=== PATIENT | female | born 1965 | race Caucasian/White ===

== ENCOUNTER 2016-06-18 18:49 | Emergency (ER) | payer OTHER ==
[~2016-06-18] VITALS: Ht 172.7 cm; Wt 95.0 kg
[~2016-06-18 18:49] MED LIST: ASPI325T PO; CHOL1CAP6 PO; HYDR-2768 PO; METO25 PO; NAPR-576 PO; ROSU40 PO
[2016-06-18 18:52] VITALS: BP 123/90; PULSE 116; RESP 17; TEMP 97.6; O2SAT 98
--- NOTE | 2016-06-19 22:48 | EKG ---
Date Performed: 06/18/2016 Time Performed: 19:31:36 PTAGE: 51 years EKG: Sinus rhythm POSSIBLE LEFT ATRIAL ENLARGEMENT POSSIBLE LEFT VENTRICULAR HYPERTROPHY ABNORMAL ECG PREVIOUS TRACING : 06/20/2015 08.22 DOCTOR: Bill Dennis Interpretating Date/Time 06/19/2016 22:44:56
== END 2016-06-18 20:01 | disposition left against medical advice (07) ==
LOC: NED 18:49
DX: R07.9 Chest pain, unspecified (principal); R94.31 Abnormal electrocardiogram [ECG] [EKG]
CPT/HCPCS: 93005; 99281

== ENCOUNTER 2016-07-01 21:29 | Inpatient (IN) | payer OTHER ==
[2016-07-01 21:31] VITALS: BP 196/85; PULSE 113; RESP 18; TEMP 97.4; O2SAT 100
[2016-07-01 21:43] VITALS: BP 171/98; PULSE 151; RESP 18; O2SAT 99
--- NOTE | 2016-07-01 21:44 | PD ---
HPI Chief Complaint: palpitations, chest pain Time Seen by Provider: 21:38 Travel History International Travel<30 days: No Contact w/Intl Traveler<30days: No History of Present Illness HPI 51-year-old female with a history of atrial fibrillation on metoprolol and aspirin arrives with chest pressure starting while she was operating a chainsaw. He describes a constant chest pain for about 5 hours now. Immediately after the symptoms started she took a metoprolol tablet. she reports strict compliance of aspirin and metoprolol. She denies any recent over exertion. A couple weeks prior she had a URI which resolved. She has no family history of early onset coronary artery disease. She denies a history of diabetes. She does not smoke. She was seen here within the last couple weeks in the waiting room for atrial fibrillation with a rapid ventricular response event however it resolved spontaneously and she left before evaluation. In the ER Valsalva type maneuver does not change heart rate. Lightheadedness/ dizziness accompanied the onset of atrial fibrillation. PFSH Past Medical History Heart Rhythm Problems: Yes (AFIB) Cardiovascular Problems: Yes (HTN, AFIB, ABLATION) Hypertension: Yes Past Surgical History Cardiac Surgery: Yes (CABG) Coronary Artery Bypass Graft: Yes Social History Alcohol Use: Yes Tobacco Use: No Substance Use: No Allergies-Medications (Allergen,Severity, Reaction): Coded Allergies: No Known Allergies (Unverified , 06/18/16) Reported Meds & Prescriptions Reported Meds & Active Scripts Active Reported Crestor (Rosuvastatin Calcium) 20 Mg Tab 20 Mg PO DAILY Metoprolol Tartrate 25 Mg Tab 25 Mg PO BID Aspirin 325 Mg Tab 325 Mg PO DAILY Review of Systems Except as stated in HPI: all other systems reviewed are Neg Physical Exam Narrative GENERAL: 51 yo F, pleasant, mild distress SKIN: Warm and dry. HEAD: Atraumatic. Normocephalic. EYES: Pupils equal and round. No scleral icterus. No injection or drainage. ENT: No nasal bleeding or discharge. Mucous membranes pink and moist. NECK: Trachea midline. No JVD. CARDIOVASCULAR: Tachycardia. Irregular. RESPIRATORY: No accessory muscle use. Clear to auscultation. Breath sounds equal bilaterally. GASTROINTESTINAL: Abdomen soft, non-tender, nondistended. Hepatic and splenic margins not palpable. MUSCULOSKELETAL: Extremities without clubbing, cyanosis, or edema. No obvious deformities. NEUROLOGICAL: Awake and alert. No obvious cranial nerve deficits. Motor grossly within normal limits. Five out of 5 muscle strength in the arms and legs. Normal speech. PSYCHIATRIC: Appropriate mood and affect; insight and judgment normal. Data Data Last Documented VS Vital Signs Date Time Temp Pulse Resp B/P Pulse Ox O2 Delivery O2 Flow Rate FiO2 07/01/16 22:59 52 18 131/104 99 07/01/16 22:06 Nasal Cannula 2 07/01/16 21:31 97.4 Orders Diltiazem Inj (Cardizem Inj) (07/01/16 21:51) Electrocardiogram (07/01/16 21:53) Basic Metabolic Panel (Bmp) (07/01/16 21:53) Ckmb (Isoenzyme) Profile (07/01/16 21:53) Complete Blood Count With Diff (07/01/16 21:53) Magnesium (Mg) (07/01/16 21:53) Prothrombin Time / Inr (Pt) (07/01/16 21:53) Act Partial Throm Time (Ptt) (07/01/16 21:53) Troponin I (07/01/16 21:53) Chest, Single Ap (07/01/16 21:53) Ecg Monitoring (07/01/16 21:53) Iv Access Insert/Monitor (07/01/16 21:53) Oximetry (07/01/16 21:53) Oxygen Administration (07/01/16 21:53) Sodium Chloride 0.9% Flush (Ns Flush) (07/01/16 22:00) Sodium Chlorid 0.9% 500 Ml Inj (Ns 500 M (07/01/16 22:00) Diltiazem Inj (Cardizem Inj) (07/01/16 22:00) Diltiazem Inj (Cardizem Inj) (07/01/16 22:00) Vital Signs (Adult) Q15MX4,Q4H (07/01/16 21:53) Oil Inspector / Telemetry (07/01/16 21:53) Cardiac Rhythm BOYD.Q8H (07/01/16 21:53) ^ Notify Dr: Other (07/01/16 21:53) Diltiazem Inj (Cardizem Inj) (07/01/16 22:00) CKMB (07/01/16 22:04) CKMB% (07/01/16 22:04) Electrocardiogram (07/01/16 ) Admit Order (Ed Use Only) (07/01/16 23:45) Labs Laboratory Tests Test 07/01/16 22:04 White Blood Count 17.3 TH/MM3 Red Blood Count 4.67 MIL/MM3 Hemoglobin 13.9 GM/DL Hematocrit 41.7 % Mean Corpuscular Volume 89.3 FL Mean Corpuscular Hemoglobin 29.8 PG Mean Corpuscular Hemoglobin 33.3 % Concent Red Cell Distribution Width 13.7 % Platelet Count 144 TH/MM3 Mean Platelet Volume 9.3 FL Neutrophils (%) (Auto) 77.0 % Lymphocytes (%) (Auto) 17.4 % Monocytes (%) (Auto) 4.9 % Eosinophils (%) (Auto) 0.1 % Basophils (%) (Auto) 0.6 % Neutrophils # (Auto) 13.4 TH/MM3 Lymphocytes # (Auto) 3.0 TH/MM3 Monocytes # (Auto) 0.8 TH/MM3 Eosinophils # (Auto) 0.0 TH/MM3 Basophils # (Auto) 0.1 TH/MM3 CBC Comment DIFF FINAL Differential Comment Prothrombin Time 10.7 SEC Prothromb Time International 1.0 RATIO Ratio Activated Partial 26.6 SEC Thromboplast Time Sodium Level 138 MEQ/L Potassium Level 4.0 MEQ/L Chloride Level 104 MEQ/L Carbon Dioxide Level 24.4 MEQ/L Anion Gap 10 MEQ/L Blood Urea Nitrogen 24 MG/DL Creatinine 1.06 MG/DL Estimat Glomerular Filtration 54 ML/MIN Rate Random Glucose 116 MG/DL Calcium Level 9.6 MG/DL Magnesium Level 2.0 MG/DL Total Creatine Kinase 117 U/L Creatine Kinase MB 3.2 NG/ML Troponin I 0.16 NG/ML [facility] Medical Decision Making Medical Screen Exam Complete: Yes Emergency Medical Condition: Yes Differential Diagnosis NSTEMI, unstable angina, coronary vasospasm, PE, PTX, aortic dissection, pericarditis, myocarditis, endocarditis, PNA, esophageal disease, aneurysm, musculoskeletal etiologies, anxiety, cocaine/sympathomimetic abuse Narrative Course EKG reveals atrial fibrillation with a rate of [address] changes present Repeat EKG demonstrates a sinus rhythm with a rate of 48 CBC & BMP Diagram 07/01/16 22:04 Tn 0.16 INR 1.0 Last 24 hours Impressions Chest X-Ray 2/1/17 2153 Signed Impressions: Service Date/Time: Friday, July 01, 2016 21:53 - CONCLUSION: No acute disease. Rob Ulloa MD Patient received 20 mg of IV diltiazem in the heart rate dropped to about 110 120. A second 20 mg boluses given about 15 minutes later and the heart rate dropped to about 50. She has no chest pain at 11:05 PM. She is in sinus rhythm. The troponin resulted at 0.16. Patient will be admitted for further investigation. Discussed with Dr. Junior. Critical Care Narrative Aggregate critical care time was 35 minutes. Time to perform other separately billable procedures was not included in the critical care time. My time did not include minutes spent treating any other patients simultaneously or on activities that did not directly contribute to the patient's treatment. The services I provided to this patient were to treat and/or prevent clinically significant deterioration that could result in: Cardiopulmonary arrest I provided critical care services requiring my management, as noted below: Chart data review, documentation time, medication orders and management, vital sign assessments/reviewing monitor data, ordering and reviewing lab tests, ordering and interpreting/reviewing x-rays and diagnostic studies, care of the patient and discussion of the patient with the admitting physicians. Diagnosis Primary Impression: Atrial fibrillation with RVR Additional Impressions: Chest pain Qualified Code: R07.9 - Chest pain, unspecified type Elevated troponin Admitting Information Admitting Physician Requests: Yuniel Blount MD Jul 01, 2016 21:43
[2016-07-01] MEDS ORDERED: DILTIAZEM HCL 25 MG/5 ML VIAL ONE (21:51)
[2016-07-01] MEDS ORDERED: METO25TA3 PO (21:52)
[2016-07-01] MEDS ORDERED: ASPI325T PO (21:52)
[2016-07-01] MEDS ORDERED: ROSU20 PO (21:52)
[2016-07-01] MEDS ORDERED: DILTIAZEM INJ 125 MG in SODIUM CHLORIDE 0.9% INJ 100 ML IV SCH (22:00)
[2016-07-01] MEDS ORDERED: SODIUM CHLORIDE 0.9% FLUSH 5 ML FLUSH IVF PRN (22:00)
[2016-07-01] MEDS ORDERED: SODIUM CHLORID 0.9% 500 ML INJ 500 ML IV ONE (22:00)
[2016-07-01] MEDS ORDERED: DILTIAZEM HCL 25 MG/5 ML VIAL IV ONE ×2 (22:00)
[2016-07-01 22:06] VITALS: RESP 18; O2SAT 98
--- NOTE | 2016-07-01 22:07 | RADRPT ---
EXAM DATE/TIME: 07/01/2016 21:53 [facility] COMPARISON: CHEST SINGLE AP, June 18, 2015, 23:39. INDICATIONS : Intermittent chest pain. MEDICAL HISTORY : None. SURGICAL HISTORY : Heart ablasion. ENCOUNTER: Initial ACUITY: 1 day PAIN SCORE: 10/10 LOCATION: middle chest. FINDINGS: A single view of the chest demonstrates the lungs to be symmetrically aerated without evidence of mas s, infiltrate or effusion. The cardiomediastinal contours are unremarkable. Osseous structures are intact. CONCLUSION: No acute disease. Rob Ulloa MD on July 01, 2016 at 22:06 Board Certified Radiologist. This report was verified electronically.
[2016-07-01 22:18] LABS: AUTOMATED NEUTROPHIL # 13.4 TH/MM3 (1.8-7.7); BASOPHIL # 0.1 TH/MM3 (0-0.2); BASOPHIL % 0.6 % (0.0-2.0); EOSINOPHIL % 0.1 % (0.0-4.0); HEMATOCRIT 41.7 % (35.0-46.0); HEMO FLAGS DIFF FINAL; LYMPH % 17.4 % (9.0-44.0); MEAN CELL VOLUME 89.3 FL (80.0-100.0); MEAN CORPUSCULAR HEMOGLOBIN 29.8 PG (27.0-34.0); MEAN CORPUSCULAR HGB CONC 33.3 % (32.0-36.0); MONO % 4.9 % (0.0-8.0); PLATELET COUNT 144 TH/MM3 (150-450); RED BLOOD COUNT 4.67 MIL/MM3 (4.00-5.30); RED CELL DISTRIBUTION WIDTH 13.7 % (11.6-17.2); WHITE BLOOD COUNT 17.3 TH/MM3 (4.0-11.0)
[2016-07-01 22:32] LABS: ANION GAP 10 MEQ/L (5-15); BICARBONATE 24.4 MEQ/L (21.0-32.0); BLOOD UREA NITROGEN 24 MG/DL (7-18); CHLORIDE 104 MEQ/L (98-107); GLOMERULAR FILTRATION RATE 54 ML/MIN (>89); SODIUM (NA) 138 MEQ/L (136-145)
[2016-07-01 22:35] LABS: CREATINE KINASE 117 U/L (26-192)
[2016-07-01 22:37] LABS: APTT (PATIENT) 26.6 SEC (24.3-30.1); PROTHROMBIN TIME - PATIENT 10.7 SEC (9.8-11.6)
[2016-07-01 22:48] LABS: CKMB 3.2 NG/ML (0.5-3.6)
[2016-07-01 22:59] VITALS: BP 131/104; PULSE 52; RESP 18; O2SAT 99
[2016-07-01] MEDS ORDERED: SODIUM CHLOR 0.9% 1000 ML INJ 1,000 ML IV SCH (23:47)
[2016-07-02] VITALS (7 sets, daily range): BP systolic 121–163; BP diastolic 72–92; PULSE 52–62; RESP 16–18; O2SAT 96–100
[2016-07-02] MEDS ORDERED: NALOXONE HCL 0.4 MG/ML AMP IV PRN
[2016-07-02] MEDS ORDERED: SODIUM CHLORIDE 0.9% FLUSH 5 ML FLUSH FLUSH PRN
--- NOTE | 2016-07-02 04:03 | HHI.HP ---
[facility] Service [facility] Primary Care Physician Unknown Admission Diagnosis AFib RVR, CP, Tn 0.18 Diagnoses: Travel History International Travel<30 Days: No Contact w/Intl Traveler <30 Da: No Traveled to Known Affected Are: No Past Family Social History Allergies: Coded Allergies: No Known Allergies (Unverified , 06/18/16) Physical Exam Vital Signs Vital Signs Date Time Temp Pulse Resp B/P Pulse Ox O2 Delivery O2 Flow Rate FiO2 07/02/16 02:20 54 18 150/79 99 07/02/16 00:12 52 18 133/73 100 Nasal Cannula 2 07/01/16 22:59 52 18 131/104 99 07/01/16 22:06 18 98 Nasal Cannula 2 07/01/16 22:06 97 Nasal Cannula 2 07/01/16 21:46 153 18 97 Nasal Cannula 2 07/01/16 21:43 151 18 171/98 99 07/01/16 21:31 97.4 113 18 196/85 100 Room Air Physical Exam GENERAL: This is a well-nourished, well-developed patient, in no apparent distress. SKIN: No rashes, ecchymoses or lesions. Cool and dry. HEAD: Atraumatic. Normocephalic. No temporal or scalp tenderness. EYES: Pupils equal round and reactive. Extraocular motions intact. No scleral icterus. No injection or drainage. ENT: Nose without bleeding, purulent drainage or septal hematoma. Throat without erythema, tonsillar hypertrophy or exudate. Uvula midline. Airway patent. NECK: Trachea midline. No JVD or lymphadenopathy. Supple, nontender, no meningeal signs. CARDIOVASCULAR: Regular rate and rhythm without murmurs, gallops, or rubs. RESPIRATORY: Clear to auscultation. Breath sounds equal bilaterally. No wheezes , rales, or rhonchi. GASTROINTESTINAL: Abdomen soft, non-tender, nondistended. No hepato-splenomegaly , or palpable masses. No guarding. MUSCULOSKELETAL: Extremities without clubbing, cyanosis, or edema. No joint tenderness, effusion, or edema noted. No calf tenderness. Negative Homans sign bilaterally. NEUROLOGICAL: Awake and alert. Cranial nerves II through XII intact. Motor and sensory grossly within normal limits. Five out of 5 muscle strength in all muscle groups. Normal speech. Laboratory Laboratory Tests Test 07/01/16 22:04 White Blood Count 17.3 Red Blood Count 4.67 Hemoglobin 13.9 Hematocrit 41.7 Mean Corpuscular Volume 89.3 Mean Corpuscular Hemoglobin 29.8 Mean Corpuscular Hemoglobin 33.3 Concent Red Cell Distribution Width 13.7 Platelet Count 144 Mean Platelet Volume 9.3 Neutrophils (%) (Auto) 77.0 Lymphocytes (%) (Auto) 17.4 Monocytes (%) (Auto) 4.9 Eosinophils (%) (Auto) 0.1 Basophils (%) (Auto) 0.6 Neutrophils # (Auto) 13.4 Lymphocytes # (Auto) 3.0 Monocytes # (Auto) 0.8 Eosinophils # (Auto) 0.0 Basophils # (Auto) 0.1 CBC Comment DIFF FINAL Differential Comment Prothrombin Time 10.7 Prothromb Time International 1.0 Ratio Activated Partial 26.6 Thromboplast Time Sodium Level 138 Potassium Level 4.0 Chloride Level 104 Carbon Dioxide Level 24.4 Anion Gap 10 Blood Urea Nitrogen 24 Creatinine 1.06 Estimat Glomerular Filtration 54 Rate Random Glucose 116 Calcium Level 9.6 Magnesium Level 2.0 Total Creatine Kinase 117 Creatine Kinase MB 3.2 Troponin I 0.16 Result Diagram: 07/01/16220307/01/162203 Alfonso Junior MD Jul 02, 2016 04:03
[2016-07-02 04:40] LABS: BICARBONATE 27.6 MEQ/L (21.0-32.0); POTASSIUM 3.7 MEQ/L (3.5-5.1)
[2016-07-02 05:49] LABS: BASOPHIL # 0.1 TH/MM3 (0-0.2); BASOPHIL % 0.8 % (0.0-2.0); EOSINOPHIL # 0.1 TH/MM3 (0-0.4); EOSINOPHIL % 0.5 % (0.0-4.0); HEMATOCRIT 36.1 % (35.0-46.0); HEMO FLAGS DIFF FINAL; LYMPH % 31.4 % (9.0-44.0); LYMPHOCYTE # 4.4 TH/MM3 (1.0-4.8); MEAN CORPUSCULAR HEMOGLOBIN 30.3 PG (27.0-34.0); MEAN CORPUSCULAR HGB CONC 34.1 % (32.0-36.0); MONO % 10.5 % (0.0-8.0); NEUT % 56.8 % (16.0-70.0); PLATELET COUNT 142 TH/MM3 (150-450); RED BLOOD COUNT 4.05 MIL/MM3 (4.00-5.30); RED CELL DISTRIBUTION WIDTH 13.7 % (11.6-17.2)
[2016-07-02] MEDS ORDERED: HEPARIN SODIUM - IV 10,000 UNITS/10 ML VIAL IV ONE (08:00)
[2016-07-02] MEDS ORDERED: HEPARIN-D5W INJ 250 ML IV SCH (08:00)
--- NOTE | 2016-07-02 08:04 | HHI.HP ---
[facility] Admission Diagnosis AFib RVR, CP, Tn 0.18 Diagnoses: Chief Complaint: Palpitations, chest pain Travel History International Travel<30 Days: No Contact w/Intl Traveler <30 Da: No Traveled to Known Affected Are: No History of Present Illness History from patient, ER physician communication, and review of medical records. Patient reported that she was using her chainsaw and all of a sudden started feeling palpitations. She stated that she has history of atrial fibrillation and she knew that she was going into A. fib with RVR. She then started having chest pains, substernal, with radiation to her jaw, and left upper extremity. She therefore called 911. 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 She states she has had ablation done about 4 years ago. She was told at that time that she has hypertrophic cardiomyopathy which is unusual for her age. She was told that if her A. fib does not improve and affects her heart more, she might need AICD. She has had angiograms done previously and was told that she has clean coronaries. She denies any peripheral edema. Denies dyspnea on exertion. Denies any recent fever/nausea/vomiting/diarrhea/urinary burning or pain on urination. Denies any hematemesis/hematochezia/melena/hematuria. In the emergency room, patient was noted to be in A. fib with RVR and was given Cardizem IV boluses. After 2 doses of Cardizem 20 mg IV, patient's heart rate came down to 57. Review of Systems Other 12 point review of system is obtained and is negative apart from what is mentioned in HPI Past Family Social History Past Medical History Atrial fibrillation Hypertension Sleep apnea Hypertrophic cardiomyopathy Past Surgical History Ablation Right knee replacement Reported Medications Patient's medications listed in EMRreviewed Allergies: Coded Allergies: No Known Allergies (Unverified , 06/18/16) Family History Denies any family history of any medical conditions apart from cancers in some members. Social History Denies smoking/alcohol abuse/drug abuse. Physical Exam Vital Signs Vital Signs Date Time Temp Pulse Resp B/P Pulse Ox O2 Delivery O2 Flow Rate FiO2 07/02/16 06:12 54 18 163/92 96 07/02/16 04:16 53 18 148/77 99 07/02/16 02:20 54 18 150/79 99 07/02/16 00:12 52 18 133/73 100 Nasal Cannula 2 07/01/16 22:59 52 18 131/104 99 07/01/16 22:06 18 98 Nasal Cannula 2 07/01/16 22:06 97 Nasal Cannula 2 07/01/16 21:46 153 18 97 Nasal Cannula 2 07/01/16 21:43 151 18 171/98 99 07/01/16 21:31 97.4 113 18 196/85 100 Room Air Physical Exam GENERAL: This is a well-nourished, well-developed patient, in no apparent distress. SKIN: No rashes, ecchymoses or lesions. Cool and dry. HEAD: Atraumatic. Normocephalic. No temporal or scalp tenderness. EYES: No scleral icterus. No injection or drainage. ENT: Nose without bleeding, purulent drainage or septal hematoma. Airway patent. NECK: Trachea midline. No JVD CARDIOVASCULAR: Regular rate and rhythm without murmurs, gallops, or rubs. RESPIRATORY: Clear to auscultation. Breath sounds equal bilaterally. No wheezes , rales, or rhonchi. GASTROINTESTINAL: Abdomen soft, non-tender, nondistended. No guarding. MUSCULOSKELETAL: Extremities without clubbing, cyanosis, or edema. No calf tenderness. NEUROLOGICAL: Awake and alert. Motor and sensory grossly within normal limits. Normal speech. Laboratory Laboratory Tests Test 07/01/16 07/02/16 07/02/16 22:04 03:45 05:09 White Blood Count 17.3 14.0 Red Blood Count 4.67 4.05 Hemoglobin 13.9 12.3 Hematocrit 41.7 36.1 Mean Corpuscular Volume 89.3 89.0 Mean Corpuscular Hemoglobin 29.8 30.3 Mean Corpuscular Hemoglobin 33.3 34.1 Concent Red Cell Distribution Width 13.7 13.7 Platelet Count 144 142 Mean Platelet Volume 9.3 9.5 Neutrophils (%) (Auto) 77.0 56.8 Lymphocytes (%) (Auto) 17.4 31.4 Monocytes (%) (Auto) 4.9 10.5 Eosinophils (%) (Auto) 0.1 0.5 Basophils (%) (Auto) 0.6 0.8 Neutrophils # (Auto) 13.4 8.0 Lymphocytes # (Auto) 3.0 4.4 Monocytes # (Auto) 0.8 1.5 Eosinophils # (Auto) 0.0 0.1 Basophils # (Auto) 0.1 0.1 CBC Comment DIFF FINAL DIFF FINAL Differential Comment Prothrombin Time 10.7 Prothromb Time International 1.0 Ratio Activated Partial 26.6 Thromboplast Time Sodium Level 138 141 Potassium Level 4.0 3.7 Chloride Level 104 107 Carbon Dioxide Level 24.4 27.6 Anion Gap 10 6 Blood Urea Nitrogen 24 20 Creatinine 1.06 0.96 Estimat Glomerular Filtration 54 61 Rate Random Glucose 116 92 Calcium Level 9.6 8.8 Magnesium Level 2.0 Total Creatine Kinase 117 96 Creatine Kinase MB 3.2 Troponin I 0.16 0.22 Result Diagram: 07/02/16 0509 07/02/16 0345 Imaging Last 48 hours Impressions Chest X-Ray 07/01/16 3733 Signed Impressions: Service Date/Time: Friday, July 01, 2016 21:53 - CONCLUSION: No acute disease. Rob Ulloa MD Assessment and Plan Problem List: (1) Chest pain ICD Code: R07.9 Status: Acute (2) Elevated troponin ICD Code: R77.8 Status: Acute (3) Atrial fibrillation with RVR ICD Code: I48.91 Status: Acute Assessment and Plan Impression: Non-ST elevation [place] versus demand ischemia A. fib with RVR Leukocytosis with left shiftsecondary to dehydration/acute stress Hypertension Sleep apnea Hypertrophic cardiomyopathy Plan: Serial cardiac enzymes and EKGs. Aspirin full dose. Started on heparin drip. Telemetry monitoring. Cardiology consult for ischemic workup. Echocardiogram Resume home medications/beta chelsea/statin. DVT prophylaxison heparin drip. Discussed Condition With Patient, ER physician Physician Certification 2 Midnight Certification Type: Admission for Inpatient Services Order for Inpatient Services The services are ordered in accordance with Medicare regulations or non- Medicare payer requirements, as applicable. In the case of services not specified as inpatient-only, they are appropriately provided as inpatient services in accordance with the 2-midnight benchmark. Estimated LOS (days): 2 days is the estimated time the patient will need to remain in the hospital, assuming treatment plan goals are met and no additional complications. Post-Hospital Plan: Home Problem Qualifiers (1) Chest pain: Qualified Code: R07.9 - Chest pain, unspecified type Alfonso Junior MD Jul 02, 2016 08:04
[2016-07-02] MEDS ORDERED: METOPROLOL TARTRATE 25 MG TAB PO SCH (09:00)
[2016-07-02] MEDS ORDERED: ASPIRIN 325 MG TAB PO SCH (09:00)
[2016-07-02] MEDS ORDERED: SODIUM CHLORIDE 0.9% FLUSH 5 ML FLUSH FLUSH SCH (09:00)
[2016-07-02] MEDS ORDERED: ATORVASTATIN 40 MG TAB PO SCH (09:00)
[2016-07-02 09:25] LABS: HEMATOCRIT 37.9 % (35.0-46.0); MEAN CORPUSCULAR HEMOGLOBIN 29.6 PG (27.0-34.0); MEAN CORPUSCULAR HGB CONC 32.9 % (32.0-36.0); PLATELET COUNT 152 TH/MM3 (150-450); RED BLOOD COUNT 4.21 MIL/MM3 (4.00-5.30); REVIEW FLAG FINAL; WHITE BLOOD COUNT 13.1 TH/MM3 (4.0-11.0)
[2016-07-02 09:36] LABS: APTT (PATIENT) 26.1 SEC (24.3-30.1); PROTHROMBIN TIME - PATIENT 11.3 SEC (9.8-11.6)
[2016-07-02] MEDS ORDERED: METOPROLOL TARTRATE 25 MG TAB PO ONE (10:00)
--- NOTE | 2016-07-02 10:05 | MB ---
cc: DUKE GUEVARA DO DATE OF CONSULTATION: July 02, 2016. REASON FOR CONSULTATION Atrial fibrillation with RVR, elevated troponin. HISTORY OF PRESENT ILLNESS Kati Palacio is a pleasant 51-year-old female who presents to [facility] Emergency Room on July 02, 2016 due to palpitations. She states that she was doing yard work including cutting up trees and she started getting somewhat lightheaded. She sat down and then felt her heart go into atrial fibrillation. She started having some chest pain with this and therefore called 9-1-1. She had a similar episode 2-3 weeks ago but by the time she made it to the emergency room she had converted back to normal sinus rhythm and felt that she did not need to be seen at that time. In seeing her at this time she appears well, in no acute distress, currently in normal sinus rhythm. She had a similar type episode around a year ago and at that time had an elevated troponin and underwent cardiac catheterization which showed no significant disease. She is currently down visiting from [place] which she does for a few months in the winter every year. 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 PAST MEDICAL HISTORY 1. Atrial fibrillation. 2. Hypertension. 3. Possible sleep apnea (told 4-5 years ago that she may have some sleep apnea but does not qualify for the machine). 4. Hypertrophic cardiomyopathy. PAST SURGICAL HISTORY 1. Atrial fibrillation ablation (4-5 years ago, done in [place]). 2. Right knee replacement. ALLERGIES NO KNOWN DRUG ALLERGIES. MEDICATIONS 1. Aspirin 325 mg daily. 2. Crestor 20 mg daily. 3. Metoprolol tartrate 25 mg b.i.d. FAMILY HISTORY Denies premature coronary artery disease or sudden cardiac within the family. SOCIAL HISTORY Denies tobacco, alcohol or drug abuse. REVIEW OF SYSTEMS 14 systems were reviewed in the history and physical and above pertinent positives and negatives above, otherwise negative. PHYSICAL EXAMINATION VITAL SIGNS: Temperature 97.4, heart rate 54, blood pressure 163/92, respirations 18, pulse ox 96% on 2 liters. GENERAL: The patient appears well, in no acute distress, alert, awake and oriented x3. Extraocular muscles intact. Mucous membranes moist. NECK: Supple. No JVD at 45 degrees. No carotid bruits heard bilaterally. Carotid upstroke is brisk in nature. HEART: Heart is regular rate and rhythm. Positive first and second heart sounds with a 1/6 early peaking crescendo-decrescendo murmur to the right sternal border. LUNGS: Clear to auscultation bilaterally. No wheezes, rales or rhonchi. ABDOMEN: Soft, nontender, nondistended. No organomegaly noted. EXTREMITIES: Show no clubbing, cyanosis or edema. Femoral and distal pulses are intact bilaterally. NEUROLOGIC: No focal deficits. SKIN: Warm, dry and intact. OSTEOPATHIC: No kyphoscoliosis, lordosis or paraspinal tender points. LABORATORY FINDINGS White blood cells 13.1, hemoglobin 12.5, hematocrit 37.9, platelets 152. Potassium 3.7, BUN 20, creatinine 0.96, troponin 0.16 increasing to 0.22. Electrocardiogram (May 31, 2016 at 2145) atrial fibrillation with rapid ventricular response, nonspecific ST-T wave changes. Electrocardiogram (July 02, 2016 at 0353) sinus bradycardia at 51 beats per minute, possible left atrial enlargement, LVH with secondary changes. IMPRESSION 1. Atrial fibrillation with rapid ventricular response, converting to normal sinus rhythm. 2. History of atrial fibrillation ablation (in [place] 4-5 years ago). 3. Previous cardiac catheterization (June 20, 2015) with no significant coronary artery disease. 4. Mildly elevated troponin most likely due to atrial fibrillation with RVR. 5. Hypertension. 6. Questionable sleep apnea (the patient was tested 4-5 years ago and said that she did not qualify but may have mild sleep apnea). 7. Hypertrophic cardiomyopathy by history. RECOMMENDATIONS 1. Kati Palacio has since converted from atrial fibrillation to normal sinus rhythm. We will attempt to place her on an increased dose of Lopressor to try to control her heart rate. 2. I did express to her that if she continues to have episodes that she has had two in the past few weeks, that consideration could be made for repeat atrial fibrillation ablation. 3. She did have a cardiac catheterization around 1 year ago which showed normal coronary arteries. I feel that her elevation of troponin is most likely from atrial fibrillation with RVR but I feel that we should rule out underlying progression of coronary artery disease. She will be scheduled for a pharmacologic nuclear stress test this afternoon. 4. As far as anticoagulation for atrial fibrillation, she would be a CHADS vasc 2 for hypertension and being a female. I did discuss this with her and she would like to further discuss this with her lay out drafter as he placed her only on aspirin. 5. I also did talk to her about having outpatient sleep study evaluation as she previously was told she may have mild sleep apnea. Thank you for allowing me to see Kati Palacio. If there are any questions please do not hesitate to call. Duke Guevara DO VGP/TLL /9:28 AM /9:46 AM
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
[2016-07-02] MEDS ORDERED: REGADENOSON INJ 0.4 MG/5 ML SYR ONE (12:21)
--- NOTE | 2016-07-02 13:12 | EC ---
Study Study Date:07/02/2016 STUDY CONCLUSIONS SUMMARY - Left ventricle: The cavity size was normal. Wall thickness was increased in a pattern of moderate LVH. There was concentric hypertrophy. Systolic function was normal. The estimated ejection fraction was in the range of 55% to 60%. Wall motion was normal; there were no regional wall motion abnormalities. - Aortic valve: Trace regurgitation. - Left atrium: The atrium was mildly dilated. - Pulmonary arteries: PA peak pressure: 44mm Hg (S). If LV function is below 40, please consider prescribing an ACEI or ARB or document rationale for non-use. PROCEDURE DATA STUDY STATUS: Elective. Procedure: Transthoracic echocardiography. Image quality was good. Scanning was performed from the parasternal, apical, and subcostal acoustic windows. Study completion: The patient tolerated the procedure well. Transthoracic echocardiography. M-mode, complete 2D, complete spectral Doppler, and color Doppler. Patient status: Inpatient. CARDIAC ANATOMY LEFT VENTRICLE: The cavity size was normal. Wall thickness was increased in a pattern of moderate LVH. There was concentric hypertrophy. Systolic function was normal. The estimated ejection fraction was in the range of 55% to 60%. Wall motion was normal; there were no regional wall motion abnormalities. AORTIC VALVE: The valve appears to be grossly normal. Doppler: There was no stenosis. Trace regurgitation. MITRAL VALVE: The valve appears to be grossly normal. Doppler: There was no evidence for stenosis. No significant regurgitation. LEFT ATRIUM: The atrium was mildly dilated. RIGHT VENTRICLE: The cavity size was normal. Systolic function was normal. PULMONIC VALVE: Not well visualized. TRICUSPID VALVE: The valve appears to be grossly normal. Doppler: There was no evidence for stenosis. Trace regurgitation. PERICARDIUM: There was no pericardial effusion. BASIC MEASUREMENTS ADULT Normal Left ventricle LV internal dimension, ED, chordal level, 45.2 mm 43-52 PLAX LV internal dimension, ES, chordal level, 34 mm 23-38 PLAX Fractional shortening, chordal level, PLAX *25 % >29 LV posterior wall thickness, ED 10.5 mm IVS/LVPW ratio, ED *1.64 <1.3 Ventricular septum Septal thickness, ED 17.2 mm Aortic valve Leaflet separation 22 mm 15-26 Right ventricle RV internal dimension, ED, PLAX 27.1 mm 19-38 BASIC MEASUREMENTS ADULT Normal Aortic valve Leaflet separation 22 mm 15-26 Aorta Root diameter, ED 32 mm 20-37 Left atrium Anterior-posterior dimension, ES *46 mm 19-40 LA/aortic root ratio 1.44 DOPPLER MEASUREMENTS ADULT Normal Main pulmonary artery Pressure, S *44 mm Hg =30 Tricuspid valve Regurgitant peak velocity 290 cm/s Peak RV-RA gradient, S 34 mm Hg Maximal regurgitant velocity 290 cm/s Systemic veins Estimated CVP 10 mm Hg Right ventricle RV pressure, S *44 mm Hg <30 LEGEND: Mean values are shown as u=mean value. Asterisk (*) nelson values outside specified normal range. Prepared and signed by Duke Ross [id number]
[2016-07-02] MEDS ORDERED: HEPARIN SODIUM - IV 10,000 UNITS/10 ML VIAL IV PRN ×2 (14:00)
--- NOTE | 2016-07-02 14:40 | RADRPT ---
EXAM DATE/TIME: 07/02/2016 12:04 [facility] COMPARISON: No previous studies available for comparison. INDICATIONS : Chest pain while doing yard work. Atrial fibrillation. Coronary artery bypass graft. DOSE: 25.9 mCi Tc99m Myoview at stress. 8.7 mCi Tc99m Myoview at rest. 0.4 mg Lexiscan STRESS SYMPTOMS: Lightheaded. EJECTION FRACTION: 70% MEDICAL HISTORY : Hypertension. SURGICAL HISTORY : CABG Ablation, right knee surgery and cardiac cath. ENCOUNTER: Initial ACUITY: 1 day PAIN SCALE: 3/10 LOCATION: Bilateral chest TECHNIQUE: The patient underwent pharmacologic stress with infusion of prescribed dose. Continuous ECG tracing was monitored during stress. Gated SPECT imaging was performed after stress and conventional SPECT i maging was performed at rest. The examination was performed on a SPECT/CT scanner, both attenuation and non-corrected datasets were reviewed. FINDINGS: DISTRIBUTION: The maximum perfused segment at stress is in the inferior wall. PERFUSION STUDY: The pattern of perfusion at stress is within normal limits. GATED STUDY: There is intact wall motion and thickening without hypokinetic or dyskinetic segments. CONCLUSION: Unremarkable myocardial perfusion scan. No evidence of fixed or reversible perfusion abnormalities. Normal wall motion and ejection fraction. RISK CATEGORY: Low (<1% Annual Mortality Rate) Juanjo Aguilar MD on July 02, 2016 at 14:37 Board Certified Radiologist. This report was verified electronically.
[2016-07-02] MEDS ORDERED: METO-309 PO ×4 (15:45→17:22)
--- NOTE | 2016-07-02 15:46 | HHI.DCPOC ---
Discharge Care Plan Diagnosis: (1) Atrial fibrillation with RVR (2) Elevated troponin (3) Chest pain Goals to Promote Your Health * To prevent worsening of your condition and complications * To maintain your health at the optimal level Directions to Meet Your Goals Take your medications as prescribed Follow your dietary instruction Follow activity as directed Keep your appointments as scheduled Take your immunizations and boosters as scheduled If your symptoms worsen call your PCP, if no PCP go to Urgent Care Center or Emergency Room Smoking is Dangerous to Your Health. Avoid second hand smoke Call the 24-hour hour crisis hotline for domestic abuse at Anjana Ham PA-C Jul 02, 2016 3:46 pm
[2016-07-02 15:50] LABS: APTT (PATIENT) 25.2 SEC (24.3-30.1)
[2016-07-02] MEDS ORDERED: METOPROLOL TARTRATE 50 MG TAB PO ONE (17:30)
[2016-07-02] MEDS ORDERED: METOPROLOL TARTRATE 50 MG TAB PO SCH (21:00)
--- NOTE | 2016-07-03 06:54 | EKG ---
Date Performed: 07/02/2016 Time Performed: 03:53:25 PTAGE: 51 years EKG: SINUS BRADYCARDIA POSSIBLE LEFT ATRIAL ENLARGEMENT POSSIBLE RIGHT VENTRICULAR CONDUCTION DE LAY LEFT VENTRICULAR HYPERTROPHY AND ST-T CHANGE ABNORMAL ECG PREVIOUS TRACING : 06/18/2016 19.31 Compared to prior tracing no significant change DOCTOR: Christian Fuller Interpretating Date/Time 07/03/2016 06:51:08
--- NOTE | 2016-07-03 06:57 | EKG ---
Date Performed: 07/01/2016 Time Performed: 23:05:32 PTAGE: 51 years EKG: SINUS BRADYCARDIA POSSIBLE LEFT ATRIAL ENLARGEMENT POSSIBLE LEFT VENTRICULAR HYPERTROPHY PA OLONGED QT INTERVAL ABNORMAL ECG PREVIOUS TRACING : 07/01/2016 21.44 Compared to the previous tracing, AFib with RVR is no long er present DOCTOR: Christian Fuller Interpretating Date/Time 07/03/2016 06:55:27
--- NOTE | 2016-07-03 06:59 | EKG ---
Date Performed: 07/01/2016 Time Performed: 21:44:03 PTAGE: 51 years EKG: ATRIAL FIBRILLATION WITH RAPID VENTRICULAR RESPONSE VOLTAGE CRITERIA FOR LVH ST DEVIATION A ND MODERATE T-WAVE ABNORMALITY, CONSIDER LATERAL ISCHEMIA ABNORMAL ECG NO PREVIOUS TRACING DOCTOR: Christian Fuller Interpretating Date/Time 07/03/2016 06:58:11
== END 2016-07-02 17:00 | disposition home or self-care (01) | DRG 310 ==
LOC: NEPE 21:29 → NEDA 23:47 → NEDH 07-02 04:05 → OBSVTOIN 07-02 07:52 → NEDH 07-02 09:46
PROVIDERS: ADMIT Hospitalist; ATTEND Hospitalist
DX: I48.91 Unspecified atrial fibrillation (principal); I42.2 Other hypertrophic cardiomyopathy; I10 Essential (primary) hypertension; E86.0 Dehydration; D72.829 Elevated white blood cell count, unspecified; G47.30 Sleep apnea, unspecified; E78.5 Hyperlipidemia, unspecified; Z96.651 Presence of right artificial knee joint
CPT/HCPCS: 71010; 78452; 80048; 82550; 82552; 83735; 84484; 85025; 85027; 85610; 85730; 93005; 93017; 93306; 96361; 96374; A9502; J2785; J7030; J7040

== ENCOUNTER 2017-07-02 22:35 | Observation (INO) | payer OTHER ==
[~2017-07-02] VITALS: Ht 170.2 cm; Wt 100.5 kg
[~2017-07-02 22:35] MED LIST changes: +ASPI-183 PO; -ASPI325T PO; -CHOL1CAP6 PO; -HYDR-2768 PO; +METO-309 PO; -METO25 PO; -NAPR-576 PO; +ROSU20 PO; -ROSU40 PO
[2017-07-02 22:37] VITALS: BP 210/110; PULSE 62; RESP 18; TEMP 97.8; O2SAT 98
[2017-07-02] MEDS ORDERED: SODIUM CHLORIDE 0.9% FLUSH 10 ML FLUSH IVF PRN (23:00)
[2017-07-02 23:13] VITALS: BP 190/91; PULSE 52; RESP 18; O2SAT 98; O2SAT 99
--- NOTE | 2017-07-02 23:13 | RADRPT ---
EXAM DATE/TIME: 07/02/2017 22:51 [facility] COMPARISON: CHEST SINGLE AP, July 01, 2016, 21:53. INDICATIONS : Chest MEDICAL HISTORY : Atrial fib SURGICAL HISTORY : Ablation ENCOUNTER: Initial ACUITY: 1 day PAIN SCORE: 10/10 LOCATION: Bilateral chest FINDINGS: Cardiomegaly. Degenerative changes of the spine. Clear lungs. CONCLUSION: No acute disease. Anthony Hernandez MD on July 02, 2017 at 23:10 Board Certified Radiologist. This report was verified electronically.
[2017-07-02] MEDS ORDERED: APIX5TAB PO (23:17)
[2017-07-02] MEDS ORDERED: ASPI81CH6 PO (23:17)
[2017-07-02] MEDS ORDERED: SUCR1TAB PO (23:17)
[2017-07-02] MEDS ORDERED: DILT120T PO (23:17)
[2017-07-02] MEDS ORDERED: VITA3000 PO (23:19)
[2017-07-02] MEDS ORDERED: OMEP40CA2 (23:19)
[2017-07-02 23:40] LABS: AUTOMATED NEUTROPHIL # 11.3 TH/MM3 (1.8-7.7); BASOPHIL # 0.1 TH/MM3 (0-0.2); BASOPHIL % 0.6 % (0.0-2.0); EOSINOPHIL # 0.1 TH/MM3 (0-0.4); EOSINOPHIL % 0.6 % (0.0-4.0); HEMOGLOBIN 13.7 GM/DL (11.6-15.3); LYMPH % 22.8 % (9.0-44.0); LYMPHOCYTE # 3.8 TH/MM3 (1.0-4.8); MEAN CELL VOLUME 88.6 FL (80.0-100.0); MEAN CORPUSCULAR HEMOGLOBIN 29.7 PG (27.0-34.0); MEAN CORPUSCULAR HGB CONC 33.5 % (32.0-36.0); MEAN PLATELET VOLUME 9.2 FL (7.0-11.0); MONO % 7.5 % (0.0-8.0); MONOCYTE # 1.2 TH/MM3 (0-0.9); NEUT % 68.5 % (16.0-70.0); PLATELET COUNT 173 TH/MM3 (150-450); RED BLOOD COUNT 4.62 MIL/MM3 (4.00-5.30); WHITE BLOOD COUNT 16.5 TH/MM3 (4.0-11.0)
[2017-07-02 23:51] LABS: PROTHROMBIN TIME - PATIENT 10.4 SEC (9.8-11.6)
[2017-07-03] VITALS (7 sets, daily range): BP systolic 108–171; BP diastolic 64–92; PULSE 51–60; RESP 16–18; TEMP 97.7–98.1; O2SAT 95–99
[2017-07-03] LABS: ALBUMIN 3.6 GM/DL (3.4-5.0); ALT (GPT) 34 U/L (10-53); AST (GOT) 23 U/L (15-37); BICARBONATE 27.9 MEQ/L (21.0-32.0); BLOOD UREA NITROGEN 18 MG/DL (7-18); CALCIUM 9.1 MG/DL (8.5-10.1); CHLORIDE 103 MEQ/L (98-107); CREATININE 0.98 MG/DL (0.50-1.00); GLOMERULAR FILTRATION RATE 59 ML/MIN (>89); GLUCOSE,RANDOM 117 MG/DL (74-106); MAGNESIUM 2.1 MG/DL (1.5-2.5); SODIUM (NA) 137 MEQ/L (136-145)
[2017-07-03 00:02] LABS: ALKALINE PHOSPHATASE 91 U/L (45-117); TOTAL BILIRUBIN ADULT 0.3 MG/DL (0.2-1.0); TROPONIN I 0.45 NG/ML (0.02-0.05)
--- NOTE | 2017-07-03 00:12 | PD ---
HPI Chief Complaint: Chest Pain Time Seen by Provider: 23:42 Travel History International Travel<30 days: No Contact w/Intl Traveler<30days: No Traveled to known affect area: No History of Present Illness HPI Patient is a 52-year-old female presents emergency department for evaluation of epigastric pain radiating up into her neck for the past few days, she states she went to an urgent care center and [place] with a did blood work and an EKG and said it was in her heart and started her on some reflux medication but it is not helping, she has a history of coronary artery disease but no stents, she was last cathed in March 2017 in [place], she states she had no significant blockages only some minor stenoses, she states the pain is in the middle of her chest discomfort was mild nausea no vomiting, states that severe and for the past few days PFSH Past Medical History Heart Rhythm Problems: Yes (AFIB) Cardiovascular Problems: Yes (ABLATION X1) Diminished Hearing: No Hypertension: Yes ?: Not LMP: "ABOUT 5 YEARS AGO" Menopausal: Yes Past Surgical History Cardiac Surgery: Yes (CABG) Coronary Artery Bypass Graft: Yes Social History Alcohol Use: No Tobacco Use: No Substance Use: No Allergies-Medications (Allergen,Severity, Reaction): Coded Allergies: No Known Allergies (Unverified Allergy, Unknown, 07/03/17) Reported Meds & Prescriptions Reported Meds & Active Scripts Active Lopressor (Metoprolol Tartrate) 50 Mg Tab 50 Mg PO BID Reported Vitamin D3 (Cholecalciferol) 3,000 Unit Tab 3,000 Units PO DAILY Omeprazole 40 Mg Cap 40 Mg DAILY Aspirin Low Dose (Aspirin) 81 Mg Chew 81 Mg PO DAILY Diltiazem (Diltiazem HCl) 120 Mg Tab 120 Mg PO DAILY Eliquis (Apixaban) 5 Mg Tab 5 Mg PO BID Sucralfate 1 Gram Tab 1 Gm PO QID on empty stomach Crestor (Rosuvastatin Calcium) 20 Mg Tab 20 Mg PO DAILY Review of Systems Except as stated in HPI: all other systems reviewed are Neg Physical Exam Narrative GENERAL: Well-developed well-nourished in no obvious distress SKIN: Focused skin assessment warm/dry. HEAD: Atraumatic. Normocephalic. EYES: Pupils equal and round. No scleral icterus. No injection or drainage. ENT: No nasal bleeding or discharge. Mucous membranes pink and moist. NECK: Trachea midline. No JVD. CARDIOVASCULAR: Regular rate and rhythm. No murmur appreciated. 2+ bilateral equal pulses in all 4 extremities RESPIRATORY: No accessory muscle use. Clear to auscultation. Breath sounds equal bilaterally. GASTROINTESTINAL: Abdomen soft, non-tender, nondistended. Hepatic and splenic margins not palpable. MUSCULOSKELETAL: No obvious deformities. No clubbing. No cyanosis. No edema. NEUROLOGICAL: Awake and alert. No obvious cranial nerve deficits. Motor grossly within normal limits. Normal speech. PSYCHIATRIC: Appropriate mood and affect; insight and judgment normal. Data Data Last Documented VS Vital Signs Date Time Temp Pulse Resp B/P (MAP) Pulse Ox O2 Delivery O2 Flow Rate FiO2 07/03/17 00:35 54 16 171/85 (113) 95 07/02/17 23:13 Room Air 07/02/17 22:37 97.8 Orders Orders Electrocardiogram (07/02/17 22:48) Ckmb (Isoenzyme) Profile (07/02/17 22:48) Complete Blood Count With Diff (07/02/17 22:48) Comprehensive Metabolic Panel (07/02/17 22:48) Magnesium (Mg) (07/02/17 22:48) Prothrombin Time / Inr (Pt) (07/02/17 22:48) Act Partial Throm Time (Ptt) (07/02/17 22:48) Troponin I (07/02/17 22:48) Lipase (07/02/17 22:48) Chest, Single Ap (07/02/17 22:48) Ecg Monitoring (07/02/17 22:48) Iv Access Insert/Monitor (07/02/17 22:48) Oximetry (07/02/17 22:48) Oxygen Administration (07/02/17 22:48) Sodium Chloride 0.9% Flush (Ns Flush) (07/02/17 23:00) Nitroglycerin Sl (Nitrostat Sl) (07/03/17 00:15) Nitroglycerin 2% Oint (Nitroglycerin 2% (07/03/17 00:15) Admit Order (Ed Use Only) (07/03/17 ) Labs Laboratory Tests Test 07/02/17 23:10 White Blood Count 16.5 TH/MM3 Red Blood Count 4.62 MIL/MM3 Hemoglobin 13.7 GM/DL Hematocrit 41.0 % Mean Corpuscular Volume 88.6 FL Mean Corpuscular Hemoglobin 29.7 PG Mean Corpuscular Hemoglobin Concent 33.5 % Red Cell Distribution Width 14.0 % Platelet Count 173 TH/MM3 Mean Platelet Volume 9.2 FL Neutrophils (%) (Auto) 68.5 % Lymphocytes (%) (Auto) 22.8 % Monocytes (%) (Auto) 7.5 % Eosinophils (%) (Auto) 0.6 % Basophils (%) (Auto) 0.6 % Neutrophils # (Auto) 11.3 TH/MM3 Lymphocytes # (Auto) 3.8 TH/MM3 Monocytes # (Auto) 1.2 TH/MM3 Eosinophils # (Auto) 0.1 TH/MM3 Basophils # (Auto) 0.1 TH/MM3 CBC Comment DIFF FINAL Differential Comment Prothrombin Time 10.4 SEC Prothromb Time International Ratio 1.0 RATIO Activated Partial Thromboplast Time 27.2 SEC Blood Urea Nitrogen 18 MG/DL Creatinine 0.98 MG/DL Random Glucose 117 MG/DL Total Protein 8.0 GM/DL Albumin 3.6 GM/DL Calcium Level 9.1 MG/DL Magnesium Level 2.1 MG/DL Alkaline Phosphatase 91 U/L Aspartate Amino Transf (AST/SGOT) 23 U/L Alanine Aminotransferase (ALT/SGPT) 34 U/L Total Bilirubin 0.3 MG/DL Sodium Level 137 MEQ/L Potassium Level 4.2 MEQ/L Chloride Level 103 MEQ/L Carbon Dioxide Level 27.9 MEQ/L Anion Gap 6 MEQ/L Estimat Glomerular Filtration Rate 59 ML/MIN Total Creatine Kinase 87 U/L Troponin I 0.45 NG/ML Lipase 102 U/L MDM Medical Decision Making Medical Screen Exam Complete: Yes Emergency Medical Condition: Yes Differential Diagnosis ACS, TN, pancreatitis, GERD Narrative Course Patient 52-year-old female history of ablation for atrial fibrillation on Eliquis, last catheterization in [place] in March 2017, elevated troponin here in the emergency department, given aspirin, nitroglycerin, elevated blood pressure, she has been elevated in the past, multiple catheterizations here, unsure the significance of her troponin but at this time will be recommended for observation status for cardiology consultation. Think that her symptoms may be due from GERD, consider cardiomyopathy as a cause of her elevated troponins as they are always somewhat elevated, still her symptoms shakila with nitroglycerin which could be cause for concern of coronary disease. Discussed with Dr. De who will admit. I do not think that her symptoms are strong enough at this time to warrant heparinization especially with Celestina on board. Diagnosis Primary Impression: Elevated troponin Additional Impression: Chest pain Admitting Information Admitting Physician Requests: Admit Condition: Stable Iggy Major MD Jul 03, 2017 00:12
[2017-07-03] MEDS ORDERED: NITROGLYCERIN 0.4 MG SL 25 TABS/BTL SL ONE (00:15)
[2017-07-03] MEDS ORDERED: NITROGLYCERIN 2% OINT 1 GM PACKET TOPICAL ONE (00:15)
[2017-07-03] MEDS ORDERED: BISACODYL 10 MG SUPP RECTAL PRN (00:45)
[2017-07-03] MEDS ORDERED: ONDANSETRON HCL 4 MG/2 ML VIAL IVP PRN (00:45)
[2017-07-03] MEDS ORDERED: LACTULOSE SYRUP 20 GM/30 ML CUP PO PRN (00:45)
[2017-07-03] MEDS ORDERED: MAGNESIUM HYDROXIDE SUSP 30 ML CUP PO PRN (00:45)
[2017-07-03] MEDS ORDERED: ACETAMINOPHEN 325 MG TAB PO PRN (00:45)
[2017-07-03] MEDS ORDERED: NALOXONE HCL 0.4 MG/ML AMP IV PUSH PRN (00:45)
[2017-07-03] MEDS ORDERED: SODIUM CHLORIDE 0.9% FLUSH 10 ML FLUSH IV FLUSH PRN (00:45)
[2017-07-03] MEDS ORDERED: ENOXAPARIN SODIUM 40 MG/0.4 ML SYRINGE SQ SCH (00:45)
[2017-07-03] MEDS ORDERED: SENNOSIDES 8.6 MG TAB PO PRN (00:45)
[2017-07-03] MEDS ORDERED: MORPHINE SULFATE 2 MG/ML INJ IV PUSH PRN (01:15)
--- NOTE | 2017-07-03 01:27 | HHI.HP ---
[facility] No Primary Care Physician Admission Diagnosis Chest Pain Diagnoses: Travel History International Travel<30 Days: No Contact w/Intl Traveler <30 Da: No Traveled to Known Affected Are: No History of Present Illness 52-year-old female with a past medical history significant for atrial fibrillation status post ablation, anticoagulated on [place], cardiomyopathy, hypertension and hyperlipidemia presents to the emergency department for evaluation of chest burning. The patient reports that for the past 5 days she has had what feels like indigestion and increased burping along with light colored stools. She states that today the pain acutely worsened and she describes it as a burning or stabbing coming from her xiphoid process radiating up towards her neck into her right chest. She was seen in urgent care where she was given sucralfate and omeprazole without relief. Patient's pain persists despite treatment with nitroglycerin. Patient denies associated diaphoresis/shortness of breath. Denies nausea/vomiting/diarrhea. No lower extremity edema. 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 Hyperlipidemia Hypertension Past Surgical History Ablation 04/16 Cardiac catheterization 04/16, no stents placed Right knee replacement Bunion removal Reported Medications Reported Meds & Active Scripts Active Lopressor (Metoprolol Tartrate) 50 Mg Tab 50 Mg PO BID Reported Vitamin D3 (Cholecalciferol) 3,000 Unit Tab 3,000 Units PO DAILY Omeprazole 40 Mg Cap 40 Mg DAILY Aspirin Low Dose (Aspirin) 81 Mg Chew 81 Mg PO DAILY Diltiazem (Diltiazem HCl) 120 Mg Tab 120 Mg PO DAILY Eliquis (Apixaban) 5 Mg Tab 5 Mg PO BID Sucralfate 1 Gram Tab 1 Gm PO QID on empty stomach Crestor (Rosuvastatin Calcium) 20 Mg Tab 20 Mg PO DAILY Allergies: Coded Allergies: No Known Allergies (Unverified Allergy, Unknown, 07/03/17) Family History Father with CAD Social History Denies alcohol, tobacco and illicit drugs Physical Exam Vital Signs Vital Signs Date Time Temp Pulse Resp B/P (MAP) Pulse Ox O2 Delivery O2 Flow Rate FiO2 07/03/17 00:35 54 16 171/85 (113) 95 07/02/17 23:13 98 Room Air 07/02/17 23:13 98 Room Air 07/02/17 23:13 52 18 190/91 (124) 99 Room Air 07/02/17 22:37 97.8 62 18 210/110 (143) 98 Room Air Physical Exam GENERAL: female sitting up in bed SKIN: No rashes, ecchymoses or lesions. Cool and dry. HEAD: Atraumatic. Normocephalic. No temporal or scalp tenderness. EYES: Pupils equal round and reactive. Extraocular motions intact. No scleral icterus. No injection or drainage. ENT: Nose without bleeding, purulent drainage or septal hematoma. Throat without erythema, tonsillar hypertrophy or exudate. Uvula midline. Airway patent. NECK: Trachea midline. No JVD or lymphadenopathy. Supple, nontender, no meningeal signs. CARDIOVASCULAR: Regular rate and rhythm without murmurs, gallops, or rubs. RESPIRATORY: Clear to auscultation. Breath sounds equal bilaterally. No wheezes , rales, or rhonchi. GASTROINTESTINAL: Abdomen soft, non-tender, nondistended. No hepato-splenomegaly , or palpable masses. No guarding. MUSCULOSKELETAL: Extremities without clubbing, cyanosis, or edema. No joint tenderness, effusion, or edema noted. No calf tenderness. NEUROLOGICAL: Awake and alert. Cranial nerves II through XII intact. Motor and sensory grossly within normal limits. Normal speech. Laboratory Laboratory Tests Test 07/02/17 23:10 White Blood Count 16.5 Red Blood Count 4.62 Hemoglobin 13.7 Hematocrit 41.0 Mean Corpuscular Volume 88.6 Mean Corpuscular Hemoglobin 29.7 Mean Corpuscular Hemoglobin Concent 33.5 Red Cell Distribution Width 14.0 Platelet Count 173 Mean Platelet Volume 9.2 Neutrophils (%) (Auto) 68.5 Lymphocytes (%) (Auto) 22.8 Monocytes (%) (Auto) 7.5 Eosinophils (%) (Auto) 0.6 Basophils (%) (Auto) 0.6 Neutrophils # (Auto) 11.3 Lymphocytes # (Auto) 3.8 Monocytes # (Auto) 1.2 Eosinophils # (Auto) 0.1 Basophils # (Auto) 0.1 CBC Comment DIFF FINAL Differential Comment Prothrombin Time 10.4 Prothromb Time International Ratio 1.0 Activated Partial Thromboplast Time 27.2 Blood Urea Nitrogen 18 Creatinine 0.98 Random Glucose 117 Total Protein 8.0 Albumin 3.6 Calcium Level 9.1 Magnesium Level 2.1 Alkaline Phosphatase 91 Aspartate Amino Transf (AST/SGOT) 23 Alanine Aminotransferase (ALT/SGPT) 34 Total Bilirubin 0.3 Sodium Level 137 Potassium Level 4.2 Chloride Level 103 Carbon Dioxide Level 27.9 Anion Gap 6 Estimat Glomerular Filtration Rate 59 Total Creatine Kinase 87 Troponin I 0.45 Lipase 102 Result Diagram: 07/02/17230907/02/172309 Caprini VTE Risk Assessment Caprini VTE Risk Assessment: No/Low Risk (score <= 1) Caprini Risk Assessment Model Point Value = 1 Point Value = 2 Point Value = 3 Point Value = 5 Age 41-60 Minor surgery BMI > 25 kg/m2 Swollen legs Varicose veins or History of unexplained or recurrent spontaneous Oral contraceptives or hormone replacement Sepsis (< 1 month) Serious lung disease, including pneumonia (< 1 month) Abnormal pulmonary function Acute myocardial infarction Congestive heart failure (< 1 month) History of inflammatory bowel disease Medical patient at bed rest Age 61-74 Arthroscopic surgery Major open surgery (> 45 min) Laparoscopic surgery (> 45 min) Malignancy Confined to bed (> 72 hours) Immobilizing plaster cast Central venous access Age >= 75 History of VTE Family history of VTE Factor V Leiden Prothrombin [id number] Lupus anticoagulant Anticardiolipin antibodies Elevated serum homocysteine Heparin-induced thrombocytopenia Other congenital or acquired thrombophilia Stroke (< 1 month) Elective arthroplasty Hip, pelvis, or leg fracture Acute spinal cord injury (< 1 month) Prophylaxis Regimen Total Risk Factor Score Risk Level Prophylaxis Regimen 0-1 Low Early ambulation 2 Moderate Order ONE of the following: *Sequential Compression Device (SCD) *Heparin 5000 units SQ BID 3-4 Higher Order ONE of the following medications: *Heparin 5000 units SQ TID *Enoxaparin/Lovenox 40 mg SQ daily (WT < 150 kg, CrCl > 30 mL/min) *Enoxaparin/Lovenox 30 mg SQ daily (WT < 150 kg, CrCl > 10-29 mL/min) *Enoxaparin/Lovenox 30 mg SQ BID (WT < 150 kg, CrCl > 30 mL/min) AND/OR *Sequential Compression Device (SCD) 5 or more Highest Order ONE of the following medications: *Heparin 5000 units SQ TID (Preferred with Epidurals) *Enoxaparin/Lovenox 40 mg SQ daily (WT < 150 kg, CrCl > 30 mL/min) *Enoxaparin/Lovenox 30 mg SQ daily (WT < 150 kg, CrCl > 10-29 mL/min) *Enoxaparin/Lovenox 30 mg SQ BID (WT < 150 kg, CrCl > 30 mL/min) AND *Sequential Compression Device (SCD) Assessment and Plan Assessment and Plan Assessment/plan: 1. Chest pain/elevated troponin EKG significant for T-wave inversions in aVR/aVL and V1/V2, normal sinus rhythm , no ST segment elevations or depressions, personally reviewed Troponin 0.45, patient with history of elevated troponins most recently 0.31 a year ago Chest pain may be related to GERD ACS rule out pending; serial troponins/EKGs Morphine for pain Given patient's history of cardiomyopathy and elevated troponin, cardiology consulted, appreciate recommendations If troponin continues to elevate, will start heparin drip 2. History of A. fib, status post ablation Normal sinus rhythm at this time Continue home medications including anticoagulation with Eliquis 3. Hypertension/hyperlipidemia Continue home medications FEN Heart healthy diet Electrolytes: monitor and replete prn Heparin Esperanza De MD Jul 03, 2017 01:27
[2017-07-03] MEDS ORDERED: NITROGLYCERIN 0.3 MG SL 100 TABS/BTL SL PRN (04:00)
[2017-07-03] MEDS ORDERED: MORPHINE SULFATE 4 MG/ML INJ IV PUSH PRN (04:15)
[2017-07-03 05:16] LABS: TROPONIN I 0.61 NG/ML (0.02-0.05)
[2017-07-03] MEDS ORDERED: HEPARIN SODIUM - IV 10,000 UNITS/10 ML VIAL IV PUSH ONE (06:00)
[2017-07-03] MEDS ORDERED: HEPARIN-D5W 25,000 U/250 ML 250 ML IV PRN (06:00)
[2017-07-03 07:31] LABS: HEMATOCRIT 40.1 % (35.0-46.0); HEMOGLOBIN 13.3 GM/DL (11.6-15.3); MEAN CELL VOLUME 90.3 FL (80.0-100.0); MEAN CORPUSCULAR HGB CONC 33.2 % (32.0-36.0); MEAN PLATELET VOLUME 8.3 FL (7.0-11.0); PLATELET COUNT 138 TH/MM3 (150-450); RED BLOOD COUNT 4.44 MIL/MM3 (4.00-5.30); WHITE BLOOD COUNT 13.5 TH/MM3 (4.0-11.0)
[2017-07-03] MEDS: SUCRALFATE 1 GM TAB PO SCH ×2 (08:44→11:40)
[2017-07-03] MEDS ORDERED: APIXABAN 5 MG TABLET PO SCH (09:00)
[2017-07-03] MEDS ORDERED: ATORVASTATIN 20 MG TAB PO SCH (09:00)
[2017-07-03] MEDS ORDERED: ASPIRIN 81 MG CHEW TAB PO SCH (09:00)
[2017-07-03] MEDS ORDERED: SODIUM CHLORIDE 0.9% FLUSH 10 ML FLUSH IV FLUSH SCH (09:00)
[2017-07-03] MEDS ORDERED: PANTOPRAZOLE SOD 40 MG DELAYED RELEASE TAB PO SCH (09:00)
[2017-07-03] MEDS ORDERED: DILTIAZEM-CD 120 MG CAP ER PO SCH (09:00)
[2017-07-03] MEDS ORDERED: METOPROLOL TARTRATE 50 MG TAB PO SCH (09:00)
[2017-07-03 09:17] LABS: INTERNATIONAL NORMALIZED RATIO 1.1 RATIO; PROTHROMBIN TIME - PATIENT 11.4 SEC (9.8-11.6)
[2017-07-03] MEDS ORDERED: HEPARIN SODIUM - IV 10,000 UNITS/10 ML VIAL IV PUSH PRN ×2 (12:00)
--- NOTE | 2017-07-03 12:43 | MB ---
cc: FATUMA PRIEST MD DATE OF CONSULTATION: 07/03/2017. REASON FOR CONSULTATION: . HISTORY OF PRESENT ILLNESS: The patient is a very pleasant 52-year-old woman who has a history of atrial fibrillation status post ablation this past March. She also has a history of an abnormal EKG and she has had several cardiac catheterizations which were normal, one done here about two years ago by Dr. Alfredo Jiménez and another one apparently done in [place] this past March, which was also normal per the patient. She presents with epigastric discomfort, worse with eating. Her initial troponins were positive, and thus I was consulted. She is currently asymptomatic and denying any residual epigastric or chest discomfort. No shortness of breath, lightheadedness, or dizziness. PAST MEDICAL HISTORY: 1. Atrial fibrillation status post ablation. 2. Normal coronary arteries by two different cardiac catheterizations, most recently 03/2017 (per the patient). 3. Hypertension. 4. Hyperlipidemia. CURRENT MEDICATIONS: 1. Subcutaneous heparin. 2. Aspirin 81 milligrams daily. 3. Lopressor 50 milligrams twice a day. 4. Cardizem 120 milligrams daily. 5. Protonix 40 milligrams daily. 6. Lipitor 40 milligrams daily. 7. Carafate. ALLERGIES: NO KNOWN DRUG ALLERGIES. PHYSICAL EXAMINATION: VITAL SIGNS: Afebrile. Heart rate 59. Respiratory rate 60. Blood pressure 108/64, satting 95% on room air. GENERAL: A pleasant well-appearing woman in no distress. NECK: No jugular venous distention. LUNGS: Clear to auscultation bilaterally. CARDIOVASCULAR: Regular rate and rhythm. No murmurs appreciated. ABDOMEN: Benign. EXTREMITIES: No edema. LABORATORY DATA: Troponin is notable for a slight increase from 0.16 up to 0.61. INR is 1.1. White count 13.5 down from 16.5, hematocrit 40.1, platelets 138. IMAGING STUDIES: Chest x-ray showed no acute disease. EKGS: EKG shows sinus rhythm with nonspecific anterolateral T-wave changes. IMPRESSION: Elevated troponin: The patient's elevated troponin is nonspecific and given that she has had apparently two normal cardiac catheterizations, most recently only three months ago, I do not believe she requires any further coronary/ischemic workup at this time. Her white count is elevated and her systems are pretty convincingly GI related so that may be the cause of her current presentation. Given her extensive workup in the past, she would be cleared for any GI procedure from a cardiac standpoint. Given her extensive previously normal cardiac workup, I will be available on an as-needed basis but I have asked for them to obtain the [place] cardiac catheterization for our records. Please call with any further questions. Thank you again for the opportunity to participate in this patient's care. MD EILEEN Cabrera/VANCE /10:21 AM /12:19 PM
[2017-07-03] MEDS ORDERED: OMEP40CA2 PO (13:24)
[2017-07-03 14:02] LABS: TROPONIN I 1.64 NG/ML (0.02-0.05)
--- NOTE | 2017-07-03 15:43 | EKG ---
Date Performed: 07/03/2017 Time Performed: 05:19:46 PTAGE: 52 years EKG: Sinus bradycardia Left ventricular hypertrophy ST-T change is probably due to LVH Abnormal ECG Compared to PREVIOUS TRACING , this tracing is of improved quality. Otherwise, no change. PREVIOUS TR ACIN07/02/2017 23.00 DOCTOR: Percy Rice Interpretating Date/Time 07/03/2017 15:42:43
--- NOTE | 2017-07-03 15:43 | EKG ---
Date Performed: 07/02/2017 Time Performed: 23:00:43 PTAGE: 52 years EKG: SINUS BRADYCARDIA POSSIBLE LEFT ATRIAL ENLARGEMENT LEFT VENTRICULAR HYPERTROPHY AND ST-T CH [place] ABNORMAL ECG Artifact in V3 makes that lead not interpretable. Compared to PREVIOUS TRACING , T-wave changes anterolaterally have improved slightly, otherwise no si gnificant change. PREVIOUS TRACIN07/02/2016 03.53 DOCTOR: Percy Rice Interpretating Date/Time 07/03/2017 15:41:43
--- NOTE | 2017-07-04 13:23 | EKG ---
Date Performed: 07/03/2017 Time Performed: 11:08:14 PTAGE: 52 years EKG: Sinus bradycardia Prominent voltage Abnormal ECG NO PREVIOUS TRACING DOCTOR: Percy Rice Interpretating Date/Time 07/04/2017 13:22:26
== END 2017-07-03 14:54 | disposition home or self-care (01) ==
LOC: NEPE 22:35 → NEDA 07-03 00:45 → INTOOBSV 07-03 00:45 → UNDOADMOB 07-03 00:45 → NEDA 07-03 02:20 → HCVI 07-03 02:20 → UNDODISOB 07-03 14:54
PROVIDERS: ADMIT Internal Medicine; ATTEND Internal Medicine
DX: R07.9 Chest pain, unspecified (principal); R74.8 Abnormal levels of other serum enzymes; I25.10 Atherosclerotic heart disease of native coronary artery without angina pectoris; I48.91 Unspecified atrial fibrillation; I10 Essential (primary) hypertension; E78.5 Hyperlipidemia, unspecified; I42.9 Cardiomyopathy, unspecified
CPT/HCPCS: 71045; 80053; 80307; 82550; 83690; 83735; 84484; 85025; 85027; 85610; 85730; 93005; 96365; 96375; 99285; G0378; J1644; J2270; J2405

== ENCOUNTER 2017-08-13 02:09 | Inpatient (IN) | payer OTHER ==
[2017-08-13] VITALS (15 sets, daily range): BP systolic 100–173; BP diastolic 59–111; PULSE 49–145; RESP 11–20; TEMP 97.4–98; O2SAT 94–100
[~2017-08-13] VITALS: Ht 170.2 cm; Wt 104.3 kg
[~2017-08-13 02:09] MED LIST changes: +APIX5TAB PO; -ASPI-183 PO; +ASPI81CH6 PO; +DILT120T PO; +OMEP40CA2 PO; +SUCR1TAB PO; +VITA3000 PO
[2017-08-13] MEDS ORDERED: HYDR-3516 PO (02:37)
[2017-08-13] MEDS ORDERED: PANT40TA3 PO (02:37)
[2017-08-13] MEDS ORDERED: ISOS10TA3 PO (02:37)
[2017-08-13] MEDS ORDERED: SODIUM CHLORIDE 0.9% FLUSH 10 ML FLUSH IV FLUSH PRN ×2 (02:45→04:30)
[2017-08-13] MEDS ORDERED: DILTIAZEM HCL 50 MG/10 ML VIAL IV ONE ×2 (02:45→03:00)
[2017-08-13] MEDS ORDERED: DILTIAZEM HCL 25 MG/5 ML VIAL IV ONE ×3 (02:45→03:45)
[2017-08-13] MEDS ORDERED: SODIUM CHLORIDE 0.9% FLUSH 10 ML FLUSH IVF PRN (02:45)
[2017-08-13] MEDS: NITROGLYCERIN 0.4 MG SL 25 TABS/BTL SL SCH ×3 (02:45→03:02)
[2017-08-13 02:48] LABS: AUTOMATED NEUTROPHIL # 15.1 TH/MM3 (1.8-7.7); BASOPHIL # 0.1 TH/MM3 (0-0.2); BASOPHIL % 0.7 % (0.0-2.0); EOSINOPHIL # 0.1 TH/MM3 (0-0.4); EOSINOPHIL % 0.5 % (0.0-4.0); HEMATOCRIT 39.6 % (35.0-46.0); HEMOGLOBIN 13.3 GM/DL (11.6-15.3); LYMPH % 18.7 % (9.0-44.0); LYMPHOCYTE # 3.8 TH/MM3 (1.0-4.8); MEAN CORPUSCULAR HEMOGLOBIN 29.8 PG (27.0-34.0); MEAN CORPUSCULAR HGB CONC 33.5 % (32.0-36.0); MEAN PLATELET VOLUME 8.4 FL (7.0-11.0); MONO % 5.6 % (0.0-8.0); MONOCYTE # 1.1 TH/MM3 (0-0.9); NEUT % 74.5 % (16.0-70.0); PLATELET COUNT 158 TH/MM3 (150-450); RED BLOOD COUNT 4.45 MIL/MM3 (4.00-5.30); RED CELL DISTRIBUTION WIDTH 13.7 % (11.6-17.2); WHITE BLOOD COUNT 20.2 TH/MM3 (4.0-11.0)
[2017-08-13 03:01] LABS: INTERNATIONAL NORMALIZED RATIO 1.1 RATIO; PROTHROMBIN TIME - PATIENT 10.7 SEC (9.8-11.6)
[2017-08-13 03:04] LABS: BICARBONATE 29.1 MEQ/L (21.0-32.0); BLOOD UREA NITROGEN 18 MG/DL (7-18); CHLORIDE 101 MEQ/L (98-107); CREATININE 1.17 MG/DL (0.50-1.00); GLOMERULAR FILTRATION RATE 48 ML/MIN (>89); GLUCOSE,RANDOM 153 MG/DL (74-106); MAGNESIUM 1.9 MG/DL (1.5-2.5); SODIUM (NA) 138 MEQ/L (136-145)
[2017-08-13 03:08] LABS: TROPONIN I 0.33 NG/ML (0.02-0.05)
[2017-08-13] MEDS ORDERED: DILTIAZEM INJ 125 MG in SODIUM CHLORIDE 0.9% INJ 100 ML IV PRN (03:30)
[2017-08-13] MEDS ORDERED: ASPIRIN 325 MG TAB PO ONE (03:30)
[2017-08-13] MEDS ORDERED: MORPHINE SULFATE 4 MG/ML INJ IV PUSH ONE ×3 (03:30→07:15)
[2017-08-13] MEDS ORDERED: ONDANSETRON HCL 4 MG/2 ML VIAL IV PUSH ONE (03:30)
--- NOTE | 2017-08-13 03:33 | RADRPT ---
EXAM DATE/TIME: 08/13/2017 02:51 [facility] COMPARISON: CHEST SINGLE AP, July 02, 2017, 22:51. INDICATIONS : Chest pain about 5 hours ago. MEDICAL HISTORY : HTN, A-fib, Cardiomyopathy. SURGICAL HISTORY : Heart ablasion. ENCOUNTER: Initial ACUITY: 1 day PAIN SCORE: 10/10 LOCATION: Bilateral chest middle of chest FINDINGS: A single view of the chest demonstrates the lungs to be symmetrically aerated without evidence of mas s, infiltrate or effusion. The cardiomediastinal contours are unremarkable. Osseous structures are intact. CONCLUSION: No acute cardiopulmonary process. Jase Edmonds MD on August 13, 2017 at 3:32 Board Certified Radiologist. This report was verified electronically.
--- NOTE | 2017-08-13 03:42 | PD ---
HPI Chief Complaint: Cardiac Complaint Time Seen by Provider: 02:34 Travel History International Travel<30 days: No Contact w/Intl Traveler<30days: No Traveled to known affect area: No History of Present Illness HPI 52-year-old female arrives with chest pain and palpitations along with shortness of breath. She reports a history of atrial fibrillation. She reports symptoms started about 2 hours prior to ER arrival shortly after ingesting metoprolol. She reports compliance with Cardizem. She reports compliance with Eliquis. Timing intermittent. Severity moderate. She reports being in her normal state of health over the past few days with no change in medication or recent illness. She is unaware of any potential cause for the symptoms today. She does express concern that it could be related to weight gain. PFSH Past Medical History Arthritis: Yes (osteoarthritis R knee) Heart Rhythm Problems: Yes (a. fib.) Cardiovascular Problems: Yes High Cholesterol: Yes Chest Pain: Yes (last occurence 07/03/17) Diminished Hearing: No Genitourinary: Yes Hypertension: Yes Sleep Apnea: Yes Ulcer: No Tetanus Vaccination: Unknown Influenza Vaccination: Yes ?: Not Menopausal: Yes Past Surgical History Cardiac Surgery: Yes (x2 ablations for A. fib.) Coronary Artery Bypass Graft: Yes Oral Surgery: Yes (wisdom tooth removal 2007) Other Surgery: Yes (R knee replacement, R bunion, ablation x2) Social History Alcohol Use: No Tobacco Use: No Substance Use: No Allergies-Medications (Allergen,Severity, Reaction): Coded Allergies: No Known Allergies (Unverified Allergy, Unknown, 07/03/17) Reported Meds & Prescriptions Reported Meds & Active Scripts Active Lopressor (Metoprolol Tartrate) 50 Mg Tab 50 Mg PO BID Reported Pantoprazole (Pantoprazole Sodium) 40 Mg Tab 40 Mg PO BID Hydrocodone-Acetaminophen 5-325 mg Tab 1 Tab PO Q8HR PRN Isosorbide Mononitrate 10 Mg Tab 30 Mg PO DAILY Take 2 doses 7 hours apart. Vitamin D3 (Cholecalciferol) 3,000 Unit Tab 3,000 Units PO DAILY Aspirin Low Dose (Aspirin) 81 Mg Chew 81 Mg PO DAILY Diltiazem (Diltiazem HCl) 120 Mg Tab 120 Mg PO DAILY Eliquis (Apixaban) 5 Mg Tab 5 Mg PO BID Sucralfate 1 Gram Tab 1 Gm PO QID on empty stomach Crestor (Rosuvastatin Calcium) 20 Mg Tab 10 Mg PO MON,WED,FRI Review of Systems Except as stated in HPI: all other systems reviewed are Neg General / Constitutional: No: Fever Physical Exam Narrative GENERAL: 52-year-old female pleasant well-nourished well-developed Vital Signs Date Time Temp Pulse Resp B/P (MAP) Pulse Ox O2 Delivery O2 Flow Rate FiO2 08/13/17 03:30 120 18 118/79 (92) 94 Room Air 08/13/17 03:00 128 20 135/69 (91) 95 Room Air 08/13/17 02:27 145 20 162/105 (124) 98 Room Air 08/13/17 02:15 106 20 173/111 (131) 97 SKIN: Warm and dry. HEAD: Atraumatic. Normocephalic. EYES: Pupils equal and round. No scleral icterus. No injection or drainage. ENT: No nasal bleeding or discharge. Mucous membranes pink and moist. NECK: Trachea midline. No JVD. CARDIOVASCULAR: Irregular. Tachycardia. . RESPIRATORY: No accessory muscle use. Clear to auscultation. Breath sounds equal bilaterally. GASTROINTESTINAL: Abdomen soft, non-tender, nondistended. Hepatic and splenic margins not palpable. MUSCULOSKELETAL: Extremities without clubbing, cyanosis, or edema. No obvious deformities. NEUROLOGICAL: Awake and alert. No obvious cranial nerve deficits. Motor grossly within normal limits. Five out of 5 muscle strength in the arms and legs. Normal speech. PSYCHIATRIC: Appropriate mood and affect; insight and judgment normal. Data Data Last Documented VS Vital Signs Date Time Temp Pulse Resp B/P (MAP) Pulse Ox O2 Delivery O2 Flow Rate FiO2 08/13/17 03:53 108 118/79 08/13/17 03:30 97.4 18 94 Room Air Orders Orders Electrocardiogram (08/13/17 ) Electrocardiogram (08/13/17 02:34) Basic Metabolic Panel (Bmp) (08/13/17 02:34) Ckmb (Isoenzyme) Profile (08/13/17 02:34) Complete Blood Count With Diff (08/13/17 02:34) Magnesium (Mg) (08/13/17 02:34) Prothrombin Time / Inr (Pt) (08/13/17 02:34) Act Partial Throm Time (Ptt) (08/13/17 02:34) Troponin I (08/13/17 02:34) Ecg Monitoring (08/13/17 02:34) Iv Access Insert/Monitor (08/13/17 02:34) Oximetry (08/13/17 02:34) Oxygen Administration (08/13/17 02:34) Sodium Chloride 0.9% Flush (Ns Flush) (08/13/17 02:45) Nitroglycerin Sl (Nitrostat Sl) (08/13/17 02:45) Ecg Monitoring (08/13/17 02:34) Blood Pressure (08/13/17 02:34) Iv Access Insert/Monitor (08/13/17 02:34) Oximetry (08/13/17 02:34) Vital Signs (08/13/17 02:34) Sodium Chloride 0.9% Flush (Ns Flush) (08/13/17 02:45) Chest, Single Ap (08/13/17 ) Diltiazem Inj (Cardizem Inj) (08/13/17 02:45) Diltiazem Inj (Cardizem Inj) (08/13/17 02:45) Diltiazem Inj (Cardizem Inj) (08/13/17 03:00) CKMB (08/13/17 02:30) CKMB% (08/13/17 02:30) Morphine Inj (Morphine Inj) (08/13/17 03:30) Ondansetron Inj (Zofran Inj) (08/13/17 03:30) Diltiazem Inj (Cardizem Inj) (08/13/17 03:30) Aspirin (Aspirin) (08/13/17 03:30) Diltiazem Inj (Cardizem Inj) (08/13/17 03:45) Urinalysis - C+S If Indicated (08/13/17 03:45) Influenzae A/B Antigen (08/13/17 03:45) Labs Laboratory Tests Test 08/13/17 02:30 White Blood Count 20.2 TH/MM3 Red Blood Count 4.45 MIL/MM3 Hemoglobin 13.3 GM/DL Hematocrit 39.6 % Mean Corpuscular Volume 89.0 FL Mean Corpuscular Hemoglobin 29.8 PG Mean Corpuscular Hemoglobin Concent 33.5 % Red Cell Distribution Width 13.7 % Platelet Count 158 TH/MM3 Mean Platelet Volume 8.4 FL Neutrophils (%) (Auto) 74.5 % Lymphocytes (%) (Auto) 18.7 % Monocytes (%) (Auto) 5.6 % Eosinophils (%) (Auto) 0.5 % Basophils (%) (Auto) 0.7 % Neutrophils # (Auto) 15.1 TH/MM3 Lymphocytes # (Auto) 3.8 TH/MM3 Monocytes # (Auto) 1.1 TH/MM3 Eosinophils # (Auto) 0.1 TH/MM3 Basophils # (Auto) 0.1 TH/MM3 CBC Comment DIFF FINAL Differential Comment Prothrombin Time 10.7 SEC Prothromb Time International Ratio 1.1 RATIO Activated Partial Thromboplast Time 26.6 SEC Blood Urea Nitrogen 18 MG/DL Creatinine 1.17 MG/DL Random Glucose 153 MG/DL Calcium Level 9.0 MG/DL Magnesium Level 1.9 MG/DL Sodium Level 138 MEQ/L Potassium Level 3.6 MEQ/L Chloride Level 101 MEQ/L Carbon Dioxide Level 29.1 MEQ/L Anion Gap 8 MEQ/L Estimat Glomerular Filtration Rate 48 ML/MIN Total Creatine Kinase 114 U/L Creatine Kinase MB 2.5 NG/ML Troponin I 0.33 NG/ML [facility] Medical Decision Making Medical Screen Exam Complete: Yes Emergency Medical Condition: Yes Medical Record Reviewed: Yes Differential Diagnosis NSTEMI, unstable angina, coronary vasospasm, PE, PTX, aortic dissection, pericarditis, myocarditis, endocarditis, PNA, esophageal disease, aneurysm, musculoskeletal etiologies, anxiety, cocaine/sympathomimetic abuse Narrative Course EKG reveals A. fib with RVR at a rate of about 140 Repeat EKG reveals A. fib with RVR at a rate about 101 CBC & BMP Diagram 08/13/17 02:30 Calcium Level 9.0, Magnesium Level 1.9 Troponin 0 0.33 Troponin has been elevated on numerous prior measurements here and there is a cardiology consultation from about 1 month ago which notes clean coronary catheterization from May 2015. In the setting occlusive coronary disease is considered less likely. Rate control with diltiazem drip. Admission to the hospitalist service. Discussed with Dr. De. Diagnosis Primary Impression: Atrial fibrillation with RVR Additional Impressions: Chest pain Qualified Codes: R07.9 - Chest pain, unspecified Elevated troponin Admitting Information Admitting Physician Requests: Admit Yuniel Ross MD Aug 13, 2017 03:42
[2017-08-13] MEDS ORDERED: ACETAMINOPHEN 325 MG TAB PO PRN (04:30)
[2017-08-13] MEDS ORDERED: ONDANSETRON HCL 4 MG/2 ML VIAL IVP PRN (04:30)
[2017-08-13] MEDS ORDERED: NALOXONE HCL 0.4 MG/ML AMP IV PUSH PRN (04:30)
[2017-08-13 05:01] LABS: BACTERIA, URINE RARE /hpf; BILIRUBIN, URINE NEG (NEG); BLOOD, URINE NEG (NEG); GLUCOSE,URINE NEG (NEG); KETONE, URINE NEG (NEG); NITRITE,URINE NEG (NEG); PH, URINE 6.5 (5.0-8.5); RENAL EPITHELIAL CELLS 1 /hpf; SQUAMOUS EPITHELIAL CELL URINE 1 /hpf (0-5); TRANSITIONAL EPI CELLS, URINE <1 /hpf; URINE COLOR YELLOW (YELLW/STRAW); URINE LEUKOCYTE ESTERASE LARGE (NEG)
[2017-08-13] MEDS: cefTRIAXone INJ 1,000 MG in SODIUM CHLORIDE 0.9% INJ 100 ML IV SCH (09:31)
[2017-08-13] MEDS: SODIUM CHLOR 0.9% 1000 ML INJ 1,000 ML IV SCH ×2 (09:31→22:24)
[2017-08-13] MEDS: SODIUM CHLORIDE 0.9% FLUSH 10 ML FLUSH IV FLUSH SCH ×2 (09:31→22:20)
[2017-08-13] MEDS ORDERED: MORPHINE SULFATE 2 MG/ML INJ IV PUSH PRN (10:00)
[2017-08-13 12:20] LABS: TROPONIN I 0.65 NG/ML (0.02-0.05)
--- NOTE | 2017-08-13 12:58 | HHI.HP ---
[facility] Admission Diagnosis AFIB RVR; Elevated Troponin Diagnoses: Chief Complaint: Palpitation and shortness of breathing Travel History International Travel<30 Days: No Contact w/Intl Traveler <30 Da: No Traveled to Known Affected Are: No History of Present Illness This is a 52-year-old female history of atrial fibrillation status post ablation who presented with palpitations and chest pain. Patient stated that when the symptoms happen she is usually in atrial fibrillation with a fast heart rate. She stated that she checked her heart rate at home it was in the 140s so she went to the hospital. Patient was found to be in atrial fibrillation with RVR. Patient stated that when her heart rate goes in the 150s test when she gets chest pain. Patient was bolused with Cardizem IV for a total of 50 mg in the emergency department was then put on Cardizem drip. This morning patient went to asystole for about 6 seconds with symptoms of dizziness. Then she went into sinus rhythm with bradycardia in the 40s. During my interview with the patient she was running a heart rate in the 50s still in sinus rhythm. Patient stated that this happens a lot where she is put on a Cardizem drip that she goes in a sinus rhythm and her blood pressure goes very low. At the moment she says she feels fatigued but she feels a lot better. She denies any palpitation, shortness of breathing, chest pain. Patient stated that she is very compliant with her medication. She said that she takes her metoprolol and Cardizem. Patient was admitted to the hospital about 1 month ago in which she was evaluated by Dr. Ross triage specialist who stated that if patient goes into RVR she may need another ablation. I spoke to Dr. Batista triage specialist over the phone in regards to the consult since patient went to asystole. All other review of system reviewed and negative. Past Family Social History Past Medical History GERD Atrial fibrillation Hypertension Sleep apnea Hypertrophic cardiomyopathy Past Surgical History Ablation Right knee replacement Reported Medications Reported Meds & Active Scripts Active Lopressor (Metoprolol Tartrate) 50 Mg Tab 50 Mg PO BID Reported Pantoprazole (Pantoprazole Sodium) 40 Mg Tab 40 Mg PO BID Hydrocodone-Acetaminophen 5-325 mg Tab 1 Tab PO Q8HR PRN Isosorbide Mononitrate 10 Mg Tab 30 Mg PO DAILY Take 2 doses 7 hours apart. Vitamin D3 (Cholecalciferol) 3,000 Unit Tab 3,000 Units PO DAILY Aspirin Low Dose (Aspirin) 81 Mg Chew 81 Mg PO DAILY Diltiazem (Diltiazem HCl) 120 Mg Tab 120 Mg PO DAILY Eliquis (Apixaban) 5 Mg Tab 5 Mg PO BID Sucralfate 1 Gram Tab 1 Gm PO QID on empty stomach Crestor (Rosuvastatin Calcium) 20 Mg Tab 10 Mg PO MON,WED,FRI Allergies: Coded Allergies: No Known Allergies (Unverified Allergy, Unknown, 07/03/17) Active Ordered Medications Current Medications Sodium Chloride (NS Flush) 2 ml UNSCH PRN IVF FLUSH AFTER USING IV ACCESS; Start 08/13/17 at 02:45; Stop 08/13/17 at 04:39; Status DC Nitroglycerin (Nitrostat Sl) 0.4 mg Q5M SL Last administered on 08/13/17at 03:02 ; Start 08/13/17 at 02:45; Stop 08/13/17 at 02:56; Status DC Sodium Chloride (NS Flush) 2 ml UNSCH PRN IV FLUSH FLUSH AFTER USING IV ACCESS ; Start 08/13/17 at 02:45; Stop 08/13/17 at 04:39; Status DC Diltiazem HCl (Cardizem Inj) 10 mg ONCE ONCE IV ; Start 08/13/17 at 02:45; Stop 08/13/17 at 02:45; Status DC Diltiazem HCl (Cardizem Inj) 10 mg ONCE ONCE IV ; Start 08/13/17 at 02:45; Stop 08/13/17 at 02:46; Status Cancel Diltiazem HCl (Cardizem Inj) 10 mg ONCE ONCE IV Last administered on at 02:53; Start 08/13/17 at 02:45; Stop 08/13/17 at 02:46; Status DC Diltiazem HCl (Cardizem Inj) 10 mg ONCE ONCE IV Last administered on at 03:17; Start 08/13/17 at 03:00; Stop 08/13/17 at 03:01; Status DC Morphine Sulfate (Morphine Inj) 4 mg ONCE ONCE IV PUSH Last administered on at 03:29; Start 08/13/17 at 03:30; Stop 08/13/17 at 03:31; Status DC Ondansetron HCl (Zofran Inj) 4 mg ONCE ONCE IV PUSH Last administered on at 03:29; Start 08/13/17 at 03:30; Stop 08/13/17 at 03:31; Status DC Diltiazem HCl 125 mg/Sodium Chloride 125 ml @ 5 mls/hr TITRATE PRN IV Tachycardia Last administered on 08/13/17at 03:53; Start 08/13/17 at 03:30 Aspirin (Aspirin) 325 mg ONCE ONCE PO Last administered on 08/13/17at 03:35; Start 08/13/17 at 03:30; Stop 08/13/17 at 03:31; Status DC Diltiazem HCl (Cardizem Inj) 20 mg ONCE ONCE IV Last administered on at 03:43; Start 08/13/17 at 03:45; Stop 08/13/17 at 03:46; Status DC Sodium Chloride 1,000 ml @ 100 mls/hr Q10H IV Last administered on 08/13/17at 09:31; Start 08/13/17 at 04:29 Sodium Chloride (NS Flush) 2 ml UNSCH PRN IV FLUSH FLUSH AFTER USING IV ACCESS ; Start 08/13/17 at 04:30 Sodium Chloride (NS Flush) 2 ml BID IV FLUSH Last administered on 08/13/17at 09: 31; Start 08/13/17 at 09:00 Acetaminophen (Tylenol) 650 mg Q4H PRN PO TEMP > 100.4; Start 08/13/17 at 04:30 Ondansetron HCl (Zofran Inj) 4 mg Q6H PRN IVP NAUSEA OR VOMITING; Start at 04:30 Naloxone HCl (Narcan Inj) 0.4 mg UNSCH PRN IV PUSH SEE LABEL COMMENTS; Start at 04:30 Morphine Sulfate (Morphine Inj) 4 mg ONCE ONCE IV PUSH Last administered on at 05:54; Start 08/13/17 at 06:00; Stop 08/13/17 at 06:01; Status DC Ceftriaxone Sodium 1000 mg/ Sodium Chloride 100 ml @ 200 mls/hr Q24H IV Last administered on 08/13/17at 09:31; Start 08/13/17 at 08:00 Morphine Sulfate (Morphine Inj) 4 mg ONCE ONCE IV PUSH Last administered on at 07:33; Start 08/13/17 at 07:15; Stop 08/13/17 at 07:16; Status DC Morphine Sulfate (Morphine Inj) 1 mg Q4H PRN IV PUSH chest pain; Start at 10:00 Family History Denies any family history of any medical conditions apart from cancers in some members. Social History Denies smoking/alcohol abuse/drug abuse. Physical Exam Vital Signs Vital Signs Date Time Temp Pulse Resp B/P (MAP) Pulse Ox O2 Delivery O2 Flow Rate FiO2 08/13/17 09:27 08/13/17 09:15 104 08/13/17 07:34 115 18 122/80 (94) 99 Room Air 08/13/17 06:30 110 16 118/73 (88) 95 Room Air 08/13/17 05:20 115 18 125/70 (88) 100 Room Air 08/13/17 04:51 120 18 143/91 (108) 98 Room Air 08/13/17 03:53 108 118/79 08/13/17 03:30 97.4 120 18 118/79 (92) 94 Room Air 08/13/17 03:00 128 20 135/69 (91) 95 Room Air 08/13/17 02:27 145 20 162/105 (124) 98 Room Air 08/13/17 02:15 106 20 173/111 (131) 97 Physical Exam GENERAL: This is a well-nourished, well-developed patient, in no apparent distress. SKIN: No rashes, ecchymoses or lesions. Cool and dry. HEAD: Atraumatic. Normocephalic. No temporal or scalp tenderness. EYES: Pupils equal round and reactive. Extraocular motions intact. No scleral icterus. No injection or drainage. ENT: Nose without bleeding, purulent drainage or septal hematoma. Throat without erythema, tonsillar hypertrophy or exudate. Uvula midline. Airway patent. NECK: Trachea midline. No JVD or lymphadenopathy. Supple, nontender, no meningeal signs. CARDIOVASCULAR: Bradycardia in sinus rhythm without murmurs, gallops, or rubs. RESPIRATORY: Clear to auscultation. Breath sounds equal bilaterally. No wheezes , rales, or rhonchi. GASTROINTESTINAL: Abdomen soft, non-tender, nondistended. No hepato-splenomegaly , or palpable masses. No guarding. MUSCULOSKELETAL: Extremities without clubbing, cyanosis, or edema. No joint tenderness, effusion, or edema noted. No calf tenderness. Negative Homans sign bilaterally. NEUROLOGICAL: Awake and alert. Cranial nerves II through XII intact. Motor and sensory grossly within normal limits. Five out of 5 muscle strength in all muscle groups. Normal speech. Laboratory Laboratory Tests Test 08/13/17 02:30 08/13/17 04:40 08/13/17 04:45 08/13/17 11:16 White Blood Count 20.2 Red Blood Count 4.45 Hemoglobin 13.3 Hematocrit 39.6 Mean Corpuscular Volume 89.0 Mean Corpuscular Hemoglobin 29.8 Mean Corpuscular Hemoglobin Concent 33.5 Red Cell Distribution Width 13.7 Platelet Count 158 Mean Platelet Volume 8.4 Neutrophils (%) (Auto) 74.5 Lymphocytes (%) (Auto) 18.7 Monocytes (%) (Auto) 5.6 Eosinophils (%) (Auto) 0.5 Basophils (%) (Auto) 0.7 Neutrophils # (Auto) 15.1 Lymphocytes # (Auto) 3.8 Monocytes # (Auto) 1.1 Eosinophils # (Auto) 0.1 Basophils # (Auto) 0.1 CBC Comment DIFF FINAL Differential Comment Prothrombin Time 10.7 Prothromb Time International Ratio 1.1 Activated Partial Thromboplast Time 26.6 Blood Urea Nitrogen 18 Creatinine 1.17 Random Glucose 153 Calcium Level 9.0 Magnesium Level 1.9 Sodium Level 138 Potassium Level 3.6 Chloride Level 101 Carbon Dioxide Level 29.1 Anion Gap 8 Estimat Glomerular Filtration Rate 48 Total Creatine Kinase 114 99 Creatine Kinase MB 2.5 Troponin I 0.33 0.65 Urine Color YELLOW Urine Turbidity CLEAR Urine pH 6.5 Urine Specific [place] 1.015 Urine Protein TRACE Urine Glucose (UA) NEG Urine Ketones NEG Urine Occult Blood NEG Urine Nitrite NEG Urine Bilirubin NEG Urine Urobilinogen LESS THAN 2.0 Urine Leukocyte Esterase LARGE Urine RBC 1 Urine WBC 45 Urine Squamous Epithelial Cells 1 Urine Transitional Epithelial Cells <1 Urine Renal Epithelial Cells 1 Urine Bacteria RARE Microscopic Urinalysis Comment CULTURE INDICATED Lactic Acid Level 1.2 Date/Time Source Procedure Growth Status 08/13/17 04:45 Blood Peripheral Aerobic Blood Culture Pending Received 08/13/17 04:45 Blood Peripheral Anaerobic Blood Culture Pending Received 08/13/17 04:45 Nasal Aspirate Influenza Types A,B Antigen (IRAJ) - Final NEGATIVE FOR FLU A AND B ANTIGEN.... Complete 08/13/17 04:40 Urine Clean Catch Urine Culture Pending Received Result Diagram: 08/13/17 0230 08/13/17 0230 Imaging Last Impressions Chest X-Ray 08/13/17 0000 Signed Impressions: Service Date/Time: Sunday, August 13, 2017 02:51 - CONCLUSION: No acute cardiopulmonary process. MD Kike Ratliff VTE Risk Assessment Kike VTE Risk Assessment: Mod/High Risk (score >= 2) Caprini Risk Assessment Model Point Value = 1 Point Value = 2 Point Value = 3 Point Value = 5 Age 41-60 Minor surgery BMI > 25 kg/m2 Swollen legs Varicose veins or History of unexplained or recurrent spontaneous Oral contraceptives or hormone replacement Sepsis (< 1 month) Serious lung disease, including pneumonia (< 1 month) Abnormal pulmonary function Acute myocardial infarction Congestive heart failure (< 1 month) History of inflammatory bowel disease Medical patient at bed rest Age 61-74 Arthroscopic surgery Major open surgery (> 45 min) Laparoscopic surgery (> 45 min) Malignancy Confined to bed (> 72 hours) Immobilizing plaster cast Central venous access Age >= 75 History of VTE Family history of VTE Factor V Leiden Prothrombin [id number] Lupus anticoagulant Anticardiolipin antibodies Elevated serum homocysteine Heparin-induced thrombocytopenia Other congenital or acquired thrombophilia Stroke (< 1 month) Elective arthroplasty Hip, pelvis, or leg fracture Acute spinal cord injury (< 1 month) Prophylaxis Regimen Total Risk Factor Score Risk Level Prophylaxis Regimen 0-1 Low Early ambulation 2 Moderate Order ONE of the following: *Sequential Compression Device (SCD) *Heparin 5000 units SQ BID 3-4 Higher Order ONE of the following medications: *Heparin 5000 units SQ TID *Enoxaparin/Lovenox 40 mg SQ daily (WT < 150 kg, CrCl > 30 mL/min) *Enoxaparin/Lovenox 30 mg SQ daily (WT < 150 kg, CrCl > 10-29 mL/min) *Enoxaparin/Lovenox 30 mg SQ BID (WT < 150 kg, CrCl > 30 mL/min) AND/OR *Sequential Compression Device (SCD) 5 or more Highest Order ONE of the following medications: *Heparin 5000 units SQ TID (Preferred with Epidurals) *Enoxaparin/Lovenox 40 mg SQ daily (WT < 150 kg, CrCl > 30 mL/min) *Enoxaparin/Lovenox 30 mg SQ daily (WT < 150 kg, CrCl > 10-29 mL/min) *Enoxaparin/Lovenox 30 mg SQ BID (WT < 150 kg, CrCl > 30 mL/min) AND *Sequential Compression Device (SCD) Assessment and Plan Assessment and Plan This is a 52-year-old female history of atrial fibrillation status post ablation who presented with chest pain and palpitation Atrial fibrillation with RVR -History of ablation. At home on metoprolol and Cardizem. Per patient compliant with medication. Echo done about 1 month ago shows an EF of 55%. -Patient was given a total of 50 mg of IV Cardizem bolus in the emergency department and was put on the Cardizem drip. She converted into sinus rhythm after 6 seconds of asystole. Patient now in sinus rhythm. Spoke to Dr. Batista triage specialist. Will hold all blocking agents. Cardizem discontinued. -Continue to monitor over telemetry. Patient will need to be remain in the IMC. -Management per triage specialist. Leukocytosis -UA suggest possible UTI. Patient was placed on Rocephin we will continue Rocephin pending urine cultures. Chest x-ray shows no signs of pneumonia patient is asymptomatic. -Continue to monitor and trend WBC. Elevated troponin -Most likely secondary to demand ischemia due to atrial fibrillation with RVR. Patient had a cardiac catheterization over over a year ago that was negative. -Continue to monitor and trend troponin. Chronic anti-coagulation secondary to atrial fibrillation -Continue Eliquis. GERD -Continue home medication. DVT prophylaxis -Continue with home Eliquis. Discussed case with patient's nurse Kalee Code Status full Discussed Condition With patient, her nurse Kalee, and Dr. Batista. Physician Certification 2 Midnight Certification Type: Admission for Inpatient Services Order for Inpatient Services The services are ordered in accordance with Medicare regulations or non- Medicare payer requirements, as applicable. In the case of services not specified as inpatient-only, they are appropriately provided as inpatient services in accordance with the 2-midnight benchmark. Estimated LOS (days): 3 3 days is the estimated time the patient will need to remain in the hospital, assuming treatment plan goals are met and no additional complications. Post-Hospital Plan: [place] Charu Silva MD Aug 13, 2017 12:58
[2017-08-13 15:15] LABS: TROPONIN I 0.96 NG/ML (0.02-0.05)
--- NOTE | 2017-08-13 16:49 | MB ---
cc: Andrea Batista MD DATE OF CONSULT: 08/13/2017 REASON FOR CONSULTATION: Atrial fibrillation, prolonged pause, chest pain. HISTORY OF PRESENT ILLNESS: The patient is a 52-year-old white female with a history of paroxysmal atrial fibrillation, status post 2 ablations, 2011 and March 2017, history of hypertension, hyperlipidemia, who was in her usual state of health up until yesterday at about 10 p.m. when she developed rapid irregular palpitations associated with shortness of breath as well as substernal chest tightness. The chest tightness lasted about 2 hours. In the past, she has noted the development of chest tightness when her heart rate exceeds 140 while in atrial fibrillation. The patient is able to feel the exact onset and offset of her atrial fibrillation episodes. She denies pleurisy, syncope, pedal edema, paroxysmal nocturnal dyspnea. She did develop near syncope earlier this morning. She had as long as a 10 second pause on monitoring. PAST MEDICAL HISTORY: 1. Paroxysmal atrial fibrillation, status post ablation procedures up in [place] in 2011 and again in March 2017. 2. Hypertension. 3. Hyperlipidemia. 4. Normal cardiac catheterizations 06/20/2015 and 03/2017. CARDIAC MEDICATIONS AT HOME: 1. Crestor 10 mg Wednesday, Wednesday, Wednesday. 2. Eliquis 5 mg b.i.d. 3. Diltiazem 120 mg daily. 4. Aspirin 81 mg daily. 5. Imdur 30 mg daily. ALLERGIES: NO KNOWN DRUG ALLERGIES. FAMILY HISTORY: Noncontributory. SOCIAL HISTORY: The patient denies any history of alcohol or tobacco abuse. REVIEW OF SYSTEMS: As in the History Of Present Illness, otherwise negative or noncontributory. She also denies headache, visual changes, unilateral weakness or numbness, abdominal pain, melena, dyspepsia, bright red blood per rectum. PHYSICAL EXAMINATION: VITAL SIGNS: Her blood pressure is 122/80 with a pulse of 76, respirations 15. GENERAL: She is a well-developed, well-nourished white female, in no acute distress. HEENT/NECK: Jugular venous pressure is normal. Carotid pulses are 2+ bilaterally and without bruits. RESPIRATORY: Examination of the chest reveals clear lung parikh. CARDIAC EXAMINATION: She has a regular rhythm and rate with a grade 1-2/6 systolic murmur heard throughout the precordium. The S2 heart sound is normal. No gallop is audible. ABDOMEN: On abdominal examination, she has a soft, obese, nontender abdomen. Bowel sounds are present. There is no definite hepatosplenomegaly. EXTREMITIES: Reveals no clubbing, cyanosis or edema. LABORATORY DATA: WBC 20.2, hemoglobin 13.3, platelets 158. Potassium 3.6, BUN 18, creatinine 1.17. CK 114. Troponin 0.96. INR 1.1. Chest x-ray shows no acute disease. IMPRESSION: Recurrent paroxysmal atrial fibrillation, atypical chest pain in this 52-year-old white female with a history of paroxysmal atrial fibrillation dating back several years with 2 ablations in 2011 and again in 2017, history of hypertension, hyperlipidemia. At this time, she is once again back in sinus rhythm. Her chest pain the last 24 hours is atypical for myocardial ischemia. CK levels are negative for infarction despite prolonged chest discomfort. She has had 2 normal cardiac catheterizations, last one about 3 months ago. EKG showed nonspecific ST and T-wave changes. With respect to her prolonged pause (10 seconds), it appears she did receive a large amount of intravenous Cardizem in the Emergency Department (40, possibly 50 mg bolus) as well as being started on a drip. Management of her atrial fibrillation may be difficult. She states she has been tried on sotalol and amiodarone in the past without success. She is somewhat reluctant to undergo a third ablation, although she would be agreeable if recommended. RECOMMENDATIONS: 1. Keep her off metoprolol and Cardizem for the evening. 2. Consider starting propafenone. 3. Continue anticoagulation therapy with Eliquis. 4. No additional ischemia workup at this time. 5. Consider electrophysiology consultation although both of our electrophysiologists in this area are out of town until this coming Wednesday. MD LIO Ruiz/JAMEL , 04:23 PM , 04:48 PM SAMUEL
[2017-08-13] MEDS: SUCRALFATE 1 GM TAB PO SCH ×2 (17:06→22:20)
[2017-08-13] MEDS ORDERED: ATORVASTATIN 20 MG TAB PO SCH (21:00)
[2017-08-13] MEDS: APIXABAN 5 MG TABLET PO SCH (22:20)
[2017-08-13] MEDS: PANTOPRAZOLE SOD 40 MG DELAYED RELEASE TAB PO SCH (22:21)
[2017-08-14] VITALS (9 sets, daily range): BP systolic 122–142; BP diastolic 66–81; PULSE 62–68; RESP 13–17; TEMP 97.8–98.4; O2SAT 93–100
[2017-08-14] MEDS: SODIUM CHLOR 0.9% 1000 ML INJ 1,000 ML IV SCH (00:29)
[2017-08-14 07:14] LABS: BASOPHIL # 0.1 TH/MM3 (0-0.2); BASOPHIL % 0.9 % (0.0-2.0); EOSINOPHIL # 0.3 TH/MM3 (0-0.4); EOSINOPHIL % 2.1 % (0.0-4.0); HEMATOCRIT 37.9 % (35.0-46.0); HEMOGLOBIN 12.4 GM/DL (11.6-15.3); LYMPH % 34.6 % (9.0-44.0); LYMPHOCYTE # 4.6 TH/MM3 (1.0-4.8); MEAN CELL VOLUME 89.9 FL (80.0-100.0); MEAN CORPUSCULAR HEMOGLOBIN 29.4 PG (27.0-34.0); MEAN CORPUSCULAR HGB CONC 32.7 % (32.0-36.0); MEAN PLATELET VOLUME 8.7 FL (7.0-11.0); MONO % 9.7 % (0.0-8.0); MONOCYTE # 1.3 TH/MM3 (0-0.9); NEUT % 52.7 % (16.0-70.0); PLATELET COUNT 152 TH/MM3 (150-450); RED BLOOD COUNT 4.21 MIL/MM3 (4.00-5.30); WHITE BLOOD COUNT 13.2 TH/MM3 (4.0-11.0)
[2017-08-14] MEDS: APIXABAN 5 MG TABLET PO SCH (07:32)
[2017-08-14] MEDS: SUCRALFATE 1 GM TAB PO SCH ×2 (07:32→14:25)
[2017-08-14] MEDS: PANTOPRAZOLE SOD 40 MG DELAYED RELEASE TAB PO SCH (07:32)
[2017-08-14] MEDS: SODIUM CHLORIDE 0.9% FLUSH 10 ML FLUSH IV FLUSH SCH (07:33)
[2017-08-14] MEDS: cefTRIAXone INJ 1,000 MG in SODIUM CHLORIDE 0.9% INJ 100 ML IV SCH (07:33)
[2017-08-14 07:46] LABS: BICARBONATE 26.2 MEQ/L (21.0-32.0); CALCIUM 8.4 MG/DL (8.5-10.1); CREATININE 0.94 MG/DL (0.50-1.00); MAGNESIUM 1.9 MG/DL (1.5-2.5)
[2017-08-14] MEDS ORDERED: CHOLECALCIFEROL (VIT D3) 1000 UNIT TAB PO SCH (09:00)
[2017-08-14] MEDS ORDERED: ASPIRIN 81 MG CHEW TAB PO SCH (09:00)
[2017-08-14] MEDS: PROPAFENONE HCL 150 MG TAB PO SCH ×2 (10:12→16:38)
--- NOTE | 2017-08-14 10:41 | PD.CARD.PN ---
Subjective Subjective Remarks Denies palpitations, dizziness, CP, dyspnea. Objective Medications Item Value Date Time Aspirin 81 mg 08/14/17 0900 (Aspirin Chew) DAILY/PO 08/14/17 0733 Propafenone HCl 150 mg 08/14/17 0900 (Rythmol) Q8H/PO 08/14/17 1012 Apixaban 5 mg 08/13/17 2100 (Eliquis) BID/PO 08/14/17 0732 Atorvastatin 20 mg 08/13/17 2100 Calcium MoWeFr@2100/PO 08/13/17 2220 (Lipitor) Current Medications Medications (Trade) Dose Ordered Sig/Cam Route Start Time Stop Time Status Last Admin Sodium Chloride 1,000 ml @ 100 mls/hr Q10H IV 08/13/17 04:29 08/14/17 00:29 (NS Flush) 2 ml UNSCH PRN IV FLUSH 08/13/17 04:30 (NS Flush) 2 ml BID IV FLUSH 08/13/17 09:00 08/14/17 07:33 (Tylenol) 650 mg Q4H PRN PO 08/13/17 04:30 (Zofran Inj) 4 mg Q6H PRN IVP 08/13/17 04:30 (Narcan Inj) 0.4 mg UNSCH PRN IV PUSH 08/13/17 04:30 Ceftriaxone Sodium 1000 mg/ Sodium Chloride 100 ml @ 200 mls/hr Q24H IV 08/13/17 08:00 08/14/17 07:33 (Morphine Inj) 1 mg Q4H PRN IV PUSH 08/13/17 10:00 (Eliquis) 5 mg BID PO 08/13/17 21:00 08/14/17 07:32 (Aspirin Chew) 81 mg DAILY PO 08/14/17 09:00 08/14/17 07:33 (Vitamin D3) 3,000 units DAILY PO 08/14/17 09:00 08/14/17 07:33 (Protonix) 40 mg BID PO 08/13/17 21:00 08/14/17 07:32 (Carafate) 1 gm QID PO 08/13/17 18:00 08/14/17 07:32 (Lipitor) 20 mg MoWeFr@2100 PO 08/13/17 21:00 08/13/17 22:20 (Rythmol) 150 mg Q8H PO 08/14/17 09:00 08/14/17 10:12 Vital Signs / I&O Vital Signs Date Time Temp Pulse Resp B/P (MAP) Pulse Ox O2 Delivery O2 Flow Rate FiO2 08/14/17 10:00 68 08/14/17 08:00 68 08/14/17 08:00 97.8 68 16 142/77 (98) 98 08/14/17 06:00 63 08/14/17 04:00 98.0 65 17 122/69 (86) 96 08/14/17 04:00 65 08/14/17 02:00 67 08/14/17 00:00 62 08/14/17 00:00 97.9 62 15 122/66 (84) 93 08/13/17 22:00 66 08/13/17 20:00 98.0 68 16 123/64 (83) 100 08/13/17 20:00 68 08/13/17 18:00 60 08/13/17 18:00 60 18 110/59 (76) 100 08/13/17 16:00 50 08/13/17 16:00 50 11 102/65 (77) 97 08/13/17 14:00 50 11 116/67 (83) 98 08/13/17 14:00 51 08/13/17 12:00 97.8 49 18 107/65 (79) 98 08/13/17 12:00 49 I/O 08/13/17 08/13/17 08/13/17 08/14/17 08/14/17 08/14/17 07:00 15:00 23:00 07:00 15:00 23:00 Intake Total 100 ml 1120 ml 100 ml Output Total 1100 ml 1500 ml Balance 100 ml -1100 ml -380 ml 100 ml Intake Oral 120 ml IV Total 100 ml 1000 ml 100 ml Output Urine Total 1100 ml 1500 ml # Bowel Movements 0 Physical Exam GENERAL: Well developed, well nourished. No acute distress. HEENT: Jugular venous pressure is normal. CHEST: Lungs clear to auscultation anteriorly. CARDIAC: Regular rate and rhythm without S3, S4, or murmur. ABDOMEN: Soft, nontender, no hepatosplenomegaly. Bowel sounds present. EXTREMITIES: No clubbing, cyanosis, or edema. Laboratory Laboratory Tests Test 08/13/17 11:16 08/13/17 14:28 08/14/17 06:07 Total Creatine Kinase 99 U/L 103 U/L Troponin I 0.65 NG/ML 0.96 NG/ML White Blood Count 13.2 TH/MM3 Red Blood Count 4.21 MIL/MM3 Hemoglobin 12.4 GM/DL Hematocrit 37.9 % Mean Corpuscular Volume 89.9 FL Mean Corpuscular Hemoglobin 29.4 PG Mean Corpuscular Hemoglobin Concent 32.7 % Red Cell Distribution Width 14.0 % Platelet Count 152 TH/MM3 Mean Platelet Volume 8.7 FL Neutrophils (%) (Auto) 52.7 % Lymphocytes (%) (Auto) 34.6 % Monocytes (%) (Auto) 9.7 % Eosinophils (%) (Auto) 2.1 % Basophils (%) (Auto) 0.9 % Neutrophils # (Auto) 7.0 TH/MM3 Lymphocytes # (Auto) 4.6 TH/MM3 Monocytes # (Auto) 1.3 TH/MM3 Eosinophils # (Auto) 0.3 TH/MM3 Basophils # (Auto) 0.1 TH/MM3 CBC Comment DIFF FINAL Differential Comment Blood Urea Nitrogen 17 MG/DL Creatinine 0.94 MG/DL Random Glucose 90 MG/DL Calcium Level 8.4 MG/DL Magnesium Level 1.9 MG/DL Sodium Level 143 MEQ/L Potassium Level 3.8 MEQ/L Chloride Level 109 MEQ/L Carbon Dioxide Level 26.2 MEQ/L Anion Gap 8 MEQ/L Estimat Glomerular Filtration Rate 62 ML/MIN Assessment and Plan Problem List: (1) Paroxysmal atrial fibrillation ICD Codes: I48.0 - Paroxysmal atrial fibrillation Status: Acute Plan: Remains in NSR. No further pauses. REC continue apixaban, propafenone f/u with Dr. Dennis 1-2 weeks after discharge keep off Cardizem (patient reluctant to continue it any way as feels causes CP) continue metoprolol, lower dose 25 mg bid can discharge later this afternoon after 2nd dose of propafenone, if remains stable (2) Chest pain ICD Codes: R07.9 - Chest pain, unspecified Status: Acute Plan: No further atypical CP. Suspect slight troponin elevations due to the atrial fibrillation with rapid HR's. Reportedly normal cath 3-4 months ago. (3) HTN (hypertension) ICD Codes: I10 - Essential (primary) hypertension Status: Chronic Plan: Stable. Mostly normotensive this admission. (4) HLD (hyperlipidemia) ICD Codes: E78.5 - Hyperlipidemia, unspecified Status: Chronic Plan: Continues on low dose statin therapy. Recommend primary prevention goals , f/u and therapy as per her PCP. Code Status full code Discussed Condition With patient and , at length Problem Qualifiers (1) Chest pain: Qualified Codes: R07.9 - Chest pain, unspecified (2) HTN (hypertension): Qualified Codes: I10 - Essential (primary) hypertension (3) HLD (hyperlipidemia): Qualified Codes: E78.5 - Hyperlipidemia, unspecified Andrea Batista MD Aug 14, 2017 10:41
[2017-08-14] MEDS ORDERED: PROP150T PO (14:50)
[2017-08-14] MEDS ORDERED: METO25TA3 PO (14:50)
--- NOTE | 2017-08-14 14:52 | HHI.DCPOC ---
Discharge Care Plan Diagnosis: (1) Atrial fibrillation with RVR (2) HTN (hypertension) (3) HLD (hyperlipidemia) Goals to Promote Your Health * To prevent worsening of your condition and complications * To maintain your health at the optimal level Directions to Meet Your Goals Take your medications as prescribed Follow your dietary instruction Follow activity as directed Keep your appointments as scheduled Take your immunizations and boosters as scheduled If your symptoms worsen call your PCP, if no PCP go to Urgent Care Center or Emergency Room Smoking is Dangerous to Your Health. Avoid second hand smoke Call the 24-hour hour crisis hotline for domestic abuse at Charu Silva MD Aug 14, 2017 14:52
--- NOTE | 2017-08-14 16:08 | HHI.PR ---
Objective Vitals Vital Signs Date Time Temp Pulse Resp B/P (MAP) Pulse Ox O2 Delivery O2 Flow Rate FiO2 08/14/17 16:00 65 08/14/17 14:00 68 08/14/17 12:00 98.4 64 13 139/70 (93) 97 08/14/17 12:00 64 08/14/17 10:00 68 08/14/17 08:00 68 08/14/17 08:00 97.8 68 16 142/77 (98) 98 08/14/17 06:00 63 08/14/17 04:00 98.0 65 17 122/69 (86) 96 08/14/17 04:00 65 08/14/17 02:00 67 08/14/17 00:00 62 08/14/17 00:00 97.9 62 15 122/66 (84) 93 08/13/17 22:00 66 08/13/17 20:00 98.0 68 16 123/64 (83) 100 08/13/17 20:00 68 08/13/17 18:00 60 08/13/17 18:00 60 18 110/59 (76) 100 I/O 08/13/17 08/13/17 08/13/17 08/14/17 08/14/17 08/14/17 07:00 15:00 23:00 07:00 15:00 23:00 Intake Total 100 ml 1120 ml 100 ml Output Total 1100 ml 1500 ml Balance 100 ml -1100 ml -380 ml 100 ml Intake Oral 120 ml IV Total 100 ml 1000 ml 100 ml Output Urine Total 1100 ml 1500 ml # Bowel Movements 0 Result Diagram: 08/14/17 0608/14/17 0607 A/P Assessment and Plan This is a 52-year-old female history of atrial fibrillation status post ablation who presented with chest pain and palpitation Atrial fibrillation with RVR -History of ablation. -Per thermoplastic technician continue apixaban, propafenone, avoid Cardizem, continue metoprolol at 25 mg p.o. twice daily. Can be discharged later this afternoon after second dose of propafenone, if remains stable, and follow-up with Dr. Dennis in 1-2 weeks after discharge. Leukocytosis -improved. Most likely secondary to age of ablation with RVR. Urine cultures negative contaminant. Chest x-ray was -2. Can stop Rocephin. Elevated troponin -Most likely secondary to demand ischemia due to atrial fibrillation with RVR. Patient had a cardiac catheterization over over a year ago that was negative. -Continue to monitor and trend troponin. Chronic anti-coagulation secondary to atrial fibrillation -Continue Eliquis. GERD -Continue home medication. DVT prophylaxis -Continue with home Eliquis. Discharge Planning Possible discharge this afternoon if patient does want her second dose Charu Silva MD Aug 14, 2017 16:08
--- NOTE | 2017-08-14 17:15 | HHI.DS ---
Discharge Summary Admission Date Aug 13, 2017 at 04:27 Admitting Diagnosis AFIB RVR; Elevated Troponin Brief History - From Admission This is a 52-year-old female history of atrial fibrillation status post ablation who presented with palpitations and chest pain. Patient stated that when the symptoms happen she is usually in atrial fibrillation with a fast heart rate. She stated that she checked her heart rate at home it was in the 140s so she went to the hospital. Patient was found to be in atrial fibrillation with RVR. Patient stated that when her heart rate goes in the 150s test when she gets chest pain. Patient was bolused with Cardizem IV for a total of 50 mg in the emergency department was then put on Cardizem drip. This morning patient went to asystole for about 6 seconds with symptoms of dizziness. Then she went into sinus rhythm with bradycardia in the 40s. During my interview with the patient she was running a heart rate in the 50s still in sinus rhythm. Patient stated that this happens a lot where she is put on a Cardizem drip that she goes in a sinus rhythm and her blood pressure goes very low. At the moment she says she feels fatigued but she feels a lot better. She denies any palpitation, shortness of breathing, chest pain. Patient stated that she is very compliant with her medication. She said that she takes her metoprolol and Cardizem. Patient was admitted to the hospital about 1 month ago in which she was evaluated by Dr. Ross vocational teacher who stated that if patient goes into RVR she may need another ablation. I spoke to Dr. Batista vocational teacher over the phone in regards to the consult since patient went to asystole. All other review of system reviewed and negative. CBC/BMP: 08/14/17 0607 08/14/17 0607 Significant Findings Laboratory Tests Test 08/13/17 02:30 08/13/17 04:40 08/13/17 04:45 08/13/17 09:10 White Blood Count 20.2 TH/MM3 (4.0-11.0) Neutrophils (%) (Auto) 74.5 % (16.0-70.0) Neutrophils # (Auto) 15.1 TH/MM3 (1.8-7.7) Monocytes # (Auto) 1.1 TH/MM3 (0-0.9) Creatinine 1.17 MG/DL (0.50-1.00) Random Glucose 153 MG/DL (74-106) Estimat Glomerular Filtration Rate 48 ML/MIN (>89) Troponin I 0.33 NG/ML (0.02-0.05) Urine Leukocyte Esterase LARGE (NEG) Urine WBC 45 /hpf (0-5) Urine Bacteria RARE /hpf (NONE) Test 08/13/17 11:16 08/13/17 14:28 08/14/17 06:07 Troponin I 0.65 NG/ML (0.02-0.05) 0.96 NG/ML (0.02-0.05) White Blood Count 13.2 TH/MM3 (4.0-11.0) Monocytes (%) (Auto) 9.7 % (0.0-8.0) Monocytes # (Auto) 1.3 TH/MM3 (0-0.9) Calcium Level 8.4 MG/DL (8.5-10.1) Chloride Level 109 MEQ/L (98-107) Estimat Glomerular Filtration Rate 62 ML/MIN (>89) Pt Condition on Discharge: Stable Discharge Disposition: Discharge Home Discharge Instructions DIET: Follow Instructions for: Heart Healthy Diet Activities you can perform: Regular-No Restrictions Charu Silva MD Aug 14, 2017 17:15
--- NOTE | 2017-08-14 18:17 | EKG ---
Date Performed: 08/13/2017 Time Performed: 02:18:22 PTAGE: 52 years EKG: ATRIAL FIBRILLATION WITH RAPID VENTRICULAR RESPONSE SLIGHT RIGHT VENTRICULAR CONDUCTION DIS TURBANCE DIFFUSE NONSPECIFIC ST-T CHANGE ABNORMAL ECG Compared to PREVIOUS TRACING , the rhythm has changed from sinus bradycardia to atrial fibrillation. The ST-T change is more prominent. Clinical correlation is recommended. PREVIOUS TRACIN07/03/2017 11.08 DOCTOR: Percy Rice Interpretating Date/Time 08/14/2017 18:15:58
--- NOTE | 2017-08-14 18:18 | EKG ---
Date Performed: 08/13/2017 Time Performed: 03:48:43 PTAGE: 52 years EKG: ATRIAL FIBRILLATION WITH RAPID VENTRICULAR RESPONSE POSSIBLE RIGHT VENTRICULAR CONDUCTION D ELAY VOLTAGE CRITERIA FOR LVH NONSPECIFIC ST & T-WAVE ABNORMALITY ABNORMAL ECG Compared to PREVIOUS TRACING , the heart rate has decreased. PREVIOUS TRACIN08/13/2017 02.18 DOCTOR: Percy Rice Interpretating Date/Time 08/14/2017 18:16:23
--- NOTE | 2017-08-14 18:19 | EKG ---
Date Performed: 08/13/2017 Time Performed: 19:20:58 PTAGE: 52 years EKG: SINUS BRADYCARDIA LEFT VENTRICULAR HYPERTROPHY AND ST-T CHANGE ABNORMAL ECG Compared to PREVIOUS TRACING , the rhythm has changed from atrial fibrillation to sinus bradycardia. The ST-T changes are somwhat improved. PREVIOUS TRACIN08/13/2017 03.48 DOCTOR: Percy Rice Interpretating Date/Time 08/14/2017 18:17:02
[2017-08-14] MEDS ORDERED: METOPROLOL TARTRATE 25 MG TAB PO SCH (21:00)
== END 2017-08-14 17:40 | disposition home or self-care (01) | DRG 309 ==
LOC: NEPC 02:09 → NEDA 04:27 → HIMW 09:15
PROVIDERS: ADMIT Family Medicine; ATTEND Family Medicine
DX: I48.0 Paroxysmal atrial fibrillation (principal); I24.8 Other forms of acute ischemic heart disease; I42.2 Other hypertrophic cardiomyopathy; I10 Essential (primary) hypertension; E78.5 Hyperlipidemia, unspecified; I46.9 Cardiac arrest, cause unspecified; R00.1 Bradycardia, unspecified; K21.9 Gastro-esophageal reflux disease without esophagitis; D72.829 Elevated white blood cell count, unspecified; G47.30 Sleep apnea, unspecified; Z79.01 Long term (current) use of anticoagulants; Z96.651 Presence of right artificial knee joint
CPT/HCPCS: 71045; 80048; 81001; 82550; 82552; 83605; 83735; 84484; 85025; 85610; 85730; 87040; 87086; 87641; 87804; 93005; 96365; 96375; 96376; J0696; J2270; J2405; J7030

== ENCOUNTER 2017-08-21 01:53 | Inpatient (IN) | payer OTHER ==
[~2017-08-21] VITALS: Ht 170.2 cm; Wt 99.0 kg
[2017-08-21] VITALS (18 sets, daily range): BP systolic 109–170; BP diastolic 59–97; PULSE 54–135; RESP 14–20; TEMP 97.7–98.8; O2SAT 95–100
[~2017-08-21 01:53] MED LIST changes: -ASPI81CH6 PO; -DILT120T PO; +HYDR-3516 PO; -METO-309 PO; +METO25TA3 PO; -OMEP40CA2 PO; +PANT40TA3 PO; +PROP150T PO
[2017-08-21] MEDS ORDERED: SODIUM CHLORIDE 0.9% FLUSH 10 ML FLUSH IV FLUSH PRN ×2 (02:30→05:30)
[2017-08-21] MEDS ORDERED: LORazepam 2 MG/ML VIAL IV PUSH ONE (02:30)
[2017-08-21] MEDS ORDERED: DILTIAZEM HCL 25 MG/5 ML VIAL IV PUSH ONE (02:30)
[2017-08-21] MEDS: METOPROLOL TARTRATE 5 MG/5 ML VIAL IV PUSH PRN ×3 (02:44→03:38)
[2017-08-21] MEDS ORDERED: DILTIAZEM HCL 50 MG/10 ML VIAL IV PUSH ONE (02:45)
[2017-08-21 02:54] LABS: AUTOMATED NEUTROPHIL # 11.9 TH/MM3 (1.8-7.7); BASOPHIL # 0.2 TH/MM3 (0-0.2); EOSINOPHIL # 0.3 TH/MM3 (0-0.4); EOSINOPHIL % 1.4 % (0.0-4.0); HEMATOCRIT 42.3 % (35.0-46.0); LYMPH % 29.1 % (9.0-44.0); LYMPHOCYTE # 5.7 TH/MM3 (1.0-4.8); MEAN CELL VOLUME 89.7 FL (80.0-100.0); MEAN CORPUSCULAR HEMOGLOBIN 29.8 PG (27.0-34.0); MEAN CORPUSCULAR HGB CONC 33.2 % (32.0-36.0); MEAN PLATELET VOLUME 8.3 FL (7.0-11.0); MONOCYTE # 1.6 TH/MM3 (0-0.9); NEUT % 60.5 % (16.0-70.0); PLATELET COUNT 124 TH/MM3 (150-450); RED BLOOD COUNT 4.71 MIL/MM3 (4.00-5.30); RED CELL DISTRIBUTION WIDTH 13.9 % (11.6-17.2); WHITE BLOOD COUNT 19.6 TH/MM3 (4.0-11.0)
[2017-08-21 03:11] LABS: INTERNATIONAL NORMALIZED RATIO 1.1 RATIO; PROTHROMBIN TIME - PATIENT 10.9 SEC (9.8-11.6)
[2017-08-21 03:12] LABS: BICARBONATE 25.9 MEQ/L (21.0-32.0); CALCIUM 9.5 MG/DL (8.5-10.1); CREATININE 1.16 MG/DL (0.50-1.00); MAGNESIUM 1.8 MG/DL (1.5-2.5)
[2017-08-21 03:14] LABS: TROPONIN I 8.81 NG/ML (0.02-0.05)
[2017-08-21 03:17] LABS: D-DIMER 0.65 MG/L FEU (0.00-0.50)
--- NOTE | 2017-08-21 03:25 | RADRPT ---
EXAM DATE/TIME: 08/21/2017 02:39 [facility] COMPARISON: CHEST SINGLE AP, August 13, 2017, 2:51. INDICATIONS : Chest pain MEDICAL HISTORY : Hypercholesterolemia. Hypertension A-fib, Cardiomyopathy. SURGICAL HISTORY : Total knee replacement, right. Cardiac ablations. ENCOUNTER: Initial ACUITY: 4 - 6 days PAIN SCORE: 10/10 LOCATION: Bilateral chest inferior FINDINGS: A single view of the chest demonstrates the lungs to be symmetrically aerated without evidence of mas s, infiltrate or effusion. The cardiomediastinal contours are unremarkable. Osseous structures are intact. CONCLUSION: No acute disease. Damian Melendez MD on August 21, 2017 at 3:23 Board Certified Radiologist. This report was verified electronically.
[2017-08-21] MEDS ORDERED: MORPHINE SULFATE 4 MG/ML INJ IV PUSH ONE (03:30)
--- NOTE | 2017-08-21 03:33 | PD ---
HPI . Chest pain Chief Complaint: Chest Pain Time Seen by Provider: 02:22 Travel History International Travel<30 days: No Contact w/Intl Traveler<30days: No Traveled to known affect area: No History of Present Illness HPI This patient presents with a four-day history of chest pain. She states that she has been in atrial fibrillation since about 11 PM. She has a history of same. She was admitted to the hospital 08/13 for A. fib with RVR. She is on Eliquis. She was treated with a Cardizem bolus and drip. The next morning, she developed bradycardia followed by a 6 second episode of asystole. Therefore , cardiology recommended that Cardizem be avoided. She rates her pain at 10/10 and reports no known modifying factors. PFSH Past Medical History Arthritis: Yes (osteoarthritis R knee) Asthma: No Autoimmune Disease: No Anxiety: No Depression: No Heart Rhythm Problems: Yes (a. fib.) Cancer: No Cardiovascular Problems: Yes (CARDIOMYOPATHY) High Cholesterol: Yes Chemotherapy: No Chest Pain: Yes (last occurence 07/03/17) Congestive Heart Failure: No COPD: No Cerebrovascular Accident: No Diabetes: No Diminished Hearing: No Endocrine: No Gastrointestinal Disorders: No GERD: No Genitourinary: Yes Hiatal Hernia: No Heparin Induced Thrombocytopen: No Hypertension: Yes Immune Disorder: No Implanted Vascular Access Dvce: No Kidney Stones: No Musculoskeletal: No Neurologic: No Psychiatric: No Reproductive: No Respiratory: No Radiation Therapy: No Renal Failure: No Sickle Cell Disease: No Sleep Apnea: Yes Thyroid Disease: No Ulcer: No ?: Not Menopausal: Yes Past Surgical History Abdominal Surgery: No AICD: No Arteriovenous Shunt: No Cardiac Surgery: Yes (x2 ablations for A. fib.) Coronary Artery Bypass Graft: Yes Ear Surgery: No Endocrine Surgery: No Eye Surgery: No Genitourinary Surgery: No Gynecologic Surgery: No Insulin Pump: No Joint Replacement: No Neurologic Surgery: No Oral Surgery: Yes (wisdom tooth removal 2007) Pacemaker: No Thoracic Surgery: No Other Surgery: Yes (R knee replacement, R bunion, ablation x2) Social History Alcohol Use: No Tobacco Use: No Substance Use: No Allergies-Medications (Allergen,Severity, Reaction): Coded Allergies: diltiazem (Verified Allergy, Severe, bradycardia to asystole , 08/21/17) No Known Allergies (Unverified Allergy, Unknown, 08/21/17) Reported Meds & Prescriptions Reported Meds & Active Scripts Active Metoprolol Tartrate 25 Mg Tab 25 Mg PO BID Propafenone (Propafenone HCl) 150 Mg Tab 150 Mg PO Q8H Reported Pantoprazole (Pantoprazole Sodium) 40 Mg Tab 40 Mg PO BID Hydrocodone-Acetaminophen 5-325 mg Tab 1 Tab PO Q8HR PRN Vitamin D3 (Cholecalciferol) 3,000 Unit Tab 3,000 Units PO DAILY Eliquis (Apixaban) 5 Mg Tab 5 Mg PO BID Sucralfate 1 Gram Tab 1 Gm PO QID on empty stomach Crestor (Rosuvastatin Calcium) 20 Mg Tab 10 Mg PO MON,WED,FRI Review of Systems Except as stated in HPI: all other systems reviewed are Neg Cardiovascular: Positive: Chest Pain or Discomfort, Palpitations, Irregular Rhythm, Tachycardia Gastrointestinal: Positive: Nausea Physical Exam Narrative GENERAL: This patient is very whiny making evaluation somewhat difficult. SKIN: warm/dry. HEAD: Normocephalic. Atraumatic. EYES: Pupils equal and round. No scleral icterus. No injection or drainage. ENT: No nasal bleeding or discharge. Mucous membranes pink and moist. NECK: Trachea midline. Full range of motion without pain.. CARDIOVASCULAR: Irregularly irregular rate and rhythm with a rate of about 150. RESPIRATORY: No accessory muscle use. Clear to auscultation. Breath sounds equal bilaterally. MUSCULOSKELETAL: No obvious deformities. NEUROLOGICAL: Awake and alert. No obvious cranial nerve deficits. Motor grossly within normal limits. Normal speech. PSYCHIATRIC: Appropriate mood and affect; insight and judgment normal. Data Data Last Documented VS Vital Signs Date Time Temp Pulse Resp B/P (MAP) Pulse Ox O2 Delivery O2 Flow Rate FiO2 08/21/17 01:58 98.8 120 20 141/97 (112) 100 Room Air Orders Orders Ecg Monitoring (08/21/17 02:24) Blood Pressure (08/21/17 02:24) Iv Access Insert/Monitor (08/21/17 02:24) Oximetry (08/21/17 02:24) Vital Signs (08/21/17 02:24) Diltiazem Inj (Cardizem Inj) (08/21/17 02:30) Sodium Chloride 0.9% Flush (Ns Flush) (08/21/17 02:30) Diltiazem Inj (Cardizem Inj) (08/21/17 02:45) Lorazepam Inj (Ativan Inj) (08/21/17 02:30) Basic Metabolic Panel (Bmp) (08/21/17 02:30) Complete Blood Count With Diff (08/21/17 02:30) D-Dimer (08/21/17 02:30) Magnesium (Mg) (08/21/17 02:30) Prothrombin Time / Inr (Pt) (08/21/17 02:30) Act Partial Throm Time (Ptt) (08/21/17 02:30) Troponin I (08/21/17 02:30) Chest, Single Ap (08/21/17 02:30) Metoprolol Tartrate Inj (Lopressor Inj) (08/21/17 02:45) Morphine Inj (Morphine Inj) (08/21/17 03:30) Esmolol Drip Inj Premix (Brevibloc Drip (08/21/17 04:00) Esmolol Bolus Inj (Brevibloc Bolus Inj) (08/21/17 04:00) Esmolol Bolus Inj (Brevibloc Bolus Inj) (08/21/17 04:00) Labs Laboratory Tests Test 08/21/17 02:30 White Blood Count 19.6 TH/MM3 Red Blood Count 4.71 MIL/MM3 Hemoglobin 14.0 GM/DL Hematocrit 42.3 % Mean Corpuscular Volume 89.7 FL Mean Corpuscular Hemoglobin 29.8 PG Mean Corpuscular Hemoglobin Concent 33.2 % Red Cell Distribution Width 13.9 % Platelet Count 124 TH/MM3 Mean Platelet Volume 8.3 FL Neutrophils (%) (Auto) 60.5 % Lymphocytes (%) (Auto) 29.1 % Monocytes (%) (Auto) 8.0 % Eosinophils (%) (Auto) 1.4 % Basophils (%) (Auto) 1.0 % Neutrophils # (Auto) 11.9 TH/MM3 Lymphocytes # (Auto) 5.7 TH/MM3 Monocytes # (Auto) 1.6 TH/MM3 Eosinophils # (Auto) 0.3 TH/MM3 Basophils # (Auto) 0.2 TH/MM3 CBC Comment AUTO DIFF Prothrombin Time 10.9 SEC Prothromb Time International Ratio 1.1 RATIO Activated Partial Thromboplast Time 23.3 SEC D-Dimer Quantitative (PE/DVT) 0.65 MG/L FEU Blood Urea Nitrogen 22 MG/DL Creatinine 1.16 MG/DL Random Glucose 126 MG/DL Calcium Level 9.5 MG/DL Magnesium Level 1.8 MG/DL Sodium Level 137 MEQ/L Potassium Level 4.0 MEQ/L Chloride Level 101 MEQ/L Carbon Dioxide Level 25.9 MEQ/L Anion Gap 10 MEQ/L Estimat Glomerular Filtration Rate 49 ML/MIN Troponin I 8.81 NG/ML [facility] Medical Decision Making Medical Screen Exam Complete: Yes Emergency Medical Condition: Yes Medical Record Reviewed: Yes (previous history of AF with RVR status post ablation. She also has a history of hypertension.) Interpretation(s) EKG shows atrial fibrillation with rapid ventricular rate. There is diffuse ST segment elevations/T-wave inversion which has not been present on previous EKGs even when she was in AF with RVR. Differential Diagnosis Differential diagnosis of tachycardia includes but is not limited to PSVT, atrial fibrillation with a rapid ventricular response, sinus tachycardia (due to hypovolemia, anemia, thyrotoxicosis, PE) Narrative Course This patient presents with chest pain for 4 days and atrial fibrillation with RVR for a few hours. She has a history of same. She cannot take Cardizem because of bradycardia/asystole. An IV was started and she was given Lopressor. She has been given Ativan as she is extremely anxious appearing. She has been given morphine for pain. CBC & BMP Diagram 08/21/17 02:30 Calcium Level 9.5, Magnesium Level 1.8 Trop 8.81 D-dimer 0.65 She was given Lopressor 5 mg IV 3 minimal relief of her tachycardia. I have subsequently ordered esmolol drip. This patient will need to be admitted to the intensive care unit because of the esmolol. She may also have had a non-STEMI. Critical Care Narrative Aggregate critical care time was 45 minutes. Time to perform other separately billable procedures was not included in the critical care time. My time did not include minutes spent treating any other patients simultaneously or on activities that did not directly contribute to the patient's treatment. The services I provided to this patient were to treat and/or prevent clinically significant deterioration due to AF with RVR, elevated trop, r/o NSTEMI I provided critical care services requiring my management, as noted below: Chart data review, documentation time, medication orders and management, vital sign assessments/reviewing monitor data, ordering and reviewing lab tests, ordering and interpreting/reviewing x-rays and diagnostic studies, care of the patient and discussion of the patient with the admitting physicians Diagnosis Primary Impression: Atrial fibrillation with RVR Admitting Information Admitting Physician Requests: Admit Condition: Stable Kati Calderon MD Aug 21, 2017 03:32
[2017-08-21] MEDS ORDERED: ESMOLOL DRIP INJ PREMIX 250 ML IV PRN (04:00)
[2017-08-21] MEDS ORDERED: ESMOLOL HCL 100 MG/10 ML VIAL IV PUSH PRN (04:00)
[2017-08-21] MEDS ORDERED: ESMOLOL HCL 100 MG/10 ML VIAL IV PUSH ONE (04:00)
[2017-08-21 05:19] LABS: CORRECTED NUCLEATED RBC 1 /100 WBC (0-0); LYMPHOCYTES 24 % (9-44); MONOCYTES 8 % (0-8); NEUTROPHIL # MANUAL DIFF 12.7 TH/MM3 (1.8-7.7); NUCLEATED RED BLOOD CELL 1 (0-0); POLYS (SEG NEUTROPHILS) 65 % (16-70)
[2017-08-21] MEDS ORDERED: TEMAZEPAM 15 MG CAP PO PRN (05:30)
[2017-08-21] MEDS ORDERED: BISACODYL 10 MG SUPP RECTAL PRN (05:30)
[2017-08-21] MEDS ORDERED: SENNOSIDES 8.6 MG TAB PO PRN (05:30)
[2017-08-21] MEDS ORDERED: MAGNESIUM HYDROXIDE SUSP 30 ML CUP PO PRN (05:30)
[2017-08-21] MEDS ORDERED: NON-FORMULARY DRUG (Rosuvastatin (Crestor) 10 MG) PO SCH (05:30)
[2017-08-21] MEDS ORDERED: MISCELLANEOUS NURSING INFORMATION XX SCH (05:30)
[2017-08-21] MEDS ORDERED: CHLORHEXIDINE GLUCONATE 2 % 1 PACK (2 CLOTHS) TOP PRN (05:30)
[2017-08-21] MEDS ORDERED: ACETAMINOPHEN 325 MG TAB PO PRN (05:30)
[2017-08-21] MEDS ORDERED: LACTULOSE SYRUP 20 GM/30 ML CUP PO PRN (05:30)
--- NOTE | 2017-08-21 05:36 | HHI.HP ---
[facility] Service Critical Care Medicine Primary Care Physician [facility] Admission Diagnosis AF with RVR, elevated trop Diagnosis: Travel History International Travel<30 Days: No Contact w/Intl Traveler <30 Da: No Traveled to Known Affected Are: No History of Present Illness 52-year-old female presents with a four-day history of chest pain. She states that she has been in atrial fibrillation since about 11 PM. She has a history of atrial fibrillation with rapid ventricular response. She was admitted to the hospital 08/13 for A. fib with RVR. She is on Eliquis. She was treated with a Cardizem bolus and drip. The next morning, she developed bradycardia followed by a 6 second episode of asystole. Therefore, cardiology recommended that Cardizem be avoided. She rates her pain at 10/10 and reports no known modifying factors. When I came to examine the patient she was comfortably sleeping in the bed with no complaints at that time. Review of Systems Constitutional: DENIES: Diaphoretic episodes, Fatigue, Fever, Weight gain, Weight loss, Chills, Dizziness, Change in appetite, Night Sweats Endocrine: DENIES: Abnorml menstrual pattern, Heat/cold intolerance, Polydipsia , Polyuria, Polyphagia Eyes: DENIES: Blurred vision, Diplopia, Eye inflammation, Eye pain, Vision loss , Photosensitivity, Double Vision Ears, nose, mouth, throat: DENIES: Tinnitus, Hearing loss, Vertigo, Nasal discharge, Oral lesions, Throat pain, Hoarseness, Ear Pain, Running Nose, Epistaxis, Sinus Pain, Toothache, Odynophagia Respiratory: COMPLAINS OF: Shortness of breath, DENIES: Apneas, Cough, Snoring , Wheezing, Hemoptysis, Sputum production Cardiovascular: COMPLAINS OF: Chest pain, Palpitations, DENIES: Syncope, Dyspnea on Exertion, PND, Lower Extremity Edema, Orthopnea, Claudication Gastrointestinal: DENIES: Abdominal pain, Black stools, Bloody stools, Constipation, Diarrhea, Nausea, Vomiting, Difficulty Swallowing, Anorexia Genitourinary: DENIES: Abnormal vaginal bleeding, Dysmenorrhea, Dyspareunia, Sexual dysfunction, Urinary frequency, Urinary incontinence, Urgency, Hematuria , Dysuria, Nocturia, Vaginal discharge Musculoskeletal: DENIES: Joint pain, Muscle aches, Stiffness, Joint Swelling, Back pain, Neck pain Integumentary: DENIES: Abnormal pigmentation, Pruritus, Rash, Nail changes, Breast masses, Breast skin changes, Nipple discharge Hematologic/lymphatic: DENIES: Bruising, Lymphadenopathy Immunologic/allergic: DENIES: Eczema, Urticaria Neurologic: DENIES: Abnormal gait, Headache, Localized weakness, Paresthesias, Seizures, Speech Problems, Tremor, Poor Balance Psychiatric: DENIES: Anxiety, Confusion, Mood changes, Depression, Hallucinations, Agitation, Suicidal Ideation, Homicidal Ideation, Delusions Past Family Social History Allergies: Coded Allergies: diltiazem (Verified Allergy, Severe, bradycardia to asystole , 08/21/17) No Known Allergies (Unverified Allergy, Unknown, 08/21/17) Past Medical History GERD Atrial fibrillation Hypertension Sleep apnea Hypertrophic cardiomyopathy Past Surgical History Ablation Right knee replacement Reported Medications Reported Meds & Active Scripts Active Metoprolol Tartrate 25 Mg Tab 25 Mg PO BID Propafenone (Propafenone HCl) 150 Mg Tab 150 Mg PO Q8H Reported Pantoprazole (Pantoprazole Sodium) 40 Mg Tab 40 Mg PO BID Hydrocodone-Acetaminophen 5-325 mg Tab 1 Tab PO Q8HR PRN Vitamin D3 (Cholecalciferol) 3,000 Unit Tab 3,000 Units PO DAILY Eliquis (Apixaban) 5 Mg Tab 5 Mg PO BID Sucralfate 1 Gram Tab 1 Gm PO QID on empty stomach Crestor (Rosuvastatin Calcium) 20 Mg Tab 10 Mg PO MON,WED,WED Active Ordered Medications Current Medications Medications (Trade) Dose Ordered Sig/Cam Route PRN Reason Start Time Stop Time Status Last Admin Dose Admin Sodium Chloride (NS Flush) 2 ml UNSCH PRN IV FLUSH FLUSH AFTER USING IV ACCESS 08/21/17 02:30 Metoprolol Tartrate (Lopressor Inj) 5 mg Q5M PRN IV PUSH tachycardia 08/21/17 02:45 08/21/17 03:38 Esmolol HCl/ Sodium Chloride 250 ml @ 0 mls/hr TITRATE PRN IV Blood Pressure Management 08/21/17 04:00 08/21/17 04:31 Esmolol HCl (Brevibloc Bolus Inj) 50 mg BOLUS PRN IV PUSH Rebolus 08/21/17 04:00 Cholecalciferol (Vitamin D3) 3,000 units DAILY PO 08/21/17 09:00 Acetaminophen/ Hydrocodone Bitart ([place] 5-325 Mg) 1 tab Q8HR PRN PO PAIN 08/21/17 05:30 Metoprolol Tartrate (Lopressor) 25 mg BID PO 08/21/17 09:00 Pantoprazole Sodium (Protonix) 40 mg BID PO 08/21/17 09:00 Propafenone HCl (Rythmol) 150 mg Q8H PO 08/21/17 06:00 Sucralfate (Carafate) 1 gm QID PO 08/21/17 09:00 Non-Formulary Medication 10 mg MON,WED,WED PO 08/21/17 05:30 Sodium Chloride 1,000 ml @ 84 mls/hr [id number] IV 08/21/17 05:28 Sodium Chloride (NS Flush) 2 ml UNSCH PRN IV FLUSH FLUSH AFTER USING IV ACCESS 08/21/17 05:30 Sodium Chloride (NS Flush) 2 ml BID IV FLUSH 08/21/17 09:00 Acetaminophen (Tylenol) 650 mg Q6H PRN PO FEVER >101F 08/21/17 05:30 Temazepam (Restoril) 15 mg HS PRN PO INSOMNIA 08/21/17 05:30 Miscellaneous Information 1 Q361D XX 08/21/17 05:30 08/21/17 05:30 Chlorhexidine Gluconate (Chlorhexidine 2% Cloth) 3 pack Taper DAILY@04 TOP 08/22/17 04:00 08/18/18 03:59 Chlorhexidine Gluconate (Chlorhexidine 2% Cloth) 3 pack UNSCH PRN TOP HYGIENIC CARE 08/21/17 05:30 Senna/Docusate Sodium (Marlena-Colace) 1 tab BID PO 08/21/17 09:00 Magnesium Hydroxide (Milk Of Magnesia Liq) 30 ml Q12H PRN PO Mild constipation 08/21/17 05:30 Sennosides (Senokot) 17.2 mg Q12H PRN PO Moderate constipation 08/21/17 05:30 Bisacodyl (Dulcolax Supp) 10 mg DAILY PRN RECTAL SEVERE CONSITIPATION 08/21/17 05:30 Lactulose (Lactulose Liq) 30 ml DAILY PRN PO SEVERE CONSITIPATION 08/21/17 05:30 Heparin Sodium (Porcine) (Heparin Inj) 5,000 units UNSCH PRN IV PUSH APTT LESS THAN 25 08/21/17 11:45 Heparin Sodium (Porcine) (Heparin Inj) 2,500 units UNSCH PRN IV PUSH APTT 25 TO 39 08/21/17 11:45 Heparin Sodium/ Dextrose 250 ml @ 10 mls/hr TITRATE PRN IV Coagulation Management 08/21/17 05:45 Family History Denies any family history of any medical conditions apart from cancers in some members. Social History Denies smoking/alcohol abuse/drug abuse. Physical Exam Vital Signs Vital Signs Date Time Temp Pulse Resp B/P (MAP) Pulse Ox O2 Delivery O2 Flow Rate FiO2 08/21/17 05:20 127 18 111/81 (91) 100 08/21/17 04:53 135 16 143/88 (106) 100 08/21/17 04:31 136 136/80 08/21/17 01:58 98.8 120 20 141/97 (112) 100 Room Air Physical Exam GENERAL: Well-nourished, well-developed patient. SKIN: Warm and dry. HEAD: Normocephalic. EYES: No scleral icterus. No injection or drainage. NECK: Supple, trachea midline. No JVD or lymphadenopathy. CARDIOVASCULAR: Regular rate and rhythm without murmurs, gallops, or rubs. RESPIRATORY: Breath sounds equal bilaterally. No accessory muscle use. GASTROINTESTINAL: Abdomen soft, non-tender, nondistended. MUSCULOSKELETAL: No cyanosis, or edema. BACK: Nontender without obvious deformity. NEURO EXAM: GCS: 15 Mental Status: The patient is alert and oriented to person, place, and time with normal speech. Cranial Nerves: Visual acuity intact bilaterally. Visual parikh normal in all quadrants. Pupils are round, reactive to light. Extraocular movements are intact without ptosis. Hearing is normal bilaterally. Voice is normal. Tongue protrudes midline and moves symmetrically. Laboratory Laboratory Tests Test 08/21/17 02:30 White Blood Count 19.6 Red Blood Count 4.71 Hemoglobin 14.0 Hematocrit 42.3 Mean Corpuscular Volume 89.7 Mean Corpuscular Hemoglobin 29.8 Mean Corpuscular Hemoglobin Concent 33.2 Red Cell Distribution Width 13.9 Platelet Count 124 Mean Platelet Volume 8.3 Neutrophils (%) (Auto) 60.5 Lymphocytes (%) (Auto) 29.1 Monocytes (%) (Auto) 8.0 Eosinophils (%) (Auto) 1.4 Basophils (%) (Auto) 1.0 Neutrophils # (Auto) 11.9 Lymphocytes # (Auto) 5.7 Monocytes # (Auto) 1.6 Eosinophils # (Auto) 0.3 Basophils # (Auto) 0.2 CBC Comment AUTO DIFF Differential Total Cells Counted 100 Neutrophils % (Manual) 65 Lymphocytes % 24 Monocytes % 8 Eosinophils % 3 Neutrophils # (Manual) 12.7 Nucleated Red Blood Cells 1 Differential Comment FINAL DIFF MANUAL Platelet Estimate LOW Platelet Morphology Comment NORMAL Prothrombin Time 10.9 Prothromb Time International Ratio 1.1 Activated Partial Thromboplast Time 23.3 D-Dimer Quantitative (PE/DVT) 0.65 Blood Urea Nitrogen 22 Creatinine 1.16 Random Glucose 126 Calcium Level 9.5 Magnesium Level 1.8 Sodium Level 137 Potassium Level 4.0 Chloride Level 101 Carbon Dioxide Level 25.9 Anion Gap 10 Estimat Glomerular Filtration Rate 49 Troponin I 8.81 Result Diagram: 08/21/1722908/21/17 0230 Course Caprini VTE Risk Assessment Caprini VTE Risk Assessment: Mod/High Risk (score >= 2) Caprini Risk Assessment Model Point Value = 1 Point Value = 2 Point Value = 3 Point Value = 5 Age 41-60 Minor surgery BMI > 25 kg/m2 Swollen legs Varicose veins or History of unexplained or recurrent spontaneous Oral contraceptives or hormone replacement Sepsis (< 1 month) Serious lung disease, including pneumonia (< 1 month) Abnormal pulmonary function Acute myocardial infarction Congestive heart failure (< 1 month) History of inflammatory bowel disease Medical patient at bed rest Age 61-74 Arthroscopic surgery Major open surgery (> 45 min) Laparoscopic surgery (> 45 min) Malignancy Confined to bed (> 72 hours) Immobilizing plaster cast Central venous access Age >= 75 History of VTE Family history of VTE Factor V Leiden Prothrombin [id number] Lupus anticoagulant Anticardiolipin antibodies Elevated serum homocysteine Heparin-induced thrombocytopenia Other congenital or acquired thrombophilia Stroke (< 1 month) Elective arthroplasty Hip, pelvis, or leg fracture Acute spinal cord injury (< 1 month) Prophylaxis Regimen Total Risk Factor Score Risk Level Prophylaxis Regimen 0-1 Low Early ambulation 2 Moderate Order ONE of the following: *Sequential Compression Device (SCD) *Heparin 5000 units SQ BID 3-4 Higher Order ONE of the following medications: *Heparin 5000 units SQ TID *Enoxaparin/Lovenox 40 mg SQ daily (WT < 150 kg, CrCl > 30 mL/min) *Enoxaparin/Lovenox 30 mg SQ daily (WT < 150 kg, CrCl > 10-29 mL/min) *Enoxaparin/Lovenox 30 mg SQ BID (WT < 150 kg, CrCl > 30 mL/min) AND/OR *Sequential Compression Device (SCD) 5 or more Highest Order ONE of the following medications: *Heparin 5000 units SQ TID (Preferred with Epidurals) *Enoxaparin/Lovenox 40 mg SQ daily (WT < 150 kg, CrCl > 30 mL/min) *Enoxaparin/Lovenox 30 mg SQ daily (WT < 150 kg, CrCl > 10-29 mL/min) *Enoxaparin/Lovenox 30 mg SQ BID (WT < 150 kg, CrCl > 30 mL/min) AND *Sequential Compression Device (SCD) Assessment and Plan Assessment and Plan Non-STEMI - Series of troponin - Series of EKGs - Heparin drip - Cardiology consultation - 2-D echo pending Rapid A. fib with RVR - Intolerance to Cardizem in the past - Esmolol drip - Metoprolol - Propafenon - Further per cardiology Hypertension - Metoprolol Sleep apnea - CPAP if indicated DVT GI prophylaxis - Teds SCDs - Heparin drip - Pepcid Critical Care: The total critical care time was 35 minutes. Time to perform other separately billable procedures was not included in the critical care time. Arden Story MD Aug 21, 2017 5:36 am
[2017-08-21] MEDS ORDERED: HEPARIN SODIUM - IV 10,000 UNITS/10 ML VIAL IV PUSH ONE (05:45)
[2017-08-21 06:35] LABS: HEMOGLOBIN 12.8 GM/DL (11.6-15.3); MEAN CELL VOLUME 88.9 FL (80.0-100.0); MEAN CORPUSCULAR HGB CONC 33.8 % (32.0-36.0); MEAN PLATELET VOLUME 8.5 FL (7.0-11.0); PLATELET COUNT 106 TH/MM3 (150-450); RED BLOOD COUNT 4.28 MIL/MM3 (4.00-5.30); RED CELL DISTRIBUTION WIDTH 13.9 % (11.6-17.2); WHITE BLOOD COUNT 14.5 TH/MM3 (4.0-11.0)
[2017-08-21] MEDS: SODIUM CHLOR 0.9% 1000 ML INJ 1,000 ML IV SCH ×2 (06:45→20:57)
[2017-08-21] MEDS: PROPAFENONE HCL 150 MG TAB PO SCH ×3 (06:50→20:56)
[2017-08-21 07:01] LABS: INTERNATIONAL NORMALIZED RATIO 1.1 RATIO; PROTHROMBIN TIME - PATIENT 10.9 SEC (9.8-11.6)
[2017-08-21] MEDS: CHOLECALCIFEROL (VIT D3) 1000 UNIT TAB PO SCH (08:28)
[2017-08-21] MEDS: SUCRALFATE 1 GM TAB PO SCH ×4 (08:28→20:56)
[2017-08-21] MEDS: SODIUM CHLORIDE 0.9% FLUSH 10 ML FLUSH IV FLUSH SCH ×2 (08:29→20:57)
[2017-08-21] MEDS: PANTOPRAZOLE SOD 40 MG DELAYED RELEASE TAB PO SCH ×2 (08:29→20:56)
[2017-08-21] MEDS: DOCUSATE SODIUM 50 MG/SENNA 8.6 MG TAB PO SCH ×2 (08:41→20:56)
[2017-08-21] MEDS: HEPARIN-D5W 25,000 U/250 ML 250 ML IV PRN (08:41)
[2017-08-21] MEDS: METOPROLOL TARTRATE 25 MG TAB PO SCH ×2 (08:42→20:56)
[2017-08-21] MEDS ORDERED: APIXABAN 5 MG TABLET PO SCH (09:00)
--- NOTE | 2017-08-21 10:53 | MB ---
cc: Duke Ross DO DATE: 08/21/2017 REASON FOR CONSULTATION: Elevated troponin, atrial fibrillation. HISTORY OF PRESENT ILLNESS: Kati Palacio is a pleasant 52-year-old female who presents with 4 days of chest pain. She states the chest pain has been coming on and appears with activity. She also notes that she went into atrial fibrillation at around 11:00 p.m. the night before as she can tell when this happens. She has had a difficult time with her atrial fibrillation with multiple ablations and difficulty with medications. In seeing her, she is currently hemodynamically stable with no chest pain. PAST MEDICAL HISTORY: 1. GERD. 2. Hypertension. 3. Atrial fibrillation. 4. Sleep apnea. 5. Hypertrophic cardiomyopathy. PAST SURGICAL HISTORY: 1. Cardiac catheterization x2 (June 20, 2015, and March 2017). Per the patient, these were relatively normal, although she did mention one of the doctors told her something about a small vessel with disease. 2. Atrial fibrillation ablation (2011, March 2017). 3. Right knee replacement. ALLERGIES: NO KNOWN DRUG ALLERGIES. He did have AN INTOLERANCE TO DILTIAZEM leading to prolonged pauses. MEDICATIONS: 1. Eliquis 5 mg b.i.d. 2. Propafenone 150 mg every 8 hours. 3. Crestor 10 mg Wednesday, Wednesday, Wednesday. 4. Metoprolol tartrate 25 mg b.i.d. 5. Hydrocodone/acetaminophen 5/325 every 8 hours as needed for pain. 6. Sucralfate 1 gram q.i.d. 7. Protonix 40 mg b.i.d. FAMILY HISTORY: Denies premature coronary artery disease or sudden cardiac within the family. SOCIAL HISTORY: Denies tobacco, alcohol or drug abuse. REVIEW OF SYSTEMS: Fourteen systems were reviewed including osteopathic pertinent positives and negatives above, otherwise negative. PHYSICAL EXAMINATION: VITAL SIGNS: Temperature 97.7, heart rate 63, blood pressure 115/79, respirations 18, pulse oximetry 100% on room air. GENERAL: The patient appears well in no acute distress. Alert, awake and oriented x3. HEENT: Extraocular muscles intact. Mucous membranes moist. NECK: Supple. No JVD at 45 degrees. No carotid bruits heard bilaterally. Carotid upstroke is brisk in nature. HEART: Regular rate and rhythm. Positive first and second heart sounds with no noted murmurs, gallops or rubs. LUNGS: Clear to auscultation bilaterally. No wheezes, rales or rhonchi. ABDOMEN: Soft, nontender, nondistended. No organomegaly noted. EXTREMITIES: Show no clubbing, cyanosis or edema. Femoral and distal pulses intact bilaterally. NEUROLOGIC: No focal deficits. SKIN: Warm, dry and intact. OSTEOPATHIC: No kyphoscoliosis, lordosis or paraspinal tender points. LABORATORY DATA: Hemoglobin 12.8, hematocrit 38.0, platelets 106. Potassium 4.0, BUN 22, creatinine 1.16. Troponin 8.81. Electrocardiogram (08/21/2017 at 02:18) Atrial fibrillation with rapid ventricular response, LVH with probable secondary ST-T wave changes. Further ST-T wave changes may be due to ischemia versus LVH. ASSESSMENT AND PLAN: 1. Non-ST elevation myocardial infarction, possible type 1 versus type 2. 2. Atrial fibrillation with rapid ventricular response which has been overall difficult to control. 3. Chest pain concerning for coronary insufficiency. 4. Mild acute kidney injury. RECOMMENDATIONS: 1. Ms. Palacio had an elevated troponin of 8 and, because of that as well as her symptoms, I believe that she should have a repeat cardiac catheterization. Apparently she had one around 4 months ago, but I would not feel comfortable with her leaving without a further evaluation. 2. Because of this, we will hold her Eliquis and place her on a heparin drip. 3. We will continue her on metoprolol tartrate as well as propafenone for her atrial fibrillation. 4. We will repeat an echocardiogram as this is a new ischemic insult. 5. Further recommendations will be made based on the hospital course. Thank you for allowing me to see Kati Palacio. If there are any questions, please do not hesitate to call. Duke Ross, DO [facility] , 10:25 AM , 10:51 AM
[2017-08-21] MEDS ORDERED: HEPARIN SODIUM - IV 10,000 UNITS/10 ML VIAL IV PUSH PRN ×2 (11:45)
[2017-08-21] MEDS: ACETAMINOPHEN/HYDROcodone 325 MG/5 MG TAB PO PRN (14:29)
[2017-08-21] MEDS: CHLORHEXIDINE GLUCONATE 2 % 1 PACK (2 CLOTHS) TOP SCH (20:57)
--- NOTE | 2017-08-21 21:29 | EKG ---
Date Performed: 08/21/2017 Time Performed: 02:18:23 PTAGE: 52 years EKG: ATRIAL FIBRILLATION WITH RAPID VENTRICULAR RESPONSE VOLTAGE CRITERIA FOR LVH MARKED ST DEPR ESSION, CONSIDER SUBENDOCARDIAL INJURY ABNORMAL ECG Compared to PREVIOUS TRACING , the patient is now in atrial fibrillation with a rapid ventricular res ponse. PREVIOUS TRACIN08/13/2017 19.20 DOCTOR: Doyle Rodriguez Interpretating Date/Time 08/21/2017 21:28:39
--- NOTE | 2017-08-21 21:29 | EKG ---
Date Performed: 08/21/2017 Time Performed: 11:04:07 PTAGE: 52 years EKG: SINUS BRADYCARDIA LEFT VENTRICULAR HYPERTROPHY AND ST-T CHANGE ABNORMAL ECG Compared to PREVIOUS TRACING , patient has converted from atrial fibrillation to sinus bradycardia. P REVIOUS TRACIN08/21/2017 02.18 DOCTOR: Doyle Rodriguez Interpretating Date/Time 08/21/2017 21:29:06
[2017-08-22] VITALS (18 sets, daily range): BP systolic 106–144; BP diastolic 60–86; PULSE 53–76; RESP 15–29; TEMP 97.8–98.7; O2SAT 96–99
[2017-08-22] MEDS: SODIUM CHLOR 0.9% 1000 ML INJ 1,000 ML IV SCH ×2 (04:23→16:00)
[2017-08-22] MEDS: HEPARIN-D5W 25,000 U/250 ML 250 ML IV PRN (04:25)
[2017-08-22 04:26] LABS: AUTOMATED NEUTROPHIL # 10.3 TH/MM3 (1.8-7.7); BASOPHIL # 0.3 TH/MM3 (0-0.2); EOSINOPHIL # 0.1 TH/MM3 (0-0.4); EOSINOPHIL % 0.8 % (0.0-4.0); HEMATOCRIT 39.9 % (35.0-46.0); HEMOGLOBIN 13.2 GM/DL (11.6-15.3); LYMPH % 23.5 % (9.0-44.0); LYMPHOCYTE # 3.9 TH/MM3 (1.0-4.8); MEAN CELL VOLUME 89.4 FL (80.0-100.0); MEAN CORPUSCULAR HEMOGLOBIN 29.6 PG (27.0-34.0); MEAN CORPUSCULAR HGB CONC 33.1 % (32.0-36.0); MEAN PLATELET VOLUME 8.8 FL (7.0-11.0); MONO % 11.1 % (0.0-8.0); MONOCYTE # 1.8 TH/MM3 (0-0.9); NEUT % 62.6 % (16.0-70.0); PLATELET COUNT 117 TH/MM3 (150-450); RED BLOOD COUNT 4.46 MIL/MM3 (4.00-5.30); RED CELL DISTRIBUTION WIDTH 13.9 % (11.6-17.2); WHITE BLOOD COUNT 16.4 TH/MM3 (4.0-11.0)
[2017-08-22 04:28] LABS: INTERNATIONAL NORMALIZED RATIO 1.1 RATIO; PROTHROMBIN TIME - PATIENT 11.3 SEC (9.8-11.6)
[2017-08-22 05:06] LABS: ALBUMIN 3.2 GM/DL (3.4-5.0); BICARBONATE 26.9 MEQ/L (21.0-32.0); BLOOD UREA NITROGEN 19 MG/DL (7-18); CHLORIDE 103 MEQ/L (98-107); CREATININE 1.08 MG/DL (0.50-1.00); GLOMERULAR FILTRATION RATE 53 ML/MIN (>89); GLUCOSE,RANDOM 90 MG/DL (74-106); MAGNESIUM 1.9 MG/DL (1.5-2.5); SODIUM (NA) 139 MEQ/L (136-145)
[2017-08-22 05:08] LABS: ALT (GPT) 30 U/L (10-53); AST (GOT) 103 U/L (15-37); PHOSPHORUS 3.4 MG/DL (2.5-4.9)
[2017-08-22 05:10] LABS: ALKALINE PHOSPHATASE 80 U/L (45-117); TOTAL BILIRUBIN ADULT 0.6 MG/DL (0.2-1.0); TOTAL PROTEIN 7.1 GM/DL (6.4-8.2)
[2017-08-22] MEDS: PROPAFENONE HCL 150 MG TAB PO SCH ×3 (05:30→21:13)
[2017-08-22] MEDS: CHOLECALCIFEROL (VIT D3) 1000 UNIT TAB PO SCH (08:24)
[2017-08-22] MEDS: PANTOPRAZOLE SOD 40 MG DELAYED RELEASE TAB PO SCH ×2 (08:25→21:09)
[2017-08-22] MEDS: DOCUSATE SODIUM 50 MG/SENNA 8.6 MG TAB PO SCH ×2 (08:25→21:00)
[2017-08-22] MEDS: SUCRALFATE 1 GM TAB PO SCH ×4 (08:25→21:09)
[2017-08-22] MEDS: SODIUM CHLORIDE 0.9% FLUSH 10 ML FLUSH IV FLUSH SCH ×2 (08:29→21:09)
[2017-08-22] MEDS: METOPROLOL TARTRATE 25 MG TAB PO SCH ×2 (09:00→21:00)
--- NOTE | 2017-08-22 11:27 | PD.CARD.PN ---
Subjective Subjective Remarks Doing well overall Does get mild pressure when out of bed moving, otherwise no complaints Objective Medications Current Medications Medications (Trade) Dose Ordered Sig/Cam Route Start Time Stop Time Status Last Admin (NS Flush) 2 ml UNSCH PRN IV FLUSH 08/21/17 02:30 (Lopressor Inj) 5 mg Q5M PRN IV PUSH 08/21/17 02:45 08/21/17 03:38 Esmolol HCl/ Sodium Chloride 250 ml @ 0 mls/hr TITRATE PRN IV 08/21/17 04:00 08/21/17 04:31 (Brevibloc Bolus Inj) 50 mg BOLUS PRN IV PUSH 08/21/17 04:00 (Vitamin D3) 3,000 units DAILY PO 08/21/17 09:00 08/22/17 08:24 ([place] 5-325 Mg) 1 tab Q8HR PRN PO 08/21/17 05:30 08/21/17 14:29 (Lopressor) 25 mg BID PO 08/21/17 09:00 (Protonix) 40 mg BID PO 08/21/17 09:00 08/22/17 08:25 (Rythmol) 150 mg Q8H PO 08/21/17 06:00 08/22/17 05:30 (Carafate) 1 gm QID PO 08/21/17 09:00 08/22/17 08:25 Non-Formulary Medication 10 mg MON,WED,FRI PO 08/21/17 05:30 Sodium Chloride 1,000 ml @ 84 mls/hr [id number] IV 08/21/17 05:28 08/22/17 04:23 (NS Flush) 2 ml UNSCH PRN IV FLUSH 08/21/17 05:30 (NS Flush) 2 ml BID IV FLUSH 08/21/17 09:00 08/22/17 08:29 (Tylenol) 650 mg Q6H PRN PO 08/21/17 05:30 (Restoril) 15 mg HS PRN PO 08/21/17 05:30 Miscellaneous Information 1 Q361D XX 08/21/17 05:30 08/21/17 05:30 (Chlorhexidine 2% Cloth) 3 pack Taper DAILY@04 TOP 08/22/17 04:00 08/18/18 03:59 08/21/17 20:57 (Chlorhexidine 2% Cloth) 3 pack UNSCH PRN TOP 08/21/17 05:30 (Marlena-Colace) 1 tab BID PO 08/21/17 09:00 (Milk Of Magnesia Liq) 30 ml Q12H PRN PO 08/21/17 05:30 (Senokot) 17.2 mg Q12H PRN PO 08/21/17 05:30 (Dulcolax Supp) 10 mg DAILY PRN RECTAL 08/21/17 05:30 (Lactulose Liq) 30 ml DAILY PRN PO 08/21/17 05:30 (Heparin Inj) 5,000 units UNSCH PRN IV PUSH 08/21/17 11:45 (Heparin Inj) 2,500 units UNSCH PRN IV PUSH 08/21/17 11:45 Heparin Sodium/ Dextrose 250 ml @ 10 mls/hr TITRATE PRN IV 08/21/17 05:45 08/22/17 04:25 Vital Signs / I&O Vital Signs Date Time Temp Pulse Resp B/P (MAP) Pulse Ox O2 Delivery O2 Flow Rate FiO2 08/22/17 08:00 62 08/22/17 08:00 97.8 62 19 135/79 (97) 97 08/22/17 07:00 61 08/22/17 06:00 65 08/22/17 04:00 56 08/22/17 04:00 97.9 56 17 131/60 (83) 96 08/22/17 02:00 70 08/22/17 00:00 69 08/22/17 00:00 98.4 62 15 144/78 (100) 99 08/21/17 22:00 54 08/21/17 20:00 61 08/21/17 20:00 97.7 61 16 140/82 (101) 99 08/21/17 18:00 59 08/21/17 17:00 69 08/21/17 16:00 64 08/21/17 16:00 98.0 64 14 170/93 (118) 99 08/21/17 15:00 54 08/21/17 14:00 73 08/21/17 13:00 56 08/21/17 12:00 57 08/21/17 12:00 98.1 65 14 142/87 (105) 98 I/O 08/21/17 08/21/17 08/21/17 08/22/17 08/22/17 08/22/17 07:00 15:00 23:00 07:00 15:00 23:00 Intake Total 0 ml 1600 ml 1970 ml Output Total 0 ml Balance 0 ml 1600 ml 1970 ml Intake Oral 0 ml 600 ml 720 ml IV Total 1000 ml 1250 ml Output Urine Total 0 ml # Voids 3 7 # Bowel Movements 0 0 Physical Exam GENERAL: NAD, AAOx3 SKIN: Warm and dry. HEAD: Atraumatic. Normocephalic. EYES: Pupils equal and round. No scleral icterus. No injection or drainage. ENT: No nasal bleeding or discharge. Mucous membranes pink and moist. NECK: Trachea midline. No JVD. CARDIOVASCULAR: Regular rate and rhythm. RESPIRATORY: No accessory muscle use. Clear to auscultation. Breath sounds equal bilaterally. GASTROINTESTINAL: Abdomen soft, non-tender, nondistended. Hepatic and splenic margins not palpable. MUSCULOSKELETAL: Extremities without clubbing, cyanosis, or edema. No obvious deformities. NEUROLOGICAL: Awake and alert. No obvious cranial nerve deficits. Motor grossly within normal limits. Five out of 5 muscle strength in the arms and legs. Normal speech. PSYCHIATRIC: Appropriate mood and affect; insight and judgment normal. Laboratory Laboratory Tests Test 08/21/17 11:35 08/21/17 13:47 08/21/17 20:41 08/22/17 03:10 Troponin I 19.80 NG/ML GREATER THAN 40.00 NG/ML Activated Partial Thromboplast Time 51.5 SEC 39.6 SEC 42.7 SEC White Blood Count 16.4 TH/MM3 Red Blood Count 4.46 MIL/MM3 Hemoglobin 13.2 GM/DL Hematocrit 39.9 % Mean Corpuscular Volume 89.4 FL Mean Corpuscular Hemoglobin 29.6 PG Mean Corpuscular Hemoglobin Concent 33.1 % Red Cell Distribution Width 13.9 % Platelet Count 117 TH/MM3 Mean Platelet Volume 8.8 FL Neutrophils (%) (Auto) 62.6 % Lymphocytes (%) (Auto) 23.5 % Monocytes (%) (Auto) 11.1 % Eosinophils (%) (Auto) 0.8 % Basophils (%) (Auto) 2.0 % Neutrophils # (Auto) 10.3 TH/MM3 Lymphocytes # (Auto) 3.9 TH/MM3 Monocytes # (Auto) 1.8 TH/MM3 Eosinophils # (Auto) 0.1 TH/MM3 Basophils # (Auto) 0.3 TH/MM3 CBC Comment DIFF FINAL Differential Comment Prothrombin Time 11.3 SEC Prothromb Time International Ratio 1.1 RATIO Blood Urea Nitrogen 19 MG/DL Creatinine 1.08 MG/DL Random Glucose 90 MG/DL Total Protein 7.1 GM/DL Albumin 3.2 GM/DL Calcium Level 9.0 MG/DL Phosphorus Level 3.4 MG/DL Magnesium Level 1.9 MG/DL Alkaline Phosphatase 80 U/L Aspartate Amino Transf (AST/SGOT) 103 U/L Alanine Aminotransferase (ALT/SGPT) 30 U/L Total Bilirubin 0.6 MG/DL Sodium Level 139 MEQ/L Potassium Level 3.8 MEQ/L Chloride Level 103 MEQ/L Carbon Dioxide Level 26.9 MEQ/L Anion Gap 9 MEQ/L Estimat Glomerular Filtration Rate 53 ML/MIN Assessment and Plan Problem List: (1) NSTEMI (non-ST elevated myocardial infarction) ICD Codes: I21.4 - Non-ST elevation (NSTEMI) myocardial infarction (2) Atrial fibrillation with RVR ICD Codes: I48.91 - Unspecified atrial fibrillation Status: Acute (3) HLD (hyperlipidemia) ICD Codes: E78.5 - Hyperlipidemia, unspecified Status: Chronic (4) HTN (hypertension) ICD Codes: I10 - Essential (primary) hypertension Status: Chronic (5) Paroxysmal atrial fibrillation ICD Codes: I48.0 - Paroxysmal atrial fibrillation Status: Acute (6) Chest pain ICD Codes: R07.9 - Chest pain, unspecified Status: Acute Assessment and Plan 1) NSTEMI Con't heparin drip Plan for cardiac catheterization tomorrow morning NPO after midnight Risks, benefits and alternatives discussed with her If something changes overnight, will consider more urgent catheterization 2) Afib Currently sinus rhythm Eliquis on hold for catheterization BB/Propafenone 3) 2D echo pending Duke Ross DO Aug 22, 2017 11:27
--- NOTE | 2017-08-22 17:40 | HHI.CCPN ---
Subjective Remarks/Hospital Course Hospital Course: 52-year-old female presents with a four-day history of chest pain. She states that she has been in atrial fibrillation since about 11 PM. She has a history of atrial fibrillation with rapid ventricular response. She was admitted to the hospital 08/13 for A. fib with RVR. She is on Eliquis. She was treated with a Cardizem bolus and drip. The next morning, she developed bradycardia followed by a 6 second episode of asystole. Therefore, cardiology recommended that Cardizem be avoided. She rates her pain at 10/10 and reports no known modifying factors. When I came to examine the patient she was comfortably sleeping in the bed with no complaints at that time. subjective: 08/22: complains of a "funny feeling" down her left arm, like "when you hit your funny bone" which gets worse with exertion and better at rest. Trops continue to uptrend. remains on heparin drip. likely plan to [facility] in AM. denies chest pain , nausea, shortness of breath. otherwise no complaints. ROS otherwise negative. Objective Vital Signs Date Time Temp Pulse Resp B/P (MAP) Pulse Ox O2 Delivery O2 Flow Rate FiO2 08/22/17 17:00 68 08/22/17 16:00 98.0 23 140/86 (104) 99 08/21/17 01:58 Room Air Intake and Output 08/22/17 08/22/17 08/23/17 08:00 16:00 00:00 Intake Total 1970 ml Balance 1970 ml Result Diagram: 08/22/1730908/22/17309 Objective Remarks GENERAL: middle-aged female, lying in bed. SKIN: Warm and dry. HEAD: Normocephalic. EYES: No scleral icterus. No injection or drainage. NECK: Supple, trachea midline. no JVD. CARDIOVASCULAR: Regular rate and rhythm. extremities are warm and well perfused. RESPIRATORY: Breath sounds equal bilaterally. No accessory muscle use. GASTROINTESTINAL: Abdomen soft, non-tender, nondistended. MUSCULOSKELETAL: No cyanosis, or edema. NEURO EXAM: RASS 0. GCS 15. no focal deficits. A/P Assessment and Plan Assessment: 52yF with NSTEMI and afib. will keep in ICU given rising troponins until after LHC. After cath, as long as any ischemia is intervened upon, she can leave ICU. high risk for decompensation with rising troponins. Non-STEMI - Series of troponin - Series of EKGs - Heparin drip - Cardiology consultation - 2-D echo pending Rapid A. fib with RVR - Intolerance to Cardizem in the past - Metoprolol - Propafenone - Further per cardiology Hypertension - Metoprolol Sleep apnea - CPAP if indicated DVT GI prophylaxis - Teds SCDs - Heparin drip - Wander Vora MD Aug 22, 2017 17:39
[2017-08-23] VITALS (22 sets, daily range): BP systolic 90–122; BP diastolic 55–91; PULSE 61–143; RESP 14–26; TEMP 97.7–98.6; O2SAT 94–99
[2017-08-23] MEDS: HEPARIN-D5W 25,000 U/250 ML 250 ML IV PRN (02:13)
[2017-08-23] MEDS: CHLORHEXIDINE GLUCONATE 2 % 1 PACK (2 CLOTHS) TOP SCH (04:00)
[2017-08-23] MEDS: SODIUM CHLOR 0.9% 1000 ML INJ 1,000 ML IV SCH ×2 (04:36→16:18)
[2017-08-23] MEDS: METOPROLOL TARTRATE 5 MG/5 ML VIAL IV PUSH PRN ×3 (05:01→05:12)
[2017-08-23] MEDS: PROPAFENONE HCL 150 MG TAB PO SCH ×3 (05:48→20:19)
[2017-08-23] MEDS ORDERED: ESMOLOL DRIP INJ PREMIX 250 ML IV PRN (06:15)
[2017-08-23] MEDS ORDERED: LORazepam 2 MG/ML VIAL IV PUSH ONE (06:15)
[2017-08-23] MEDS ORDERED: NITROGLYCERIN INJ 5 ML ONE (07:25)
[2017-08-23] MEDS ORDERED: VERAPAMIL HCL 5 MG/2 ML VIAL ONE (07:25)
[2017-08-23] MEDS ORDERED: HEPARIN-NS/PF FLUSH BAG 2,000 ML IV FLUSH ONE (07:25)
[2017-08-23] MEDS ORDERED: HEPARIN SODIUM - IV 10,000 UNITS/10 ML VIAL ONE (07:25)
[2017-08-23] MEDS ORDERED: MIDAZOLAM HCL 2 MG/2 ML VIAL ONE (07:41)
--- NOTE | 2017-08-23 08:48 | CATHPROC ---
[facility] HIS Report Study Information Study Number Admission Scheduled Start Study Start [id number] Aug 21 2017 4:00AM 08/22/2017 Aug 23 2017 7:23AM [place] Service Cardiac Catheterization Admit Source Facility Department Emergency department [facility] - Methodologist Physician and Clinical Staff Initial Duke Zhang Stone Setter Apprentice Sissy Bolivar RN Recorder Hailey Werner BSN Scrub Hostrory, Stephen,RT(R) Procedures Performed Procedure Location (Site) Vessel Name Coronary Angiograms LCA Left Coronary Coronary Angiograms RCA Right Coronary L Heart Cath Wire insertion Fem Art (right) Femoral Art Equipment Time Mess Attendant Crew Description Size Mfg Part Number Used/Scraped TRANSDUCER, TRUWAVE [id number] 07:38 [employer] * Used W/STOCKCOCK *[id number] INTRODUCER SET, 08:08 [employer] FR 5 [id number] *[id number] Used MICROPUNCTURE, STIFFENED [id number] *[id number] [id number] *[id number] 07:38 [employer] PACK, CCL CUSTOM * Used *[id number] 07:38 [employer] SUPPORT, ARTERIAL ADULT [id number] *[id number] Used [id number] 07:38 [employer] WIRE, EXCHANGE 260CM 3MMJ 260CM Used *[id number] 07:38 NAMIC MANIFOLD, 4 PORT * Used *[id number] 07:38 [employer]COMED OMNIPAQUE, 350 MG, 150ML 150ML [id number] Used [id number] 07:38 [employer] BLANKET,WARM AIR CCL * Used *[id number] 08:07 [employer]UM[employer] SHEATH, FR5 TERUMO (10CM) FR 5 Used *[id number] SHEATH, FR6 TRANSRADIAL [id number] 07:38 [employer]UM[employer] MEDICAL FR 6 Used SLENDER 10CM *[id number] Equipment Model, Serial, Lot Number and Expiration Data Description Model Number Serial Number Lot Number Expiration Date INTRODUCER SET, [id number] 06-30-2020 MICROPUNCTURE, STIFFENED History: Current Medications Medication Dosage/Unit Route Frequency Last Date/Time Taken Statins (any) History: Allergies Allergy Reaction diltiazem bradycardia to asystole History: Risk Factors Family History of Hypertension Dyslipidemia Previous IN Previous Heart Failure Premature CAD Yes Yes No No No Prior Valve Prior PCI Prior CABG Surgery No No No Cerebrovascular Peripheral Artery Chronic Lung On Dialysis Diabetes Disease Disease Disease No No No No No History: Stress Tests Stress or Imaging Studies Performed No History: Arrhythmias Selection Items Atrial fibrillation History: Other Current Smoker Method Quit Packs a Day Years Used Pack Years No Cigarettes 12 Years Ago 1 30 30 Labs Hgb (g/dl) Hct (%) WBC (l/cumm) Platelets (thousands) 11.60-17.00 35.00-51.00 4.00-11.00 150.00-450.00 13.2 39.9 16.4 117 Glucose (mg/dl) BUN (mg/dl) Creatinine (mg/dl) BUN:Creatinine (1:x) 74.00-106.00 7.00-18.00 0.50-1.30 10.00-20.00 90 19 1.0 19 Na (meq/l) K (meq/l) 136.00-145.00 3.50-5.10 139 3.8 INR (PTT:PT) 0.90-1.10 1.1 Troponin I (ng/ml) Troponin T (ng/ml) 0.02-0.05 0.40-2.10 19.8 40 Medication Medication Total Dose (Bolus/Oral) Medication Total Dosage/Unit 1% XYLOCAINE 13 mL BREVIBLOC 50 mcg/kg/min FENTANYL 50 mcg VERSED 1 mg Medications (Bolus/Oral) Medication Time Given Dosage/Unit Administered By Reason BREVIBLOC 08/23/2017 7:20:48 AM 50 mcg/kg/min Patient arrived on 50 mcg/kg/min BREVIBLOC in Right Groin via Peripheral IV. Pump/Drip Flow = 29.7 ml /hr using D5W with a concentration of 2500 mg in 250 ml. 1% XYLOCAINE 08/23/2017 7:59:19 AM 3 mL Duke Ross 3 mL 1% XYLOCAINE given in lab by Duke Ross in Right Radial via Subcutaneous. Ordered by Duke Rodrigues VERSED 08/23/2017 7:59:34 AM 0.5 mg Sissy Bolivar 0.5 mg VERSED given in lab by Sissy Bolivar, RN in Left Antecubital via Peripheral IV. Ordered by Duke Tovar FENTANYL 08/23/2017 8:00:04 AM 25 mcg Sissy Bolivar 25 mcg FENTANYL given in lab by Sissy Bolivar RN in Left Antecubital via Peripheral IV. Ordered by Duke Ross 1% XYLOCAINE 08/23/2017 8:07:05 AM 5 mL Duke Ross 5 mL 1% XYLOCAINE given in lab by Duke Ross in Right Groin via Subcutaneous. Ordered by Duke Quispe VERSED 08/23/2017 8:08:57 AM 0.5 mg Sissy Bolivar 0.5 mg VERSED given in lab by Sissy Bolivar RN in Left Antecubital via Peripheral IV. Ordered by Duke Tovar FENTANYL 08/23/2017 8:09:29 AM 25 mcg Sissy Bolivar 25 mcg FENTANYL given in lab by Sissy Bolivar RN in Left Antecubital via Peripheral IV. Ordered by Duke Ross 1% XYLOCAINE 08/23/2017 8:10:22 AM 5 mL Sissy Bolivar 5 mL 1% XYLOCAINE given in lab by Sissy Bolivar RN in Right Groin via Subcutaneous. Ordered by Duke Quispe Medication (Drip) Medication Time Given Dosage/Unit Concentration/Unit Diluent (ml) Solution HEPARIN DRIP STOPPED 08/23/2017 7:10:50 AM 1200 units/hr 0 D5W 1200 units/hr HEPARIN DRIP STOPPED by Sissy Bolivar RN. Pump/Drip Flow = 0 ml/hr using D5W. Ordere d by Duke Ross IV Solutions 08/23/2017 7:25:10 AM 50 mL (IV) NaCl .9 IV Solutions given in lab by Sissy Bolivar RN in Left Antecubital via Peripheral IV. Pump/Drip Tutu w using NaCl .9. Ordered by Duke Ross Initial Case Assessment Cardiovascular HR Rhythm NIBP Chest Pain 124 st 131/94 0 Edema Present Skin color Skin None Normal Warm Dry Circulatory - Right Pulses Dorsalis Pedis Femoral 2 2 Scale (0,1,2,3,4,d) Circulatory - Left Pulses Dorsalis Pedis Femoral 2 2 Scale (0,1,2,3,4,d) Circulatory - Lower Extremities Color Lower Right Color Lower Left Normal Normal Neurological State Oriented to time-place- Alert Moves all extremities person Respiration - General Respiration Rate SpO2 (%) O2 (lpm) (B/min) 12 100 2 Chronological Log Time Study Chronological Log 1200 units/hr HEPARIN DRIP STOPPED by Sissy Bolivar RN. Pump/Drip Flow = 0 ml/hr using D5W. Ordered by 7:10:50 Duke Ross 7:18:09 Patient arrived via Bed. 7:18:16 Patient Name, D.O.B, / Armband Verified By R.N. 7:18:21 Consent signed by the physician and the patient and verified by the Methodologist staff. 7:20:27 Patient has been NPO for More than 6Hrs. 7:20:30 Skin Breakdown- none per patient Patient arrived on 50 mcg/kg/min BREVIBLOC in Right Groin via Peripheral IV. Pump/Drip Flow = 2 9.7 ml/hr using D5W 7:20:48 with a concentration of 2500 mg in 250 ml. 7:22:30 Allens test performed on the right radial and ulnar artery. Vitals capture started with the following parameters, Patient=Adult, Interval=5 min, Initial Pr rtmcup=179 mmHg, 7:24:05 Deflation Rate=5 mmHg, Cuff placed on Right Ankle 7:24:32 Pre-op and post- op instructions given; patient acknowledges understanding of instructions. IV Solutions given in lab by Sissy Bolivar, JOELLE in Left Antecubital via Peripheral IV. Pump/Dr ip Flow using NaCl .9. 7:25:10 Ordered by Duke Ross 7:25:52 A # 20 IV was noted in the Antecubital (left). Grade = 0 7:25:56 VQ=199 bpm, BFWF=484/105 mmhg, SpO2=99.0 %, Resp=12 B/min, Pain=0, Tejas=10, Alcocer=2 7:28:41 Verbal Stimulation=2 Physical Stimulation=2 Airway=2 Respiration=2 TOTAL=8. (0=absent, 1=jimenez ited, 2=present) 7:29:33 RW=705 bpm, HBTA=233/94 mmhg, SpO2=98.0 %, Resp=19 B/min, Pain=0, Tejas=10, Alcocer=2 7:31:12 Right Radial and groin(s) prepped with 2% chlorhexidine, and draped after a 3 min. waiting t alhaji. 7:32:46 Reference ECG taken 7:33:25 History and physical on the chart or being dictated. Assessment: Initial Case, VS=996 BPM, Rhythm=st, CLDV=789/94 mmhg, Chest Pain=0, Edema=None, Col or=Normal, Skin = Warm, Dry Right Pulses: Jena Ped=2, Femoral=2 Left Pulses: Jean Ped=2, Femoral=2 7:33:29 Lower Right Extremities: Color=Normal Lower Left Extremities: Color=Normal Neurological: State=Alert, Ox3, SANTANA Respiration: Resp=12 B/min, XuU7=055 %, O2=2 lpm 7:34:36 UL=992 bpm, OIZZ=179/92 mmhg, WtF7=534.0 %, Resp=13 B/min, Pain=0, Tejas=10, Alcocer=2 7:39:33 BA=644 bpm, FMFL=163/101 mmhg, Resp=11 B/min, Pain=0, Tejas=10, Alcocer=2 7:40:15 MD paged 7:40:19 Pressure channel 1 zeroed. 7:41:21 MD responded 7:44:40 AU=951 bpm, NUIG=463/73 mmhg, SpO2=98.0 %, Resp=12 B/min, Pain=0, Tejas=10, Alcocer=2 7:49:37 MA=922 bpm, QEHH=502/88 mmhg, SpO2=99.0 %, Resp=13 B/min, Pain=0, Tejas=10, Alcocer=2 7:53:48 MD arrived. 7:55:19 AQ=898 bpm, KSPC=231/98 mmhg, Resp=13 B/min, Pain=0, Tejas=10, Alcocer=2 Time Out. Correct patient, correct procedure, correct physician, power injector not loaded with contrast with surgical 7:58:58 team present. Time Out Concurred by MD and individual staff in procedure. 7:59:08 Case Start 3 mL 1% XYLOCAINE given in lab by Duke Ross in Right Radial via Subcutaneous. Ordered by Cody 7:59:19 [facility] Hall. 0.5 mg VERSED given in lab by OsmelSissy bob RN in Left Antecubital via Peripheral IV. Ordered by Duke Ross 7:59:34 G. 7:59:37 EB=977 bpm, ZEBE=027/78 mmhg, Resp=13 B/min, Pain=0, Tejas=10, Alcocer=2 25 mcg FENTANYL given in lab by Sissy Bolivar RN in Left Antecubital via Peripheral IV. Order ed by Cody, 8:00:04 Duke Hall. 8:04:36 PI=920 bpm, TCMB=684/97 mmhg, SmR6=271 %, Resp=12 B/min, Pain=0, Tejas=10, Alcocer=2 8:06:32 Radial access attempted; converted to groin access 5 mL 1% XYLOCAINE given in lab by Duke Ross in Right Groin via Subcutaneous. Ordered michelle Ross, 8:07:05 [facility] Hall. 0.5 mg VERSED given in lab by Sissy Bolivar RN in Left Antecubital via Peripheral IV. Ordered by Duke Ross 8:08:57 G. 25 mcg FENTANYL given in lab by Sissy Bolivar RN in Left Antecubital via Peripheral IV. Order ed by Cody, 8:09:29 Duke Hall. 8:09:35 AF=624 bpm, ZETB=785/102 mmhg, VpX1=528.0 %, Resp=13 B/min, Pain=0, Tejas=10, Alcocer=2 5 mL 1% XYLOCAINE given in lab by Sissy Bolivar RN in Right Groin via Subcutaneous. Ordered michelle Ross, 8:10:22 [facility] Hall. 8:11:49 Access site was Right Femoral Artery. A INTRODUCER SET, MICROPUNCTURE, STIFFENED FR 5 was advanced into the Fem Art (right) using the 8:11:57 Percutaneous technique. A SHEATH, FR5 TERUMO (10CM) FR 5 was exchanged in the Fem Art (right). This was necessary in ord er to 8:12:20 accomodate a larger catheter. Recorded Pressure: Ao, GU=510, Condition=Condition 1 8:13:21 (Aorta) Ao 107/70/86 8:13:31 An injection in the Fem Art (right) was made through the SHEATH, FR5 TERUMO (10CM) FR 5. A JR 4.0 INFINITI CATHETER FR 5 was advanced over a wire. OMNIPAQUE, 350 MG, 150ML 150ML was us ed for 8:14:00 injections. 8:14:41 RE=441 bpm, CGKD=617/82 mmhg, SpO2=97 %, Resp=19 B/min, Pain=0, Tejas=10, Alcocer=2 Recorded Pressure: LV, PG=325, Condition=Condition 1 8:15:54 (Left Ventricle) LV 114/2/9 Recorded Pressure: LV, Ao, JE=979, Condition=Condition 1 8:16:05 (Left Ventricle) LV 119/-3/19, (Aorta) Ao 125/83/105 8:16:41 The RCA was injected and visualized at various angles. OMNIPAQUE, 350 MG, 150ML 150ML used . After removing the current catheter a JL 4.0 INFINITI CATHETER FR 5 was advanced over a WIRE, E XCHANGE 260CM 8:17:04 3MMJ 260CM. 8:19:29 The LCA was injected and visualized at various angles. OMNIPAQUE, 350 MG, 150ML 150ML used . 8:19:38 YS=227 bpm, ROND=219/74 mmhg, SpO2=95.0 %, Resp=13 B/min, Pain=0, Tejas=10, Alcocer=2 8:24:37 JN=483 bpm, QWDK=041/80 mmhg, SpO2=97.0 %, Resp=14 B/min, Pain=0, Tejas=10, Alcocer=2 8:25:09 A WIRE, EXCHANGE 260CM 3MMJ 260CM was inserted via Fem Art (right). 8:25:24 Catheter was removed 8:: Activated Clotting Time Drawn 8:28:24 ACT (Normal Range 90-180) = 115 8:29:40 KB=836 bpm, CGLC=088/65 mmhg, Resp=19 B/min, Pain=0, Tejas=10, Alcocer=2 8:29:44 Sheath removed; pressure applied to access site. 8:30:29 Case End 8:30:33 No case complications noted. 8:30:35 Cine recording checked. 8:30:37 Bedside Report will be given. 8:30:41 A Left Heart Cath was performed. 8:34:41 AG=707 bpm, DFUO=514/66 mmhg, SpO2=96.0 %, Resp=11 B/min, Pain=0, Tejas=10, Alcocer=2 8:39:44 SW=772 bpm, NUXH=939/60 mmhg, Resp=12 B/min, Pain=0, Tejas=10, Alcocer=2 8:44:43 IS=530 bpm, KORE=918/71 mmhg, Resp=12 B/min, Pain=0, Tejas=10, Alcocer=2 8:45:25 Sterile dressing applied to site 8:50:18 [facility] - Contrast Media Used In Study Contrast Total Opened (mL) Total Used (mL) Total Wasted (mL) Omnipaque 35 35 0 End Study - Maximum Contrast Load Max Contrast Load (mL) 495.0 End Study - Radiation Exposure Fluoro Time (minutes) 1.8 End Study - Sheaths Sheaths Pulled By Sheath Hold Time (min) Stephen Rangel 15 End Study - Patient Disposition Complications Transferred To Critical Care Bed
[2017-08-23] MEDS: DOCUSATE SODIUM 50 MG/SENNA 8.6 MG TAB PO SCH ×2 (09:00→20:20)
[2017-08-23] MEDS: ACETAMINOPHEN/HYDROcodone 325 MG/5 MG TAB PO PRN (09:28)
[2017-08-23] MEDS: PANTOPRAZOLE SOD 40 MG DELAYED RELEASE TAB PO SCH ×2 (09:28→20:20)
[2017-08-23] MEDS: SUCRALFATE 1 GM TAB PO SCH ×4 (09:28→20:19)
[2017-08-23] MEDS: CHOLECALCIFEROL (VIT D3) 1000 UNIT TAB PO SCH (09:28)
[2017-08-23] MEDS: SODIUM CHLORIDE 0.9% FLUSH 10 ML FLUSH IV FLUSH SCH ×2 (09:29→20:20)
--- NOTE | 2017-08-23 09:35 | MA ---
cc: Duke Ross DO DATE: 08/23/2017 PROCEDURE: Left heart catheterization, coronary angiogram, moderate sedation 30 minutes PREPROCEDURE DIAGNOSIS: NSTEMI, chest pain. POSTPROCEDURE DIAGNOSIS: Distal left circumflex occlusion (1 mm vessel). MEDICATIONS: Versed 1 mg, fentanyl 50 mcg. CONTRAST USED: 35 mL FLUOROSCOPY: 1.8 minutes. MODERATE SEDATION: 30 minutes. ESTIMATED BLOOD LOSS: 10 mL. PROCEDURAL SUMMARY: Kati Palacio is a pleasant 52-year-old female who presented to [facility] Emergency Room due to chest pain, as well as atrial fibrillation with rapid ventricular response. While here, she was found to have an elevated troponin and recommended cardiac catheterization. Risks, benefits and alternatives were explained to her and she consented as such. She was brought to the lab and I attempted to get right radial access, but was unable to and so right femoral was accessed using a modified Seldinger technique and placement of a 5-Georgian sheath. This was easily aspirated and flushed. A JR4 was advanced over a J-wire to the ascending aorta and across the aortic valve for measurement of left ventricular pressure. This was pulled back across the aortic valve showing no significant gradient of aortic stenosis. JR4 was then exchanged out for a JL4 which was used for selective angiography of the left coronary artery system. JL4 was removed over a J wire. An ACT was drawn and was within acceptable range and so the sheath was pulled and pressure held for hemostasis. The patient left the [facility] in a guarded condition. FINDINGS: Left main: A normal sized vessel with 10% ostial stenosis. It bifurcates into an LAD and circumflex. LAD: A normal sized vessel with mild luminal irregularities throughout the proximal portion. The proximal to mid portion has a 30% long tubular lesion. It gives off 1 major diagonal which has 30% ostial stenosis. Ramus: Overall small vessel with no significant disease. Left circumflex: Moderate to large sized vessel. It gives off 1 large obtuse marginal which then has an upper and lower branch. Distal to this, it gives off a small obtuse marginal which has diffuse 50% disease. After this, it looks like the left circumflex has 100% occlusion and an overall small vessel of around 1 mm. There are some uqzl-dq-yunw collaterals which do fill this distal vessel. Right coronary artery: A normal vessel which tapers down distally. It appears to be probably a small codominant vessel. No significant disease noted. LVEDP 19. IMPRESSIONS: 1. NSTEMI. 2. Coronary artery disease with distal occlusion of the left circumflex in an overall small vessel. 3. Atrial fibrillation with rapid ventricular response. 4. Per the patient, she apparently had takotsubo in March when she was in [place]. RECOMMENDATIONS: 1. Ms. Palacio was found to have no significant lesions that could be intervened on. Part of her episode may be due to occlusion of the distal left circumflex, which overall is a small vessel at around 1 mm and is unable to be angioplastied or stented. She will continue on medical management. 2. As of this morning, she is back in atrial fibrillation with rapid ventricular response and we will attempt to increase her medications to get her heart rate controlled. 3. We will check a 2D echo to look at her overall left ventricular function, cardiac structure and possible valvopathies. 4. She will be restarted on her Eliquis tomorrow morning. 5. We will consider PE as a possible another cause of her NSTEMI, although she has been on her Eliquis for some time, so much more less like likely. Thank you for allowing me to see Kati Palacio. If you have any questions, please do not hesitate to call. Duke Ross, DO VGP/DL , 09:05 AM , 09:34 AM
[2017-08-23] MEDS: METOPROLOL TARTRATE 25 MG TAB PO SCH ×2 (12:00→17:03)
[2017-08-23] MEDS ORDERED: IOHEXOL 350 MG/ML 50 ML BTL (for Cath Lab) OTHER ONE (13:42)
--- NOTE | 2017-08-23 17:37 | ECHRPT ---
Indication: afib/aflutter CONCLUSIONS The left ventricular systolic function is low normal with an estimated ejection fraction in the rang e of 50- 55%. There is assymetric septal hypertrophy. Normal left ventricular size. The left atrial size is mildly dilated. Fcbr-wz-hcgujcbb mitral valve regurgitation. There is mild tricuspid valve regurgitation. BP: 117 / 79 HR: 63 Rhythm: Sinus MEASUREMENTS (Male / Female) Normal Values Technical Quality:Fair 2D ECHO LV Diastolic Diameter PLAX 4.5 cm 4.2 - 5.9 / 3.9 - 5.3 cm LV Systolic Diameter PLAX 3.3 cm IVS Diastolic Thickness 1.7 cm 0.6 - 1.0 / 0.6 - 0.9 cm LVPW Diastolic Thickness 1.3 cm 0.6 - 1.0 / 0.6 - 0.9 cm LV Relative Wall Thickness 0.7 RV Internal Dim ED PLAX 2.9 cm LVOT Diameter 2.0 cm LA Systolic Diameter LX 4.4 cm 3.0 - 4.0 / 2.7 - 3.8 cm M-MODE Aortic Root Diameter MM 2.9 cm LA Systolic Diameter MM 4.1 cm LA Ao Ratio MM 1.4 AV Cusp Separation MM 1.8 cm DOPPLER AV Peak Velocity 238.0 cm/s AV Peak Gradient 22.7 mmHg AV Mean Gradient 12.0 mmHg AV Velocity Time Integral 53.8 cm LVOT Peak Velocity 209.0 cm/s LVOT Peak Gradient 17.5 mmHg LVOT Velocity Time Integral 42.7 cm LVOT Cardiac Index 3823.9 cm/minm AV Area Cont Eq vti 2.5 cm AV Area Cont Eq pk 2.8 cm MV Area PHT 2.6 cm Mitral E Point Velocity 84.1 cm/s Mitral A Point Velocity 66.3 cm/s Mitral E to A Ratio 1.3 LV E' Lateral Velocity 7.2 cm/s Mitral E to LV E' Lateral Ratio 11.6 LV E' Septal Velocity 4.8 cm/s Mitral E to LV E' Septal Ratio 17.7 TR Peak Velocity 228.0 cm/s TR Peak Gradient 20.8 mmHg Right Atrial Pressure 10.0 mmHg Pulmonary Artery Systolic Pressu 30.8 mmHg Right Ventricular Systolic Press 30.8 mmHg FINDINGS LEFT VENTRICLE The left ventricular systolic function is low normal with an estimated ejection fraction in the rang e of 50- 55%. There is assymetric septal hypertrophy. Normal left ventricular size. RIGHT VENTRICLE Normal right ventricular size and systolic function. LEFT ATRIUM The left atrial size is mildly dilated. RIGHT ATRIUM The right atrial size is normal. ATRIAL SEPTUM Normal atrial septal thickness without atrial level shunting by limited color doppler interrogation. AORTA The aortic root and proximal ascending aorta are normal in size on limited imaging. MITRAL VALVE Structurally normal mitral valve. Xgoo-hy-jrhcvgro mitral valve regurgitation. AORTIC VALVE Trileaflet aortic valve. No aortic valve stenosis or regurgitation. TRICUSPID VALVE Structurally normal tricuspid valve. There is mild tricuspid valve regurgitation. PULMONARY VALVE The pulmonary valve is not well visualized. VESSELS The inferior vena cava is normal in size. PERICARDIUM No pericardial effusion. Rodrigue Martel MD, FACC (Electronically Signed) Final Date:23 August 2017 17:36
--- NOTE | 2017-08-23 18:05 | PD.CARD.PN ---
Subjective Subjective Remarks No further events Heart rates now controlled Objective Medications Current Medications Medications (Trade) Dose Ordered Sig/Cam Route Start Time Stop Time Status Last Admin (NS Flush) 2 ml UNSCH PRN IV FLUSH 08/21/17 02:30 (Lopressor Inj) 5 mg Q5M PRN IV PUSH 08/21/17 02:45 08/23/17 05:12 (Brevibloc Bolus Inj) 50 mg BOLUS PRN IV PUSH 08/21/17 04:00 (Vitamin D3) 3,000 units DAILY PO 08/21/17 09:00 08/23/17 09:28 (Ranger 5-325 Mg) 1 tab Q8HR PRN PO 08/21/17 05:30 08/23/17 09:28 (Protonix) 40 mg BID PO 08/21/17 09:00 08/23/17 09:28 (Rythmol) 150 mg Q8H PO 08/21/17 06:00 08/23/17 13:05 (Carafate) 1 gm QID PO 08/21/17 09:00 08/23/17 17:03 Non-Formulary Medication 10 mg MON,WED,FRI PO 08/21/17 05:30 Sodium Chloride 1,000 ml @ 84 mls/hr [id number] IV 08/21/17 05:28 08/23/17 16:18 (NS Flush) 2 ml UNSCH PRN IV FLUSH 08/21/17 05:30 (NS Flush) 2 ml BID IV FLUSH 08/21/17 09:00 08/23/17 09:29 (Tylenol) 650 mg Q6H PRN PO 08/21/17 05:30 (Restoril) 15 mg HS PRN PO 08/21/17 05:30 Miscellaneous Information 1 Q361D XX 08/21/17 05:30 08/21/17 05:30 (Chlorhexidine 2% Cloth) 3 pack Taper DAILY@04 TOP 08/22/17 04:00 08/18/18 03:59 08/23/17 04:00 (Chlorhexidine 2% Cloth) 3 pack UNSCH PRN TOP 08/21/17 05:30 (Marlena-Colace) 1 tab BID PO 08/21/17 09:00 (Milk Of Magnesia Liq) 30 ml Q12H PRN PO 08/21/17 05:30 (Senokot) 17.2 mg Q12H PRN PO 08/21/17 05:30 (Dulcolax Supp) 10 mg DAILY PRN RECTAL 08/21/17 05:30 (Lactulose Liq) 30 ml DAILY PRN PO 08/21/17 05:30 (Heparin Inj) 5,000 units UNSCH PRN IV PUSH 08/21/17 11:45 (Heparin Inj) 2,500 units UNSCH PRN IV PUSH 08/21/17 11:45 Heparin Sodium/ Dextrose 250 ml @ 10 mls/hr TITRATE PRN IV 08/21/17 05:45 08/23/17 02:13 Esmolol HCl/ Sodium Chloride 250 ml @ 30 mls/hr TITRATE PRN IV 08/23/17 06:15 08/23/17 06:49 (Lopressor) 25 mg Q6HR PO 08/23/17 12:00 08/23/17 17:03 (Eliquis) 5 mg BID PO 08/24/17 11:00 Vital Signs / I&O Vital Signs Date Time Temp Pulse Resp B/P (MAP) Pulse Ox O2 Delivery O2 Flow Rate FiO2 08/23/17 18:00 69 08/23/17 16:00 66 08/23/17 16:00 98.4 66 20 114/71 (85) 99 08/23/17 14:00 66 08/23/17 12:00 68 08/23/17 12:00 98.4 68 18 103/55 (71) 98 08/23/17 11:35 70 16 99/61 (74) 99 08/23/17 11:30 68 17 90/55 (67) 97 08/23/17 11:15 73 24 94 08/23/17 11:00 69 21 113/67 (82) 99 08/23/17 10:50 20 08/23/17 10:45 67 22 102/63 (76) 98 08/23/17 10:30 61 15 102/61 (75) 97 08/23/17 10:15 66 17 99/59 (72) 97 08/23/17 10:00 66 08/23/17 10:00 66 14 105/66 (79) 98 08/23/17 10:00 66 105/66 08/23/17 09:45 138 16 101/71 (81) 97 08/23/17 09:30 143 16 114/84 (94) 99 08/23/17 09:30 143 20 99 08/23/17 09:30 143 114/84 08/23/17 09:15 98.6 137 20 112/91 (98) 97 08/23/17 09:00 128 08/23/17 06:49 134 145/95 08/23/17 06:00 133 08/23/17 04:00 97.7 63 16 119/61 (80) 96 08/23/17 04:00 63 08/23/17 02:00 67 08/23/17 00:00 98.5 67 17 118/59 (78) 94 08/23/17 00:00 67 08/22/17 22:00 73 08/22/17 20:00 72 08/22/17 20:00 98.7 72 29 139/77 (97) 97 I/O 08/22/17 08/22/17 08/22/17 08/23/17 08/23/17 08/23/17 07:00 15:00 23:00 07:00 15:00 23:00 Intake Total 1970 ml 1900 ml 400 ml 200 ml 720 ml Output Total 1000 ml Balance 1970 ml 1900 ml 400 ml 200 ml -280 ml Intake Oral 720 ml 900 ml 150 ml 720 ml IV Total 1250 ml 1000 ml 250 ml 200 ml Output Urine Total 1000 ml # Voids 7 3 3 # Bowel Movements 0 2 Physical Exam GENERAL: NAD, AAOx3 SKIN: Warm and dry. HEAD: Atraumatic. Normocephalic. EYES: Pupils equal and round. No scleral icterus. No injection or drainage. ENT: No nasal bleeding or discharge. Mucous membranes pink and moist. NECK: Trachea midline. No JVD. CARDIOVASCULAR: Regular rate and rhythm. RESPIRATORY: No accessory muscle use. Clear to auscultation. Breath sounds equal bilaterally. GASTROINTESTINAL: Abdomen soft, non-tender, nondistended. Hepatic and splenic margins not palpable. MUSCULOSKELETAL: Extremities without clubbing, cyanosis, or edema. No obvious deformities. NEUROLOGICAL: Awake and alert. No obvious cranial nerve deficits. Motor grossly within normal limits. Five out of 5 muscle strength in the arms and legs. Normal speech. PSYCHIATRIC: Appropriate mood and affect; insight and judgment normal. Laboratory Laboratory Tests Test 08/22/17 20:25 08/23/17 03:35 Activated Partial Thromboplast Time 41.4 SEC 44.9 SEC Assessment and Plan Problem List: (1) NSTEMI (non-ST elevated myocardial infarction) ICD Codes: I21.4 - Non-ST elevation (NSTEMI) myocardial infarction (2) Atrial fibrillation with RVR ICD Codes: I48.91 - Unspecified atrial fibrillation Status: Acute (3) HLD (hyperlipidemia) ICD Codes: E78.5 - Hyperlipidemia, unspecified Status: Chronic (4) HTN (hypertension) ICD Codes: I10 - Essential (primary) hypertension Status: Chronic (5) Paroxysmal atrial fibrillation ICD Codes: I48.0 - Paroxysmal atrial fibrillation Status: Acute (6) Chest pain ICD Codes: R07.9 - Chest pain, unspecified Status: Acute Assessment and Plan 1) NSTEMI Possible myocarditis vs Takotsubo cardiomyopathy? Does have distal LCx occlusion (1mm vessel), find it hard to believe as her cause Possible combination of cardiomyopathy, Afib and increasing LV pressures 2) Afib Currently controlled Plan to restart Eliquis tomorrow 3) 2D echo pending Duke Ross DO Aug 23, 2017 18:05
--- NOTE | 2017-08-23 20:00 | HHI.CCPN ---
Subjective Remarks/Hospital Course Hospital Course: 52-year-old female presents with a four-day history of chest pain. She states that she has been in atrial fibrillation since about 11 PM. She has a history of atrial fibrillation with rapid ventricular response. She was admitted to the hospital 08/13 for A. fib with RVR. She is on Eliquis. She was treated with a Cardizem bolus and drip. The next morning, she developed bradycardia followed by a 6 second episode of asystole. Therefore, cardiology recommended that Cardizem be avoided. She rates her pain at 10/10 and reports no known modifying factors. When I came to examine the patient she was comfortably sleeping in the bed with no complaints at that time. subjective: 08/22: complains of a "funny feeling" down her left arm, like "when you hit your funny bone" which gets worse with exertion and better at rest. Trops continue to uptrend. remains on heparin drip. likely plan to [facility] in AM. denies chest pain , nausea, shortness of breath. otherwise no complaints. ROS otherwise negative. 08/23: cath today with small left circ, otherwise no active coronary lesion. chest pain free. no additional complaints. Objective Vital Signs Date Time Temp Pulse Resp B/P (MAP) Pulse Ox O2 Delivery O2 Flow Rate FiO2 08/23/17 18:00 69 08/23/17 16:00 98.4 20 114/71 (85) 99 08/21/17 01:58 Room Air Intake and Output 08/23/17 08/23/17 08/24/17 08:00 16:00 00:00 Intake Total 400 ml 200 ml 720 ml Output Total 1000 ml Balance 400 ml 200 ml -280 ml Result Diagram: 08/22/17 0310 08/22/17 0310 Other Results Microbiology Date/Time Source Procedure Growth Status 08/22/17 19:30 Stool Stool Stool Occult Blood (IRAJ) - Final HEMOCCULT NEGATIVE Complete Objective Remarks GENERAL: middle-aged female, lying in bed. SKIN: Warm and dry. HEAD: Normocephalic. EYES: No scleral icterus. No injection or drainage. NECK: Supple, trachea midline. no JVD. CARDIOVASCULAR: Regular rate and rhythm. extremities are warm and well perfused. RESPIRATORY: Breath sounds equal bilaterally. No accessory muscle use. GASTROINTESTINAL: Abdomen soft, non-tender, nondistended. MUSCULOSKELETAL: No cyanosis, or edema. NEURO EXAM: RASS 0. GCS 15. no focal deficits. A/P Assessment and Plan Assessment: 52yF with NSTEMI and afib. stable for transfer out of ICU. If her echo shows evidence of RV strain, would pursue CT Pulmonary Angiogram, but given clinical symptomatology and no shortness of breath, hypoxia, or hypotension, very low probability for PE. would pursue Takotsubo as much higher likelihood or myocarditis. Non-STEMI - Series of troponin - Series of EKGs - Heparin drip - Cardiology consultation - 2-D echo pending Rapid A. fib with RVR - Intolerance to Cardizem in the past - Metoprolol - Propafenone - Further per cardiology Hypertension - Metoprolol Sleep apnea - CPAP if indicated DVT GI prophylaxis - Teds SCDs - Heparin drip - Pepcid transfer out of ICU. consult hospitalist service. Wander Siu MD Aug 23, 2017 20:00
[2017-08-24] VITALS (9 sets, daily range): BP systolic 111–156; BP diastolic 56–97; PULSE 52–76; RESP 17–27; TEMP 97.3–98.5; O2SAT 95–100
[2017-08-24] MEDS: METOPROLOL TARTRATE 25 MG TAB PO SCH ×3 (00:41→11:34)
[2017-08-24] MEDS: CHLORHEXIDINE GLUCONATE 2 % 1 PACK (2 CLOTHS) TOP SCH (04:00)
[2017-08-24] MEDS: SODIUM CHLOR 0.9% 1000 ML INJ 1,000 ML IV SCH (04:58)
[2017-08-24 05:25] LABS: AUTOMATED NEUTROPHIL # 11.4 TH/MM3 (1.8-7.7); BASOPHIL # 0.2 TH/MM3 (0-0.2); BASOPHIL % 0.9 % (0.0-2.0); EOSINOPHIL # 0.2 TH/MM3 (0-0.4); EOSINOPHIL % 0.9 % (0.0-4.0); HEMATOCRIT 37.2 % (35.0-46.0); HEMOGLOBIN 12.4 GM/DL (11.6-15.3); LYMPH % 24.5 % (9.0-44.0); LYMPHOCYTE # 4.5 TH/MM3 (1.0-4.8); MEAN CELL VOLUME 89.5 FL (80.0-100.0); MEAN CORPUSCULAR HEMOGLOBIN 29.8 PG (27.0-34.0); MEAN CORPUSCULAR HGB CONC 33.3 % (32.0-36.0); MEAN PLATELET VOLUME 8.1 FL (7.0-11.0); MONO % 12.3 % (0.0-8.0); MONOCYTE # 2.3 TH/MM3 (0-0.9); NEUT % 61.4 % (16.0-70.0); PLATELET COUNT 105 TH/MM3 (150-450); RED BLOOD COUNT 4.16 MIL/MM3 (4.00-5.30); RED CELL DISTRIBUTION WIDTH 13.8 % (11.6-17.2); WHITE BLOOD COUNT 18.5 TH/MM3 (4.0-11.0)
[2017-08-24 05:48] LABS: BICARBONATE 24.9 MEQ/L (21.0-32.0); CALCIUM 9.1 MG/DL (8.5-10.1); CREATININE 1.18 MG/DL (0.50-1.00)
[2017-08-24] MEDS: PROPAFENONE HCL 150 MG TAB PO SCH (06:17)
[2017-08-24] MEDS: SODIUM CHLORIDE 0.9% FLUSH 10 ML FLUSH IV FLUSH SCH (09:00)
[2017-08-24] MEDS: DOCUSATE SODIUM 50 MG/SENNA 8.6 MG TAB PO SCH (09:00)
[2017-08-24] MEDS: SUCRALFATE 1 GM TAB PO SCH (09:13)
[2017-08-24] MEDS: CHOLECALCIFEROL (VIT D3) 1000 UNIT TAB PO SCH (09:13)
[2017-08-24] MEDS: PANTOPRAZOLE SOD 40 MG DELAYED RELEASE TAB PO SCH (09:13)
[2017-08-24] MEDS ORDERED: APIXABAN 5 MG TABLET PO SCH (11:00)
--- NOTE | 2017-08-24 12:05 | PD.CARD.PN ---
Subjective Subjective Remarks No further events Heart rates now controlled Walked around the floor without chest pain/SOB Objective Medications Current Medications Medications (Trade) Dose Ordered Sig/Cam Route Start Time Stop Time Status Last Admin (NS Flush) 2 ml UNSCH PRN IV FLUSH 08/21/17 02:30 (Lopressor Inj) 5 mg Q5M PRN IV PUSH 08/21/17 02:45 08/23/17 05:12 (Brevibloc Bolus Inj) 50 mg BOLUS PRN IV PUSH 08/21/17 04:00 (Vitamin D3) 3,000 units DAILY PO 08/21/17 09:00 08/24/17 09:13 ([place] Face 5-325 Mg) 1 tab Q8HR PRN PO 08/21/17 05:30 08/23/17 09:28 (Protonix) 40 mg BID PO 08/21/17 09:00 08/24/17 09:13 (Rythmol) 150 mg Q8H PO 08/21/17 06:00 08/24/17 06:17 (Carafate) 1 gm QID PO 08/21/17 09:00 08/24/17 09:13 Non-Formulary Medication 10 mg MON,WED,FRI PO 08/21/17 05:30 Sodium Chloride 1,000 ml @ 84 mls/hr [id number] IV 08/21/17 05:28 08/24/17 04:58 (NS Flush) 2 ml UNSCH PRN IV FLUSH 08/21/17 05:30 (NS Flush) 2 ml BID IV FLUSH 08/21/17 09:00 08/23/17 20:20 (Tylenol) 650 mg Q6H PRN PO 08/21/17 05:30 (Restoril) 15 mg HS PRN PO 08/21/17 05:30 Miscellaneous Information 1 Q361D XX 08/21/17 05:30 08/21/17 05:30 (Chlorhexidine 2% Cloth) 3 pack Taper DAILY@04 TOP 08/22/17 04:00 08/18/18 03:59 08/24/17 04:00 (Chlorhexidine 2% Cloth) 3 pack UNSCH PRN TOP 08/21/17 05:30 (Marlena-Colace) 1 tab BID PO 08/21/17 09:00 (Milk Of Magnesia Liq) 30 ml Q12H PRN PO 08/21/17 05:30 (Senokot) 17.2 mg Q12H PRN PO 08/21/17 05:30 (Dulcolax Supp) 10 mg DAILY PRN RECTAL 08/21/17 05:30 (Lactulose Liq) 30 ml DAILY PRN PO 08/21/17 05:30 (Heparin Inj) 5,000 units UNSCH PRN IV PUSH 08/21/17 11:45 (Heparin Inj) 2,500 units UNSCH PRN IV PUSH 08/21/17 11:45 Heparin Sodium/ Dextrose 250 ml @ 10 mls/hr TITRATE PRN IV 08/21/17 05:45 08/23/17 02:13 Esmolol HCl/ Sodium Chloride 250 ml @ 30 mls/hr TITRATE PRN IV 08/23/17 06:15 08/23/17 06:49 (Lopressor) 25 mg Q6HR PO 08/23/17 12:00 08/24/17 11:34 (Eliquis) 5 mg BID PO 08/24/17 11:00 08/24/17 11:34 Vital Signs / I&O Vital Signs Date Time Temp Pulse Resp B/P (MAP) Pulse Ox O2 Delivery O2 Flow Rate FiO2 08/24/17 11:30 97.6 74 17 156/94 (114) 100 08/24/17 10:17 71 08/24/17 09:57 52 08/24/17 08:51 97.3 57 19 137/97 (110) 96 08/24/17 07:00 98.5 55 18 111/56 (74) 95 08/24/17 06:00 69 08/24/17 04:00 98.2 76 27 142/67 (92) 97 08/24/17 04:00 76 08/24/17 02:00 61 08/24/17 00:00 74 08/24/17 00:00 98.3 74 18 119/67 (84) 97 08/23/17 22:00 64 08/23/17 20:00 98.4 66 26 122/70 (87) 99 08/23/17 20:00 66 08/23/17 18:00 69 08/23/17 16:00 66 08/23/17 16:00 98.4 66 20 114/71 (85) 99 08/23/17 14:00 66 I/O 08/23/17 08/23/17 08/23/17 08/24/17 08/24/17 08/24/17 07:00 15:00 23:00 07:00 15:00 23:00 Intake Total 400 ml 200 ml 720 ml 1417 ml Output Total 1000 ml Balance 400 ml 200 ml -280 ml 1417 ml Intake Oral 150 ml 720 ml 240 ml IV Total 250 ml 200 ml 1177 ml Output Urine Total 1000 ml # Voids 3 4 # Bowel Movements 2 1 Physical Exam GENERAL: NAD, AAOx3 SKIN: Warm and dry. HEAD: Atraumatic. Normocephalic. EYES: Pupils equal and round. No scleral icterus. No injection or drainage. ENT: No nasal bleeding or discharge. Mucous membranes pink and moist. NECK: Trachea midline. No JVD. CARDIOVASCULAR: Regular rate and rhythm. RESPIRATORY: No accessory muscle use. Clear to auscultation. Breath sounds equal bilaterally. GASTROINTESTINAL: Abdomen soft, non-tender, nondistended. Hepatic and splenic margins not palpable. MUSCULOSKELETAL: Extremities without clubbing, cyanosis, or edema. No obvious deformities. NEUROLOGICAL: Awake and alert. No obvious cranial nerve deficits. Motor grossly within normal limits. Five out of 5 muscle strength in the arms and legs. Normal speech. PSYCHIATRIC: Appropriate mood and affect; insight and judgment normal. Laboratory Laboratory Tests Test 08/24/17 04:45 White Blood Count 18.5 TH/MM3 Red Blood Count 4.16 MIL/MM3 Hemoglobin 12.4 GM/DL Hematocrit 37.2 % Mean Corpuscular Volume 89.5 FL Mean Corpuscular Hemoglobin 29.8 PG Mean Corpuscular Hemoglobin Concent 33.3 % Red Cell Distribution Width 13.8 % Platelet Count 105 TH/MM3 Mean Platelet Volume 8.1 FL Neutrophils (%) (Auto) 61.4 % Lymphocytes (%) (Auto) 24.5 % Monocytes (%) (Auto) 12.3 % Eosinophils (%) (Auto) 0.9 % Basophils (%) (Auto) 0.9 % Neutrophils # (Auto) 11.4 TH/MM3 Lymphocytes # (Auto) 4.5 TH/MM3 Monocytes # (Auto) 2.3 TH/MM3 Eosinophils # (Auto) 0.2 TH/MM3 Basophils # (Auto) 0.2 TH/MM3 CBC Comment AUTO DIFF Differential Comment AUTO DIFF CONFIRMED Platelet Estimate LOW Platelet Morphology Comment NORMAL Red Cell Morphology Comment NORMAL Activated Partial Thromboplast Time 23.4 SEC Blood Urea Nitrogen 13 MG/DL Creatinine 1.18 MG/DL Random Glucose 90 MG/DL Calcium Level 9.1 MG/DL Sodium Level 141 MEQ/L Potassium Level 3.7 MEQ/L Chloride Level 107 MEQ/L Carbon Dioxide Level 24.9 MEQ/L Anion Gap 9 MEQ/L Estimat Glomerular Filtration Rate 48 ML/MIN Assessment and Plan Problem List: (1) NSTEMI (non-ST elevated myocardial infarction) ICD Codes: I21.4 - Non-ST elevation (NSTEMI) myocardial infarction (2) Atrial fibrillation with RVR ICD Codes: I48.91 - Unspecified atrial fibrillation Status: Acute (3) HLD (hyperlipidemia) ICD Codes: E78.5 - Hyperlipidemia, unspecified Status: Chronic (4) HTN (hypertension) ICD Codes: I10 - Essential (primary) hypertension Status: Chronic (5) Paroxysmal atrial fibrillation ICD Codes: I48.0 - Paroxysmal atrial fibrillation Status: Acute (6) Chest pain ICD Codes: R07.9 - Chest pain, unspecified Status: Acute Assessment and Plan 1) NSTEMI Does have distal LCx occlusion (1mm vessel), find it hard to believe as her cause Myocarditis? Possible combination of Afib and increasing LV pressures 2) Afib Currently controlled Eliquis restarted 3) EF 50-55% 4) Cardiovascularly stable for discharge uDke Ross DO Aug 24, 2017 12:05
[2017-08-24] MEDS ORDERED: METO50TA PO (12:17)
--- NOTE | 2017-08-24 12:21 | HHI.DCPOC ---
Discharge Care Plan Diagnosis: (1) Chest pain (2) Atrial fibrillation with RVR (3) Elevated troponin (4) Takotsubo syndrome Goals to Promote Your Health * To prevent worsening of your condition and complications * To maintain your health at the optimal level Directions to Meet Your Goals Take your medications as prescribed Follow your dietary instruction Follow activity as directed Keep your appointments as scheduled Take your immunizations and boosters as scheduled If your symptoms worsen call your PCP, if no PCP go to Urgent Care Center or Emergency Room Smoking is Dangerous to Your Health. Avoid second hand smoke Call the 24-hour hour crisis hotline for domestic abuse at Cole Bal MD Aug 24, 2017 12:21
--- NOTE | 2017-08-24 12:23 | HHI.DS ---
Discharge Summary Admission Date Aug 21, 2017 at 04:00 Discharge Date: Aug 24, 2017 Admitting Diagnosis AF with RVR, elevated trop (1) Takotsubo syndrome ICD Code: I51.81 - Takotsubo syndrome (2) Elevated troponin ICD Code: R74.8 - Abnormal levels of other serum enzymes (3) Paroxysmal atrial fibrillation ICD Code: I48.0 - Paroxysmal atrial fibrillation Status: Acute Procedures Heart catheterization Brief History - From Admission HPI as documented by the admitting physician: 52-year-old female presents with a four-day history of chest pain. She states that she has been in atrial fibrillation since about 11 PM. She has a history of atrial fibrillation with rapid ventricular response. She was admitted to the hospital 08/13 for A. fib with RVR. She is on Eliquis. She was treated with a Cardizem bolus and drip. The next morning, she developed bradycardia followed by a 6 second episode of asystole. Therefore, cardiology recommended that Cardizem be avoided. She rates her pain at 10/10 and reports no known modifying factors. When I came to examine the patient she was comfortably sleeping in the bed with no complaints at that time. CBC/BMP: 08/24/17 0445 08/24/17 0445 Significant Findings Laboratory Tests Test 08/21/17 13:47 08/21/17 20:41 08/22/17 03:10 08/22/17 12:14 Activated Partial Thromboplast Time 51.5 SEC (24.3-30.1) 39.6 SEC (24.3-30.1) 42.7 SEC (24.3-30.1) 30.3 SEC (24.3-30.1) Troponin I GREATER THAN 40.00 NG/ML White Blood Count 16.4 TH/MM3 (4.0-11.0) Platelet Count 117 TH/MM3 (150-450) Monocytes (%) (Auto) 11.1 % (0.0-8.0) Neutrophils # (Auto) 10.3 TH/MM3 (1.8-7.7) Monocytes # (Auto) 1.8 TH/MM3 (0-0.9) Basophils # (Auto) 0.3 TH/MM3 (0-0.2) Blood Urea Nitrogen 19 MG/DL (7-18) Creatinine 1.08 MG/DL (0.50-1.00) Albumin 3.2 GM/DL (3.4-5.0) Aspartate Amino Transf (AST/SGOT) 103 U/L (15-37) Estimat Glomerular Filtration Rate 53 ML/MIN (>89) Test 08/22/17 20:25 08/23/17 03:35 08/24/17 04:45 Activated Partial Thromboplast Time 41.4 SEC (24.3-30.1) 44.9 SEC (24.3-30.1) 23.4 SEC (24.3-30.1) White Blood Count 18.5 TH/MM3 (4.0-11.0) Platelet Count 105 TH/MM3 (150-450) Monocytes (%) (Auto) 12.3 % (0.0-8.0) Neutrophils # (Auto) 11.4 TH/MM3 (1.8-7.7) Monocytes # (Auto) 2.3 TH/MM3 (0-0.9) Platelet Estimate LOW (NORMAL) Creatinine 1.18 MG/DL (0.50-1.00) Estimat Glomerular Filtration Rate 48 ML/MIN (>89) Imaging Last Impressions Chest X-Ray 08/21/17 0230 Signed Impressions: Service Date/Time: Monday, August 21, 2017 02:39 - CONCLUSION: No acute disease. Damian Melendez MD Pt update on day of discharge Patient reports she is feeling better. She denies chest pain. Hospital Course 52yF with NSTEMI and afib. Treatment course detailed below: Non-STEMI - Patient was followed by Cardiology. Initially on heparin drip. SHe underwent heart cath that was unremarkable. Per Cardiology, thought symptoms are due to Takotsubo syndrome. EF 50-55% Rapid A. fib with RVR - Rate controlled on Metoprolol. Eliquis restarted. Hypertension - Continue Metoprolol Pt Condition on Discharge: Good Discharge Disposition: Discharge Home Discharge Time: <= 30 minutes Discharge Instructions DIET: Follow Instructions for: Heart Healthy Diet Activities you can perform: Regular-No Restrictions Follow up Referrals: Cardiology PCP Follow-up Changed Medications: Metoprolol Tartrate (Metoprolol Tartrate) 50 Mg Tab 50 MG PO BID, #60 TAB 0 Refills (Changed from: Metoprolol Tartrate 25 Mg Tab 25 Mg PO BID atrial fibrillation #60 TAB Ref 0) Continued Medications: Apixaban (Eliquis) 5 Mg Tab 5 MG PO BID for Blood Clot Prevention, #60 TAB 0 Refills Cholecalciferol (Vitamin D3) 3,000 Unit Tab 3000 UNITS PO DAILY for Nutritional Supplement, #1 BOTTLE 0 Refills Hydrocodone-Acetaminophen (Hydrocodone-Acetaminophen) 5-325 mg Tab 1 TAB PO Q8HR PRN for PAIN, TAB 0 Refills Pantoprazole (Pantoprazole) 40 Mg Tab 40 MG PO BID for Reflux, #30 TAB 0 Refills Propafenone (Propafenone) 150 Mg Tab 150 MG PO Q8H for atrial fibrillation, #90 TAB 0 Refills Rosuvastatin (Crestor) 20 Mg Tab 10 MG PO MON,WED,FRI for Cholesterol Management, #30 TAB 0 Refills Sucralfate (Sucralfate) 1 Gram Tab 1 GM PO QID for Duodenal ulcer, #120 TAB 0 Refills on empty stomach Cole Bal MD Aug 24, 2017 12:23
== END 2017-08-24 13:15 | disposition home or self-care (01) | DRG 281 ==
LOC: NEPC 01:53 → NEDA 04:00 → HIMN 05:45 → HCIS 08-24 08:30
PROVIDERS: ADMIT Family Medicine; ATTEND Family Medicine
PROC: B2111ZZ Fluoroscopy of Multiple Coronary Arteries using Low Osmolar Contrast (ICD-10-PCS; 2017-08-23)
PROC: B2151ZZ Fluoroscopy of Left Heart using Low Osmolar Contrast (ICD-10-PCS; 2017-08-23)
PROC: 4A023N7 Measurement of Cardiac Sampling and Pressure, Left Heart, Percutaneous Approach (ICD-10-PCS; principal; 2017-08-23 12:30)
DX: I21.4 Non-ST elevation (NSTEMI) myocardial infarction (principal); N17.9 Acute kidney failure, unspecified; I11.9 Hypertensive heart disease without heart failure; I42.2 Other hypertrophic cardiomyopathy; I48.0 Paroxysmal atrial fibrillation; M17.11 Unilateral primary osteoarthritis, right knee; E78.00 Pure hypercholesterolemia, unspecified; G47.30 Sleep apnea, unspecified; K21.9 Gastro-esophageal reflux disease without esophagitis; Z96.651 Presence of right artificial knee joint; R00.0 Tachycardia, unspecified; E78.5 Hyperlipidemia, unspecified; Z79.01 Long term (current) use of anticoagulants; Z79.899 Other long term (current) drug therapy
CPT/HCPCS: 71045; 80048; 80053; 82272; 83735; 84100; 84484; 85002; 85007; 85025; 85027; 85379; 85610; 85730; 87641; 93005; 93306; 93458; 96374; 96375; 99152; 99153; C1769; J1644; J2060; J2250; J2270; J3010; J7030; Q9967